=== PATIENT | female | born 1945 | race American Indian/Alaskan Native ===

== ENCOUNTER 2016-08-17 09:15 | Inpatient (IN) | payer MEDICARE, BC ==
--- NOTE | 2016-08-17 09:52 | ED PDOC ---
HPI: Chest Pain Time Seen by Provider: 08/17/16 09:31 Chief Complaint (Nursing): Dizziness/Lightheaded Chief Complaint (Provider): Dizziness/Lightheaded History Per: Patient History/Exam Limitations: no limitations Onset/Duration Of Symptoms: Hrs Current Symptoms Are (Timing): Still Present Associated Symptoms: denies: Nausea, Dyspnea Modifying Factors: None Exacerbating Factors: None Alleviating Factors: None Additional Complaint(s): 71 y/o female pt presents to the ER with dizziness and right-sided chest pain that started this morning. Patient states she has a past medical history of diabetes and CAD status post CABG. Patient denies palpations, syncope, nausea or vomiting. PT also reports left lower extremity pain with no swelling or calf tenderness. Past Medical History Reviewed: Historical Data, Nursing Documentation, Vital Signs Vital Signs: Last Vital Signs Temp 98.8 F 08/17/16 09:41 Pulse 76 08/17/16 09:41 Resp 18 08/17/16 09:41 BP 138/83 08/17/16 09:41 Pulse Ox 98 08/17/16 11:05 - Medical History PMH: Asthma (mild), CAD, COPD, Diabetes (type II), HTN, Hypercholesterolemia, Kidney Stones Denies: Chronic Kidney Disease - Surgical History Surgical History: CABG (quadruple), Coronary Stent Denies: Pacemaker - Family History Family History: States: Unknown Family Hx - Living Arrangements Living Arrangements: Alone - Home Medications Home Medications: Ambulatory Orders Medication Instructions Recorded Aspirin [Ecotrin] 81 mg PO DAILY 01/15/16 Clopidogrel [Plavix] 75 mg PO DAILY 01/15/16 Hydrochlorothiazide [Microzide] 12.5 mg PO DAILY 01/15/16 Insulin Glargine,Hum.rec.anlog 70 units SQ HS 01/15/16 [Toujeo Solostar] Insulin Lispro [humALOG] 14 units SQ BRK 01/15/16 Lisinopril [Zestril] 20 mg PO DAILY 01/15/16 Metoprolol Tartrate [Lopressor] 100 mg PO DAILY 01/15/16 SITagliptin [Januvia] 25 mg PO DAILY 01/15/16 amLODIPine [Norvasc] 5 mg PO DAILY 01/15/16 Cholecalciferol [Vitamin D 1000 IU] 1,000 unit PO DAILY 03/14/16 Insulin Lispro [humALOG] 18 unit SC ACL 03/14/16 Insulin Lispro [humALOG] 20 unit SC DIN 03/14/16 Nitroglycerin [Nitrostat] 0.4 mg SL Q5MIN PRN 03/14/16 - Allergies Allergies/Adverse Reactions: Allergies Allergy/AdvReac Type Severity Reaction Status Date / Time Penicillins Allergy RASH Verified 08/17/16 09:41 Wells Criteria for PE - Wells Criteria for Pulmonary Embolism Clinical Signs and Symptoms of DVT: No P.E is #1 Diagnosis, or Equally Likely: No Heart Rate >100: No Immobilization at least 3 days;Surgery previous 4 weeks: No Previous, objectively diagnosed PE or DVT: No Hemoptysis: No Malignancy w/treatment within 6 months, or palliative: No Total Score: 0 Review of Systems ROS Statement: Except As Marked, All Systems Reviewed And Found Negative Cardiovascular: Positive for: Chest Pain. Negative for: Palpitations Respiratory: Negative for: Shortness of Breath Gastrointestinal: Negative for: Nausea, Vomiting, Abdominal Pain Musculoskeletal: Positive for: Leg Pain Neurological: Positive for: Dizziness. Negative for: Weakness, Numbness, Headache Physical Exam - Reviewed Nursing Documentation Reviewed: Yes Vital Signs Reviewed: Yes - Physical Exam Appears: Positive for: Non-toxic, No Acute Distress Skin: Positive for: Normal Color, Warm Eye Exam: Positive for: Normal appearance, PERRL Neck: Positive for: Normal Cardiovascular/Chest: Positive for: Regular Rate, Rhythm. Negative for: Murmur Respiratory: Positive for: Normal Breath Sounds. Negative for: Respiratory Distress Gastrointestinal/Abdominal: Positive for: Normal Exam. Negative for: Tenderness Extremity: Positive for: Normal ROM. Negative for: Pedal Edema, Calf Tenderness Neurologic/Psych: Positive for: Alert, Oriented - Laboratory Results Result Diagrams: 08/17/16 09:55 08/17/16 09:55 - ECG O2 Sat by Pulse Oximetry: 98 (RA) Pulse Ox Interpretation: Normal Medical Decision Making Medical Decision Making: Time: 09:35 Initial impression: Dizziness and Chest Pain Initial plan: --CT-HEAD --EKG --CMP --TROPONIN --EKG-ED --CBC --CHEST X-RAY Time: 1045 Labs reviewed all WNL including negative Troponin Time:1100 CT-head results reviewed PROCEDURE: CT HEAD WITHOUT CONTRAST. HISTORY: r/o bleed COMPARISON: None available. TECHNIQUE: Axial computed tomography images were obtained through the head/brain without intravenous contrast. Radiation dose: Total exam DLP = 864.25 mGy-cm. This CT exam was performed using one or more of the following dose reduction techniques: Automated exposure control, adjustment of the mA and/or kV according to patient size, and/or use of iterative reconstruction technique. FINDINGS: HEMORRHAGE: No acute parenchymal, subarachnoid or extra-axial hemorrhage. BRAIN: Mild chronic periventricular white matter ischemic changes seen extending peripherally into the deep and subcortical white matter both cerebral hemispheres. None there may also be some extension of these changes into the white matter tracts of both basal nuclei. Mild vascular calcifications VENTRICLES: Mild age-appropriate volume loss CALVARIUM: There are no acute calvarial fracture seen. O. PARANASAL SINUSES: Unremarkable as visualized. No significant inflammatory changes. MASTOID AIR CELLS: Unremarkable as visualized. No inflammatory changes. OTHER FINDINGS: None. IMPRESSION: No acute intracranial hemorrhage. Mild chronic white matter ischemic changes. There appears to be some extension of these changes into white matter tracts of both basal nuclei. Mild generalized volume loss. Scribe Attestation: Documented by Petra Maza, Training Under Rhona Hatfield acting as a scribe for Santiago Clement MD MD Scribe Attestation: All medical record entries made by the Scribe were at my direction and personally dictated by me. I have reviewed the chart and agree that the record accurately reflects my personal performance of the history, physical exam, medical decision making, and the department course for this patient. I have also personally directed, reviewed, and agree with the discharge instructions and disposition. Disposition - Clinical Impression Clinical Impression: Dizziness, Chest pain - Patient ED Disposition Is Patient to be Admitted: Yes - Disposition Disposition Time: 11:39 Condition: FAIR - Pt Status Changed To: Hospital Disposition Of: Observation - POA Present On Arrival: None
[2016-08-17 10:12] LABS: ALB/GLOB RATIO 1.1 (1.0-2.1); BILIRUBIN,TOTAL 0.3 mg/dl (0.2-1.3); CALCIUM 9.4 mg/dL (8.4-10.2); POTASSIUM 3.9 MMOL/L (3.6-5.0); TOTAL PROTEIN 7.5 G/DL (6.3-8.2)
[2016-08-17 10:23] LABS: TROPONIN I 0.023 ng/mL (0.00-0.120)
--- NOTE | 2016-08-17 10:31 | RAD ---
HISTORY: dizziness COMPARISON: Comparison chest 03/14/2016 TECHNIQUE: Chest PA and lateral FINDINGS: LUNGS: Mild bibasilar atelectasis PLEURA: No significant pleural effusion identified. No pneumothorax apparent. CARDIOVASCULAR: Sternotomy wires and CABG clips. Heart size is upper limits of normal/borderline enlarged. Aorta is slightly ectatic and uncoiled. OSSEOUS STRUCTURES: No significant abnormalities. VISUALIZED UPPER ABDOMEN: Normal. OTHER FINDINGS: None. IMPRESSION: Mild bibasilar atelectasis
[2016-08-17 10:33] LABS: BASO # 0.1 K/uL (0.0-0.2); BASO % 0.6 % (0.0-2.0); EOS # 0.3 K/uL (0.0-0.7); EOS % 3.6 % (0.0-4.0); HEMATOCRIT 31.4 % (34.0-47.0); LYMPH # 1.8 K/uL (1.0-4.3); LYMPH % 21.1 % (20.0-40.0); MEAN CELL VOLUME 82.3 fl (81.0-99.0); MEAN CORPUSCULAR HEMOGLOBIN 26.6 pg (27.0-31.0); MEAN CORPUSCULAR HGB CONC 32.3 g/dL (33.0-37.0); MEAN PLATELET VOLUME 9.8 fl (7.2-11.7); MONO # 0.6 K/uL (0.0-0.8); MONO % 7.2 % (0.0-10.0); NEUT # 5.8 K/uL (1.8-7.0); NEUT % 67.5 % (50.0-75.0); WHITE BLOOD COUNT 8.6 K/uL (4.8-10.8)
--- NOTE | 2016-08-17 10:58 | CT ---
PROCEDURE: CT HEAD WITHOUT CONTRAST. HISTORY: r/o bleed COMPARISON: None available. TECHNIQUE: Axial computed tomography images were obtained through the head/brain without intravenous contrast. Radiation dose: Total exam DLP = 864.25 mGy-cm. This CT exam was performed using one or more of the following dose reduction techniques: Automated exposure control, adjustment of the mA and/or kV according to patient size, and/or use of iterative reconstruction technique. FINDINGS: HEMORRHAGE: No acute parenchymal, subarachnoid or extra-axial hemorrhage. BRAIN: Mild chronic periventricular white matter ischemic changes seen extending peripherally into the deep and subcortical white matter both cerebral hemispheres. None there may also be some extension of these changes into the white matter tracts of both basal nuclei. Mild vascular calcifications VENTRICLES: Mild age-appropriate volume loss CALVARIUM: There are no acute calvarial fracture seen. O. PARANASAL SINUSES: Unremarkable as visualized. No significant inflammatory changes. MASTOID AIR CELLS: Unremarkable as visualized. No inflammatory changes. OTHER FINDINGS: None. IMPRESSION: No acute intracranial hemorrhage. Mild chronic white matter ischemic changes. There appears to be some extension of these changes into white matter tracts of both basal nuclei. Mild generalized volume loss.
[2016-08-17] MEDS: Insulin Lispro (humaLOG) 100 Units/ml Inj SC SCH ×2 (17:50→22:42)
--- NOTE | 2016-08-17 18:24 | US ---
PROCEDURE: Right lower extremity venous Doppler dated 08/17/2016 HISTORY: left leg pain, r/o DVT COMPARISON: Comparison made with prior bilateral lower extremity venous Doppler study dated 05/03/2013. TECHNIQUE: Sonographic evaluation of the deep veins right lower extremity performed in standard fashion. FINDINGS: Visualized deep veins of the right lower extremity exhibit normal flow, compressibility augmentation without evidence of DVT IMPRESSION: No evidence of DVT seen within the visualized deep veins right lower extremity.
[2016-08-17 18:52] VITALS: BMI 30.1
--- NOTE | 2016-08-17 21:46 | CP.PCM.HP ---
History of Present Illness - History of Present Illness History of Present Illness: 71 y/o female pt with past medical history of diabetes CKD and CAD status post CABG presents to the ER with dizziness and right-sided chest pain that started this morning. Patient states she had similar sx yesterday associated with exertion. Pt recently seen in office for uncontrolled HTN and Diabetes Present on Admission - Present on Admission Any Indicators Present on Admission: No Past Patient History - Infectious Disease Hx of Infectious Diseases: None - Tetanus Immunizations Tetanus Immunization: Unknown - Past Medical History & Family History Past Medical History?: Yes - Past Social History Smoking Status: Former Smoker - CARDIAC Hx Cardiac Disorders: Yes Hx Hypercholesterolemia: Yes Hx Hypertension: Yes - PULMONARY Hx Respiratory Disorders: Yes Hx Asthma: Yes Hx Chronic Obstructive Pulmonary Disease (COPD): Yes - NEUROLOGICAL Hx Neurological Disorder: No - HEENT Hx HEENT Problems: No - RENAL Hx Chronic Kidney Disease: Yes Hx Kidney Stones: Yes - ENDOCRINE/METABOLIC Hx Endocrine Disorders: Yes Hx Diabetes Mellitus Type 2: Yes - HEMATOLOGICAL/ONCOLOGICAL Hx Blood Disorders: No Hx Blood Transfusions: No Hx Blood Transfusion Reaction: No Other/Comment: DVT at the age of 28yrs old. - INTEGUMENTARY Hx Dermatological Problems: No - MUSCULOSKELETAL/RHEUMATOLOGICAL Hx Falls: No - GASTROINTESTINAL Hx Gastrointestinal Disorders: No - GENITOURINARY/GYNECOLOGICAL Hx Genitourinary Disorders: No - PSYCHIATRIC Hx Substance Use: No - SURGICAL HISTORY Hx Coronary Artery Bypass Graft: Yes (quadruple) Hx Coronary Stent: Yes Hx Hysterectomy: Yes Hx Tonsillectomy: Yes - ANESTHESIA Hx Anesthesia: Yes Hx Anesthesia Reactions: No Hx Malignant Hyperthermia: No Has any member of the family had a problem w/ anesthesia?: No Meds Allergies/Adverse Reactions: Allergies Allergy/AdvReac Type Severity Reaction Status Date / Time Penicillins Allergy RASH Verified 08/17/16 09:41 Physical Exam - Respiratory Exam Respiratory Exam: NORMAL BREATHING PATTERN - Cardiovascular Exam Cardiovascular Exam: REGULAR RHYTHM - GI/Abdominal Exam GI & Abdominal Exam: Normal Bowel Sounds Results - Vital Signs Recent Vital Signs: Last Vital Signs Temp 98.4 F 08/17/16 19:20 Pulse 69 08/17/16 20:37 Resp 20 08/17/16 19:20 BP 164/79 H 08/17/16 19:20 Pulse Ox 97 08/17/16 19:20 - Labs Result Diagrams: 08/17/16 09:55 08/17/16 09:55 Labs: Laboratory Results - last 24 hr 08/17/16 08/17/16 16:19 17:12 POC Glucose (mg/dL) 142 H Troponin I 0.0260 Assessment & Plan - Assessment and Plan (Free Text) Assessment: Dizziness and right-sided chest pain CAD status post CABG EKG [facility]iology DM CKD uncontrolled Endo HTN uncontrolled Monitor closely - Date & Time Date: 08/17/16 Time: 22:22
[2016-08-17] MEDS: Insulin Detemir 100 Units/ml Inj SC SCH (22:42)
--- NOTE | 2016-08-17 23:16 | CON ---
DATE: 08/17/2016 ROOM: 410 HISTORY OF PRESENT ILLNESS: This is a 71-year-old female with known history of type 2 insulin-requir ing diabetes, presenting here with sudden onset of precordial chest pain and supervening dizziness an d lightheadedness and has now been admitted for workup of acute coronary syndrome, especially in the light of significant cardiac vasculopathy. PAST MEDICAL HISTORY: As mentioned above, history of uncontrolled type 2 requiring diabetes, current ly on the basal and bolus insulin drug combination as given. Her last A1c done almost a year ago was 9.1%. She is currently on a combination of Toujeo given as basal insulin at 70 units at bedtime wit h Humalog given at a dose of 14 units a.c. breakfast, 18 units a.c. lunch and 20 units a.c. dinner. She is also on Januvia at 25 mg once daily. History of coronary artery disease with a previous quadr uple coronary artery bypass graft surgery with subsequent stent placement, history of diabetic retino rojelio, polyneuropathy and nephropathy with progressive renal insufficiency and underlying chronic kid ramón disease, history of peripheral arterial disease and vasculopathy, history of primary hyperparathy roidism with prior history of nephrolithiasis. History of chronic obstructive lung disease and also chronic asthma. FAMILY HISTORY: Positive for hypertension and diabetes. SOCIAL HISTORY: The patient has supportive family. No known substance use. REVIEW OF SYSTEMS: Admits to generalized body weakness with easy fatigability and tiredness and subo ptimal energy level. Also admits to sudden onset of dizziness and lightheadedness, worse on the day of admission. Moreover, admits to sudden onset of precordial chest pain with supervening shortness o f breath, especially on exertion. Her oral intake is variable and admits to nausea and dyspepsia and vague upper abdominal pain with habitual constipation. PHYSICAL EXAMINATION: GENERAL: This is an average built female in no apparent distress. VITAL SIGNS: Blood pressure of 140/80, pulse of 70 beats per minute and regular, temperature 98, res pirations 20. Height is 5 feet 3, weight is 170 pounds. HEENT: Head normocephalic. Eyes anicteric with pink conjunctivae. Fundoscopy not possible at this time. Ears, nose and throat otherwise normal. NECK: Supple. Thyroid gland is normal size. No carotid bruits. No cervical adenopathy. CARDIOPULMONARY: Some adynamic precordium. S1, S2 is rapid and regular. LUNGS: Clear to auscultation. ABDOMEN: Flat, soft with positive bowel sounds. EXTREMITIES: No peripheral edema. Pulses are +2 bilaterally. LABORATORY DATA: Chemistry showed a BUN of 29, sodium 139, potassium 3.9, chloride 105, CO2 of 25, g lucose 187 and creatinine 2.1. Her subsequent glucose level is 142. Troponin of 0.23 and 0.26. ASSESSMENT: This is a 71-year-old female with uncontrolled type 2 insulin-requiring diabetes, efren whittaker here with sudden onset of dizziness and lightheadedness with associated precordial chest pain an d now undergoing evaluation for acute coronary syndrome. She has a significant history of cardiac va sculopathy with coronary artery disease and a previous quadruple coronary artery bypass graft surgery and subsequent stent placement. She also has diabetic microvascular complications of retinopathy, p olyneuropathy, and nephropathy with underlying chronic kidney disease. PLAN OF MANAGEMENT: As discussed with the patient and the staff, we will continue the current basal and bolus insulin drug combination as given. We will titrate incrementally as indicated to optimize metabolic control. We will give her a very minimal coverage scale with Humalog coverage as ordered a nd detailed orders have been given to obviate hypoglycemia. We will obtain a parathyroid hormone int act level to screen for underlying secondary primary hyperparathyroidism, especially in the light of a prior parathyroid related hypercalcemia. We will also obtain a hemoglobin A1c to confirm her prior glycemic control and baseline thyroid function studies and lipid panel will be ordered. We will obt ain a serum phosphorus and magnesium level and also advised 25-hydroxy vitamin D level. We will foll ow and advise accordingly. Vika Villanueva MD cc: [id number] TT: 08/17/2016 23:15:33 Confirmation # [id number] Dictation # [id number] mn
[2016-08-18 06:09] LABS: BILIRUBIN,TOTAL 0.3 mg/dl (0.2-1.3); CALCIUM 9.5 mg/dL (8.4-10.2); MAGNESIUM 2.3 MG/DL (1.6-2.3); PHOSPHOROUS 3.9 mg/dl (2.5-4.5); POTASSIUM 3.7 MMOL/L (3.6-5.0); TOTAL PROTEIN 7.3 G/DL (6.3-8.2)
[2016-08-18 06:42] LABS: THYROID STIMULATING HORMONE 1.88 mIU/ML (0.46-4.68)
[2016-08-18] MEDS: Insulin Lispro (humaLOG) 100 Units/ml Inj SC SCH ×7 (06:53→21:43)
[2016-08-18] MEDS: Enoxaparin 30 mg Syringe SC SCH (08:43)
--- NOTE | 2016-08-18 10:32 | CP.PCM.CON ---
History of Present Illness - History of Present Illness History of Present Illness: Full Note Dictated. Atypical chest pain S/P CABG and cor Stenting (in 09/2015) DM(II)/HTN/Dyslipidemia CKD exsmoker ACS ruled out, may go home and be managed as out pt. Past Patient History - Infectious Disease Hx of Infectious Diseases: None - Tetanus Immunizations Tetanus Immunization: Unknown - Past Medical History & Family History Past Medical History?: Yes - Past Social History Smoking Status: Former Smoker - CARDIAC Hx Cardiac Disorders: Yes Hx Hypercholesterolemia: Yes Hx Hypertension: Yes - PULMONARY Hx Respiratory Disorders: Yes Hx Asthma: Yes Hx Chronic Obstructive Pulmonary Disease (COPD): Yes - NEUROLOGICAL Hx Neurological Disorder: No - HEENT Hx HEENT Problems: No - RENAL Hx Chronic Kidney Disease: Yes Hx Kidney Stones: Yes - ENDOCRINE/METABOLIC Hx Endocrine Disorders: Yes Hx Diabetes Mellitus Type 2: Yes - HEMATOLOGICAL/ONCOLOGICAL Hx Blood Disorders: No Hx Blood Transfusions: No Hx Blood Transfusion Reaction: No Other/Comment: DVT at the age of 28yrs old. - INTEGUMENTARY Hx Dermatological Problems: No - MUSCULOSKELETAL/RHEUMATOLOGICAL Hx Falls: No - GASTROINTESTINAL Hx Gastrointestinal Disorders: No - GENITOURINARY/GYNECOLOGICAL Hx Genitourinary Disorders: No - PSYCHIATRIC Hx Substance Use: No - SURGICAL HISTORY Hx Coronary Artery Bypass Graft: Yes (quadruple) Hx Coronary Stent: Yes Hx Hysterectomy: Yes Hx Tonsillectomy: Yes - ANESTHESIA Hx Anesthesia: Yes Hx Anesthesia Reactions: No Hx Malignant Hyperthermia: No Has any member of the family had a problem w/ anesthesia?: No Meds Allergies/Adverse Reactions: Allergies Allergy/AdvReac Type Severity Reaction Status Date / Time Penicillins Allergy RASH Verified 08/17/16 09:41 - Medications Medications: Current Medications Amlodipine Besylate (Norvasc) 5 mg PO DAILY [facility] Last Admin: 08/18/16 08:44 Dose: 5 mg Aspirin (Ecotrin) 81 mg PO DAILY [facility] Last Admin: 08/18/16 08:43 Dose: 81 mg Cholecalciferol (Vitamin D) 1,000 iu PO DAILY [facility] Last Admin: 08/18/16 08:43 Dose: 1,000 iu Clopidogrel Bisulfate (Plavix) 75 mg PO DAILY [facility] Last Admin: 08/18/16 08:43 Dose: 75 mg Enoxaparin Sodium (Lovenox) 30 mg SC DAILY [facility] PRN Reason: Protocol Last Admin: 08/18/16 08:43 Dose: 30 mg Hydrochlorothiazide (Microzide) 12.5 mg PO DAILY [facility] Last Admin: 08/18/16 08:45 Dose: 12.5 mg Insulin Detemir (Levemir) 70 units SC HS [facility] Last Admin: 08/17/16 22:42 Dose: Not Given Insulin Human Lispro (Humalog) 14 units SC BRK [facility] Last Admin: 08/18/16 08:44 Dose: 14 units Insulin Human Lispro (Humalog) 18 units SC ACL SHIRA Insulin Human Lispro (Humalog) 20 units SC DIN [facility] Last Admin: 08/17/16 17:50 Dose: Not Given Insulin Human Lispro (Humalog) 0 units SC ACHS [facility] PRN Reason: Protocol Last Admin: 08/18/16 06:53 Dose: Not Given Lisinopril (Zestril) 20 mg PO DAILY [facility] Last Admin: 08/18/16 08:44 Dose: 20 mg Metoprolol Tartrate (Lopressor) 100 mg PO DAILY [facility] Last Admin: 08/18/16 08:45 Dose: 100 mg Nitroglycerin (Nitrostat Sl Tab) 0.4 mg SL Q5MIN PRN PRN Reason: chest pain Sitagliptin Phosphate (Januvia) 25 mg PO DAILY [facility] Last Admin: 08/18/16 08:44 Dose: 25 mg Results - Vital Signs Recent Vital Signs: Last Vital Signs Temp 98.5 F 08/18/16 08:09 Pulse 70 08/18/16 08:45 Resp 18 08/18/16 08:09 BP 149/80 08/18/16 08:45 Pulse Ox 98 08/18/16 08:09 - Labs Result Diagrams: 08/17/16 09:55 08/18/16 05:41 Labs: Laboratory Results - last 24 hr 08/17/16 08/17/16 08/17/16 16:19 17:12 22:35 Sodium Potassium Chloride Carbon Dioxide Anion Gap BUN Creatinine Est GFR ( Amer) Est GFR (Non-Af Amer) POC Glucose (mg/dL) 142 H 124 H Random Glucose Calcium Phosphorus Magnesium Total Bilirubin AST ALT Alkaline Phosphatase Troponin I 0.0260 Total Protein Albumin Globulin Albumin/Globulin Ratio Triglycerides Cholesterol LDL Cholesterol Direct HDL Cholesterol TSH 3rd Generation 08/18/16 08/18/16 05:02 05:41 Sodium 140 Potassium 3.7 Chloride 105 Carbon Dioxide 25 Anion Gap 13 BUN 30 H Creatinine 2.1 H Est GFR ( Amer) 28 Est GFR (Non-Af Amer) 23 POC Glucose (mg/dL) 118 H Random Glucose 123 H Calcium 9.5 Phosphorus 3.9 Magnesium 2.3 Total Bilirubin 0.3 AST 26 ALT 24 Alkaline Phosphatase 69 Troponin I Total Protein 7.3 Albumin 3.7 Globulin 3.6 Albumin/Globulin Ratio 1.0 Triglycerides 383 H Cholesterol 206 H LDL Cholesterol Direct 75 HDL Cholesterol 31 TSH 3rd Generation 1.88
--- NOTE | 2016-08-18 11:47 | PN ---
DATE: 08/18/2016 ENDO FOLLOWUP NOTE ROOM: 410. SUBJECTIVE: This is a 71-year-old female with recent uncontrolled type 2 insulin-requiring diabetes, presenting here with precordial chest pain and severe bouts of dizziness and lightheadedness, johnny tlamanda undergoing a cardiac workup for acute coronary syndrome and is also being followed closely for me tabolic management. Her glycemic levels have surprisingly remained near optimal at this time and have ranged from 118-124 and 142 mg/dL. LABORATORY DATA: Her latest chemistry showed a BUN of 30, sodium 140, potassium 3.7, chloride 105, C O2 of 25, glucose 123, and creatinine 2.1. Her triglyceride levels are 383 with a cholesterol of 206 , and LDL of 75 and HDL of 31. The TSH is 1.88. ASSESSMENT: This is a 71-year-old female with uncontrolled and decompensated type 2 insulin-requirin g diabetes with prior history of suboptimal metabolic control and A1c levels ranging from 9-10%, curr ently admitted now for acute coronary syndrome and undergoing cardiac workup as noted. She also has significant diabetic microvascular complications of retinopathy, polyneuropathy, and nephropathy with underlying chronic kidney disease and progressive renal insufficiency. There is also significant hi story of diabetic macrovascular complications of coronary artery disease with a previous coronary art monica bypass graft surgery and stent placement with underlying peripheral arterial disease and vasculop athy. PLAN OF MANAGEMENT: As discussed with the patient and staff, we will continue the same basal and vandana us insulin regimen as given with Levemir given as 70 units subQ at bedtime daily as ordered. We will continue the prandial Humalog given as 14 units at breakfast time, 18 at lunchtime, and 20 at dinner time. We will continue the low-dose correction scale using Humalog insulin as ordered. We will titr ate incrementally as indicated to optimize metabolic control. We will follow and advise accordingly. Vika Villanueva MD cc: [id number] TT: 08/18/2016 11:46:23 Confirmation # [id number] Dictation # [id number]
--- NOTE | 2016-08-18 15:58 | CON ---
DATE: 08/18/2016 She is hospitalized under Dr. West's care in room 410, bed 1. HISTORY OF PRESENT ILLNESS: This 71-year-old female, hypertensive and diabetic, and ex-smoker, who required coronary bypass graft surgery more than 40 years back, and required coronary stenting in September of last year, came into the hospital complaining of a vague sense of discomfort sta rting in the right side of the neck and radiating down to the right side of her chest, unconnected to physical activities. She also complained of a sense of lightheadedness without any palpitations. T hese had occurred not during exertion. The patient has been able to walk approximately 8 blocks or s o to her physician's office without having to stop. She has never manifested overt congestive cardia c failure. She has quit smoking for more than 4-5 years now. She was recently seen by a nephrologis t because of worsening kidney status. PHYSICAL EXAMINATION: GENERAL: Shows a middle-aged female, alert, awake, coherent. VITAL SIGNS: Afebrile, comfortable at bed rest, with a respiratory rate of 16 breaths per minute and a heart rate of 70 beats per minute, regular. Her blood pressure was 134/84 mmHg. NECK: Her jugular venous pressure was not elevated. EXTREMITIES: There was no edema of lower extremity. The pedal pulses were extremely feeble. NECK: There were no carotid bruits. ABDOMEN: There were no abdominal bruits. Abdomen was soft. Liver and spleen were not palpable. CHEST: A scar of sternotomy was evident. HEART: The first and second heart sounds were normal. There was no murmur or gallop. LUNGS: There were no rales. There were scattered rhonchi and no crepitations. DIAGNOSTIC DATA: Her electrocardiogram showed sinus rhythm with a pattern of borderline left ventric ular hypertrophy with attendant ST and T changes, T inversion in lead I, aVL, lead II, and V3-V6, a p attern seen on earlier electrocardiogram of 02/2016, as well. LABORATORY DATA: Was noted. The troponin was negative on 2 consecutive samples 8 hours apart, so th ere was no evidence of myocyte injury. Her BUN and creatinine were 30 and 2.1 mg %. Her GFR was 28. Electrolytes were normal. Her triglycerides were elevated due to her diabetic status. TSH was nor mal. Her hemoglobin and hematocrit were 10.2 g and 31.4%. This was a normocytic normochromic pictur e. IMPRESSION: At this time is atypical chest pain in a patient with known coronary artery disease with status post coronary bypass graft surgeries, status post coronary stenting in 09/2015, diabetes melli tus, hypertension, dyslipidemia, with chronic kidney disease. The patient is an ex-smoker. She is s table from cardiovascular point of view. Acute coronary syndrome has been ruled out. The patient ma y be allowed to return home and continue treatment as an outpatient. Christopher López MD cc: [id number] TT: 08/18/2016 15:57:30 Confirmation # [id number] Dictation # [id number]
--- NOTE | 2016-08-18 16:46 | CP.PCM.CON ---
History of Present Illness - History of Present Illness History of Present Illness: pt seen and examined, full consult is dictated #[id number] 1.CKD-3 2.Proteinuria 3.CAD 4.HTN 5.DM r/o DM nephropathy vs htn nephrosclerosis or both r/o ch gn check 24 hr up,cr,cr cl, pth intact, hept.bsg,sb, PAPO, c3, c4 Past Patient History - Infectious Disease Hx of Infectious Diseases: None - Tetanus Immunizations Tetanus Immunization: Unknown - Past Medical History & Family History Past Medical History?: Yes - Past Social History Smoking Status: Former Smoker - CARDIAC Hx Cardiac Disorders: Yes Hx Hypercholesterolemia: Yes Hx Hypertension: Yes - PULMONARY Hx Respiratory Disorders: Yes Hx Asthma: Yes Hx Chronic Obstructive Pulmonary Disease (COPD): Yes - NEUROLOGICAL Hx Neurological Disorder: No - HEENT Hx HEENT Problems: No - RENAL Hx Chronic Kidney Disease: Yes Hx Kidney Stones: Yes - ENDOCRINE/METABOLIC Hx Endocrine Disorders: Yes Hx Diabetes Mellitus Type 2: Yes - HEMATOLOGICAL/ONCOLOGICAL Hx Blood Disorders: No Hx Blood Transfusions: No Hx Blood Transfusion Reaction: No Other/Comment: DVT at the age of 28yrs old. - INTEGUMENTARY Hx Dermatological Problems: No - MUSCULOSKELETAL/RHEUMATOLOGICAL Hx Falls: No - GASTROINTESTINAL Hx Gastrointestinal Disorders: No - GENITOURINARY/GYNECOLOGICAL Hx Genitourinary Disorders: No - PSYCHIATRIC Hx Substance Use: No - SURGICAL HISTORY Hx Coronary Artery Bypass Graft: Yes (quadruple) Hx Coronary Stent: Yes Hx Hysterectomy: Yes Hx Tonsillectomy: Yes - ANESTHESIA Hx Anesthesia: Yes Hx Anesthesia Reactions: No Hx Malignant Hyperthermia: No Has any member of the family had a problem w/ anesthesia?: No Meds Allergies/Adverse Reactions: Allergies Allergy/AdvReac Type Severity Reaction Status Date / Time Penicillins Allergy RASH Verified 08/17/16 09:41 - Medications Medications: Current Medications Amlodipine Besylate (Norvasc) 5 mg PO DAILY [facility] Last Admin: 08/18/16 08:44 Dose: 5 mg Aspirin (Ecotrin) 81 mg PO DAILY [facility] Last Admin: 08/18/16 08:43 Dose: 81 mg Cholecalciferol (Vitamin D) 1,000 iu PO DAILY [facility] Last Admin: 08/18/16 08:43 Dose: 1,000 iu Clopidogrel Bisulfate (Plavix) 75 mg PO DAILY [facility] Last Admin: 08/18/16 08:43 Dose: 75 mg Enoxaparin Sodium (Lovenox) 30 mg SC DAILY [facility] PRN Reason: Protocol Last Admin: 08/18/16 08:43 Dose: 30 mg Hydrochlorothiazide (Microzide) 12.5 mg PO DAILY [facility] Last Admin: 08/18/16 08:45 Dose: 12.5 mg Insulin Detemir (Levemir) 70 units SC HS [facility] Last Admin: 08/17/16 22:42 Dose: Not Given Insulin Human Lispro (Humalog) 14 units SC BRK [facility] Last Admin: 08/18/16 08:44 Dose: 14 units Insulin Human Lispro (Humalog) 18 units SC ACL [facility] Last Admin: 08/18/16 12:30 Dose: 18 units Insulin Human Lispro (Humalog) 20 units SC DIN [facility] Last Admin: 08/17/16 17:50 Dose: Not Given Insulin Human Lispro (Humalog) 0 units SC ACHS [facility] PRN Reason: Protocol Last Admin: 08/18/16 12:30 Dose: Not Given Lisinopril (Zestril) 20 mg PO DAILY [facility] Last Admin: 08/18/16 08:44 Dose: 20 mg Metoprolol Tartrate (Lopressor) 100 mg PO DAILY [facility] Last Admin: 08/18/16 08:45 Dose: 100 mg Nitroglycerin (Nitrostat Sl Tab) 0.4 mg SL Q5MIN PRN PRN Reason: chest pain Sitagliptin Phosphate (Januvia) 25 mg PO DAILY [facility] Last Admin: 08/18/16 08:44 Dose: 25 mg Results - Vital Signs Recent Vital Signs: Last Vital Signs Temp 98.2 F 08/18/16 16:31 Pulse 71 08/18/16 16:31 Resp 18 08/18/16 16:31 BP 148/84 08/18/16 16:31 Pulse Ox 99 08/18/16 16:31 - Labs Result Diagrams: 08/17/16 09:55 08/18/16 05:41 Labs: Laboratory Results - last 24 hr 08/17/16 08/17/16 08/17/16 16:19 17:12 22:35 Sodium Potassium Chloride Carbon Dioxide Anion Gap BUN Creatinine Est GFR ( Amer) Est GFR (Non-Af Amer) POC Glucose (mg/dL) 142 H 124 H Random Glucose Hemoglobin A1c Calcium Phosphorus Magnesium Total Bilirubin AST ALT Alkaline Phosphatase Troponin I 0.0260 Total Protein Albumin Globulin Albumin/Globulin Ratio Triglycerides Cholesterol LDL Cholesterol Direct HDL Cholesterol 25-OH Vitamin D Total TSH 3rd Generation 08/18/16 08/18/16 08/18/16 05:02 05:41 05:41 Sodium 140 Potassium 3.7 Chloride 105 Carbon Dioxide 25 Anion Gap 13 BUN 30 H Creatinine 2.1 H Est GFR ( Amer) 28 Est GFR (Non-Af Amer) 23 POC Glucose (mg/dL) 118 H Random Glucose 123 H Hemoglobin A1c 9.4 H Calcium 9.5 Phosphorus 3.9 Magnesium 2.3 Total Bilirubin 0.3 AST 26 ALT 24 Alkaline Phosphatase 69 Troponin I Total Protein 7.3 Albumin 3.7 Globulin 3.6 Albumin/Globulin Ratio 1.0 Triglycerides 383 H Cholesterol 206 H LDL Cholesterol Direct 75 HDL Cholesterol 31 25-OH Vitamin D Total TSH 3rd Generation 1.88 08/18/16 08/18/16 08/18/16 05:41 11:30 15:43 Sodium Potassium Chloride Carbon Dioxide Anion Gap BUN Creatinine Est GFR ( Amer) Est GFR (Non-Af Amer) POC Glucose (mg/dL) 243 H 123 H Random Glucose Hemoglobin A1c Calcium Phosphorus Magnesium Total Bilirubin AST ALT Alkaline Phosphatase Troponin I Total Protein Albumin Globulin Albumin/Globulin Ratio Triglycerides Cholesterol LDL Cholesterol Direct HDL Cholesterol 25-OH Vitamin D Total < 12.8 L TSH 3rd Generation
--- NOTE | 2016-08-18 19:50 | CP.PCM.PN ---
Subjective - Date & Time of Evaluation Date of Evaluation: 08/11/16 Time of Evaluation: 22:22 - Subjective Subjective: Above noted Objective - Vital Signs/Intake and Output Vital Signs (last 24 hours): Temp Pulse Resp BP Pulse Ox 98.2 F 71 18 148/84 99 08/18/16 16:31 08/18/16 16:31 08/18/16 16:31 08/18/16 16:31 08/18/16 16:31 Intake and Output: 08/18/16 08/19/16 18:59 06:59 Intake Total 700 Balance 700 - Medications Medications: Current Medications Amlodipine Besylate (Norvasc) 5 mg PO DAILY [facility] Last Admin: 08/18/16 08:44 Dose: 5 mg Aspirin (Ecotrin) 81 mg PO DAILY [facility] Last Admin: 08/18/16 08:43 Dose: 81 mg Cholecalciferol (Vitamin D) 1,000 iu PO DAILY [facility] Last Admin: 08/18/16 08:43 Dose: 1,000 iu Clopidogrel Bisulfate (Plavix) 75 mg PO DAILY [facility] Last Admin: 08/18/16 08:43 Dose: 75 mg Enoxaparin Sodium (Lovenox) 30 mg SC DAILY [facility] PRN Reason: Protocol Last Admin: 08/18/16 08:43 Dose: 30 mg Hydrochlorothiazide (Microzide) 12.5 mg PO DAILY [facility] Last Admin: 08/18/16 08:45 Dose: 12.5 mg Insulin Detemir (Levemir) 70 units SC HS [facility] Last Admin: 08/17/16 22:42 Dose: Not Given Insulin Human Lispro (Humalog) 14 units SC BRK [facility] Last Admin: 08/18/16 08:44 Dose: 14 units Insulin Human Lispro (Humalog) 18 units SC ACL [facility] Last Admin: 08/18/16 12:30 Dose: 18 units Insulin Human Lispro (Humalog) 20 units SC DIN [facility] Last Admin: 08/18/16 17:08 Dose: 20 units Insulin Human Lispro (Humalog) 0 units SC ACHS [facility] PRN Reason: Protocol Last Admin: 08/18/16 17:06 Dose: Not Given Lisinopril (Zestril) 20 mg PO DAILY [facility] Last Admin: 08/18/16 08:44 Dose: 20 mg Metoprolol Tartrate (Lopressor) 100 mg PO DAILY [facility] Last Admin: 08/18/16 08:45 Dose: 100 mg Nitroglycerin (Nitrostat Sl Tab) 0.4 mg SL Q5MIN PRN PRN Reason: chest pain Sitagliptin Phosphate (Januvia) 25 mg PO DAILY [facility] Last Admin: 08/18/16 08:44 Dose: 25 mg - Labs Labs: 08/18/16 05:41 - Respiratory Exam Respiratory Exam: NORMAL BREATHING PATTERN - Cardiovascular Exam Cardiovascular Exam: REGULAR RHYTHM - GI/Abdominal Exam GI & Abdominal Exam: Normal Bowel Sounds Assessment and Plan - Assessment and Plan (Free Text) Assessment: Dizziness and right-sided chest pain CAD status post CABG EKG CE wnl Cardiology note appreciated DM CKD uncontrolled Endo Nephrology HTN uncontrolled Monitor closely
[2016-08-18] MEDS: Insulin Detemir 100 Units/ml Inj SC SCH (21:44)
[2016-08-19] MEDS: Insulin Lispro (humaLOG) 100 Units/ml Inj SC SCH ×4 (06:35→13:13)
[2016-08-19 08:18] VITALS: RESP 18
--- NOTE | 2016-08-19 08:24 | CON ---
DATE: 08/18/2016 REQUESTING PHYSICIAN: Dr. Jesús Ellis. REASON FOR RENAL CONSULTATION: Chronic kidney disease, proteinuria for further evaluation. HISTORY OF PRESENT ILLNESS: The patient is a 71-year-old elderly obese female with a past medical history significant for diabetes since age 58, hypertension since age 58, hyperlipidemia, coronary artery disease, status post CABG, quadruple in 2012 and status post stent in 2016 and chronic kidney disease, who was admitted with a chief complaint of feeling dizzy, lightheaded and near syncope, but patient claims she did not lose any consciousness. Denies any nausea, vomiting. Denies any fever, cough. Denies any abdominal pain. Denies any dysuria or frequency. The patient claims she had chest discomfort the day before yesterday but denies any chest pain today. As per the patient, she went to the grocery store yesterday and she felt dizzy and then she came out and she tried to walk. Again, she felt dizzy and then she called her daughter, who brought her to the hospital for further evaluation. The patient also claims her pressure was high yesterday. The patient is not in acute distress at this time. PAST MEDICAL HISTORY: Hypertension since age 58, diabetes since age 58, hyperlipidemia, coronary artery disease, chronic kidney disease. PAST SURGICAL HISTORY: CABG in 2012 and coronary stents, stents, in 2016. ALLERGIES: ALLERGIC TO PENICILLIN. SOCIAL HISTORY: The patient was an ex-smoker, used to smoke 1 pack per week from the age of 18 to 58, about 40 years and ex-alcohol use, used to drink on the weekends. No drug abuse. PERSONAL HISTORY: She is a , her is . FAMILY HISTORY: Not significant. She has 5 children. CURRENT MEDICATIONS: Include aspirin 81 mg daily, insulin Lispro 14 units subQ with breakfast and 18 units subQ ACL, Januvia 25 mg p.o. daily, Levemir 70 units subQ at bedtime, metoprolol 100 mg p.o. daily, Lovenox 30 mg subQ daily, hydrochlorothiazide 12.5 mg daily, nitroglycerin 0.4 mg subQ q. 5 minutes p.r.n. for chest pain, amlodipine 5 mg daily, Plavix 75 mg daily, cholecalciferol 1000 units p.o. daily and lisinopril 20 mg p.o. daily. REVIEW OF SYSTEMS: Significant for dizziness and also got loose bowel movement today. Chest pain 1 day prior to the admission. All other review of systems are reviewed and are negative. PHYSICAL EXAMINATION: VITAL SIGNS: Blood pressure this afternoon 122/74 and current blood pressure 148/84, pulse 71, respirations 18, temperature 98.2, saturation 99%. Height 5 feet 3 inches and weight is 170 pounds. GENERAL: The patient is a 71-year-old elderly obese female with height 5 feet and weight is 170 pounds. BMI 30.1. HEENT: Pupils normal, reactive to light and accommodation. Conjunctivae pink. Sclerae anicteric. Tongue is moist. NECK: Trachea is midline. LUNGS: Symmetric on both sides. Bilateral breath sounds present. Clear on auscultation. CARDIOVASCULAR: [place] in the fifth intercostal space midclavicular line. S1 and S2 audible. No murmur, no gallop. The patient has a midsternal scar present from the previous CABG. ABDOMEN: Normal in appearance, soft, tympanic. No guarding, no rigidity. No hepatosplenomegaly. The patient has a midline subumbilical scar present from the previous hysterectomy and partial ovarian surgery. PAST SURGICAL HISTORY: CABG, coronary stents x 2 in 2016 and partial hysterectomy and also bilateral big toe surgeries and also tonsillectomy and parathyroid surgery and tumor removal a long time ago. LABORATORY DATA: As of 08/17/2016, sodium 140, potassium 3.7, chloride 105, CO2 25, BUN 30, creatinine 2.1, glucose 123, calcium 9.5, hemoglobin A1c 9.4, calcium 9.5, phosphorus 3.9, magnesium 2.3, total bilirubin 0.3, AST 26, ALT 24 , alkaline phosphatase is 69, and troponin 0.026, total protein 7.3, albumin is 3.7, triglycerides 383. Cholesterol is 206, LDL 75, HDL is 31. Vitamin D level 12.8. TSH is 1.88. Urinalysis as of 05/21/2015: Yellow, clear, protein more than 300 and Ketones negative and blood is trace, nitrites negative, bilirubin is negative and urobilinogen 0.2, and leukocyte esterase negative, RBC 0-2, WBC 1-3, bacteria few. Urine microalbumin is more than 950 mg/L as of 05/02/2015. Ultrasound of the kidneys as of 02/23/2016: Right kidney 9.0x 4.5 x 4.4 cm, left kidney is 9.3 x 4.4 cm x 4.5 cm. Nonobstructing calculus, hydronephrosis identified, a 1 x 1.2 x 1.2 cm cyst along the lateral aspect of the left mid pole. No obstructing calculus or hydronephrosis identified. SUMMARY: The patient is a 71-year-old elderly female, obese, with a history of hypertension, diabetes, hyperlipidemia, coronary artery disease, status post CABG, status post 2 stents in 2016. History of partial hysterectomy and also gallstones and parathyroid tumor and bilateral big toe surgeries, proteinuria and chronic kidney disease, baseline creatinine around 1.6 on 02/18/2012 and creatinine on 01/17/2014 of 1.9, and as of 10/01/2015, serum creatinine 2.0 with a GFR of about 28 mL. In summary, the patient with hypertension, diabetes, CKD and proteinuria. 1. Chronic kidney disease stage III to IV, most likely secondary to diabetic nephropathy and cannot rule out underlying hypertensive nephrosclerosis, cannot rule out chronic glomerulonephritis. 2. Proteinuria, most likely secondary to diabetes mellitus nephropathy. 3. Hypertension. Blood pressure is stable. Continue her current medication, amlodipine and lisinopril, and try to keep her blood pressure below 130/80. 4. Diabetes. Sugars are still uncontrolled. Try to keep the hemoglobin A1c below 7. Check 24-hour urine protein, creatinine clearance, hepatitis B surface antigen, surface antibody and hep C antibody was negative in the past, and we will also check complement levels C3 and C4 and PTH intact level. We will follow with you. Thank you for allowing me to participate in your patient's care. Saida Reid MD cc: [id number] TT: 08/18/2016 18:53:11 Confirmation # [id number] Dictation # [id number] ln MTDD
[2016-08-19] MEDS: Enoxaparin 30 mg Syringe SC SCH (08:41)
[2016-08-19 12:20] VITALS: BP 143/74; PULSE 69; TEMP 98.4; O2SAT 98
--- NOTE | 2016-08-19 15:01 | PN ---
DATE: 08/19/2016 ROOM: 413. SUBJECTIVE: This is a 71-year-old female with recent uncontrolled type 2 insulin-requiring diabetes, now being followed closely for metabolic management. She presented here with acute coronary syndrom e and sudden onset of precordial chest pain and severe bouts of dizziness and lightheadedness and is currently undergoing cardiac workup as noted thereof. Her latest chemistry showed a BUN of 30, sodiu m 140, potassium 3.7, chloride 105, CO2 25, glucose 123 and creatinine 2.1. Her hemoglobin A1c is ac tually 9.4%, which is still elevated despite the aforementioned insulin drug combination therapy as n oted and given. So at this time, we will continue the same basal and bolus insulin regimen as ordered with Levemir gi gerard as 70 units subQ at bedtime daily as ordered. She actually [facility] [place] [facility] We will also continue her Humalog given as 14 units a.c. breakfast, 18 units a.c. lunch and 20 un its a.c. dinner as ordered. She also has a low-dose correction scale using Humalog insulin as given. She is scheduled for possible discharge today as noted. She will follow in my office for outpatien t diabetic management and followup. Vika iVllanueva MD cc: [id number] TT: 08/19/2016 15:01:44 Confirmation # [id number] Dictation # [id number] ria
[2016-08-19 15:40] LABS: TOTAL PROTEIN, SERUM 6.8 g/dL (6.1-8.1)
--- NOTE | 2016-08-19 16:32 | CP.PCM.PN ---
Subjective - Date & Time of Evaluation Date of Evaluation: 08/19/16 Time of Evaluation: 22:22 - Subjective Subjective: Above noted Objective - Vital Signs/Intake and Output Vital Signs (last 24 hours): Temp Pulse Resp BP Pulse Ox 98.4 F 69 18 143/74 98 08/19/16 12:20 08/19/16 12:20 08/19/16 12:20 08/19/16 12:20 08/19/16 12:20 - Medications Medications: Current Medications Amlodipine Besylate (Norvasc) 5 mg PO DAILY [facility] Last Admin: 08/19/16 08:41 Dose: 5 mg Aspirin (Ecotrin) 81 mg PO DAILY [facility] Last Admin: 08/19/16 08:38 Dose: 81 mg Cholecalciferol (Vitamin D) 1,000 iu PO DAILY [facility] Last Admin: 08/19/16 08:42 Dose: 1,000 iu Clopidogrel Bisulfate (Plavix) 75 mg PO DAILY [facility] Last Admin: 08/19/16 08:42 Dose: 75 mg Enoxaparin Sodium (Lovenox) 30 mg SC DAILY [facility] PRN Reason: Protocol Last Admin: 08/19/16 08:41 Dose: 30 mg Hydrochlorothiazide (Microzide) 12.5 mg PO DAILY [facility] Last Admin: 08/19/16 08:41 Dose: 12.5 mg Insulin Detemir (Levemir) 70 units SC HS [facility] Last Admin: 08/18/16 21:44 Dose: Not Given Insulin Human Lispro (Humalog) 14 units SC BRK [facility] Last Admin: 08/19/16 08:38 Dose: 14 units Insulin Human Lispro (Humalog) 18 units SC ACL [facility] Last Admin: 08/19/16 13:11 Dose: 18 units Insulin Human Lispro (Humalog) 20 units SC DIN [facility] Last Admin: 08/18/16 17:08 Dose: 20 units Insulin Human Lispro (Humalog) 0 units SC ACHS [facility] PRN Reason: Protocol Last Admin: 08/19/16 13:13 Dose: Not Given Lisinopril (Zestril) 20 mg PO DAILY [facility] Last Admin: 08/19/16 08:42 Dose: 20 mg Metoprolol Tartrate (Lopressor) 100 mg PO DAILY [facility] Last Admin: 08/19/16 08:40 Dose: 100 mg Nitroglycerin (Nitrostat Sl Tab) 0.4 mg SL Q5MIN PRN PRN Reason: chest pain Sitagliptin Phosphate (Januvia) 25 mg PO DAILY [facility] Last Admin: 08/19/16 08:40 Dose: 25 mg - Respiratory Exam Respiratory Exam: NORMAL BREATHING PATTERN - Cardiovascular Exam Cardiovascular Exam: REGULAR RHYTHM - GI/Abdominal Exam GI & Abdominal Exam: Normal Bowel Sounds Assessment and Plan - Assessment and Plan (Free Text) Assessment: Dizziness and right-sided chest pain CAD status post CABG EKG CE wnl Cardiology note appreciated DM CKD uncontrolled Endo Nephrology HTN uncontrolled Monitor closely
--- NOTE | 2016-08-20 10:12 | CARD ---
APPROVED REPORT EKG Measurement Heart [id number] <Conclusion> Normal sinus rhythm Minimal voltage criteria for LVH, may be normal variant T wave abnormality, consider anterolateral ischemia Abnormal ECG
[2016-08-20 10:36] LABS: CREATININE, RANDOM URINE 90 mg/dL (20-320)
[2016-08-21 07:44] LABS: BETA 1 GLOBULIN 0.4 g/dL (0.4-0.6); BETA 2 GLOBULIN 0.5 g/dL (0.2-0.5); GAMMA GLOBULIN 1.2 g/dL (0.8-1.7)
[2016-08-21 14:57] LABS: GAMMA GLOBULIN 14.9 Relative %
== END 2016-08-19 17:00 | disposition home or self-care (01) | DRG 313 ==
LOC: H.ER 09:15 → H.ERHOLD 11:36 → H.TEL 15:54 → OBSVTOIN 08-18 11:56 → H.TEL 08-18 18:09
PROVIDERS: ADMIT Family Medicine Geriatric Medicine; ATTEND Family Medicine Geriatric Medicine
DX: R07.89 Other chest pain (principal); I25.10 Atherosclerotic heart disease of native coronary artery without angina pectoris; N18.4 Chronic kidney disease, stage 4 (severe); E11.21 Type 2 diabetes mellitus with diabetic nephropathy; E11.42 Type 2 diabetes mellitus with diabetic polyneuropathy; J44.9 Chronic obstructive pulmonary disease, unspecified; E11.22 Type 2 diabetes mellitus with diabetic chronic kidney disease; E11.319 Type 2 diabetes mellitus with unspecified diabetic retinopathy without macular edema; E78.00 Pure hypercholesterolemia, unspecified; I12.9 Hypertensive chronic kidney disease with stage 1 through stage 4 chronic kidney disease, or unspecified chronic kidney disease; Z95.1 Presence of aortocoronary bypass graft; Z87.891 Personal history of nicotine dependence; J45.909 Unspecified asthma, uncomplicated; I73.9 Peripheral vascular disease, unspecified; Z95.5 Presence of coronary angioplasty implant and graft; E78.5 Hyperlipidemia, unspecified; Z90.710 Acquired absence of both cervix and uterus; E21.0 Primary hyperparathyroidism; E11.65 Type 2 diabetes mellitus with hyperglycemia; E66.9 Obesity, unspecified; Z79.4 Long term (current) use of insulin

== ENCOUNTER 2016-11-18 13:07 | Inpatient (IN) | payer MEDICARE, BC ==
[2016-11-18 13:07] VITALS: BMI 30.1
[2016-11-18 14:41] LABS: BASO # 0.1 K/uL (0.0-0.2); BASO % 0.6 % (0.0-2.0); EOS # 0.3 K/uL (0.0-0.7); EOS % 3.1 % (0.0-4.0); HEMATOCRIT 33.5 % (34.0-47.0); LYMPH # 2.5 K/uL (1.0-4.3); LYMPH % 23.1 % (20.0-40.0); MEAN CELL VOLUME 81.6 fl (81.0-99.0); MEAN CORPUSCULAR HEMOGLOBIN 27.2 pg (27.0-31.0); MEAN CORPUSCULAR HGB CONC 33.4 g/dL (33.0-37.0); MEAN PLATELET VOLUME 9.2 fl (7.2-11.7); MONO % 9.7 % (0.0-10.0); NEUT # 6.8 K/uL (1.8-7.0); NEUT % 63.5 % (50.0-75.0); NRBC % 0.1 % (0.0-0.0); RED CELL DISTRIBUTION WIDTH 13.8 % (11.5-14.5); WHITE BLOOD COUNT 10.8 K/uL (4.8-10.8)
[2016-11-18 14:58] LABS: BILIRUBIN,TOTAL 0.4 mg/dl (0.2-1.3); CALCIUM 10.7 mg/dL (8.4-10.2); POTASSIUM 3.9 MMOL/L (3.6-5.0); TOTAL PROTEIN 8.3 G/DL (6.3-8.2)
--- NOTE | 2016-11-18 15:10 | ED PDOC ---
HPI: General Adult Time Seen by Provider: 11/18/16 13:40 Chief Complaint (Nursing): Weakness/Neurological Deficit Chief Complaint (Provider): weakness History Per: Patient History/Exam Limitations: no limitations Additional Complaint(s): 71yo F in ED sent by Caleb FARLEY for eval of worsening HgAC-1, creatine unstable gait worsening SOB with recent hx of bypass surgery(2stent placement) and generalized weakness ongoing for 4 months. admits to cramping to LE b/l with occasional sharp shooting pain. denies CP, MENDOZA, dizziness Past Medical History Reviewed: Historical Data, Nursing Documentation, Vital Signs Vital Signs: Last Vital Signs Temp 98.0 F 11/18/16 13:15 Pulse 75 11/18/16 13:15 Resp 16 11/18/16 13:15 BP 152/87 H 11/18/16 13:15 Pulse Ox 100 11/18/16 15:29 - Medical History PMH: Asthma, CAD, COPD, Diabetes (type II), HTN, Hypercholesterolemia, Kidney Stones, Chronic Kidney Disease - Surgical History Surgical History: CABG (quadruple), Coronary Stent, Tonsillectomy Denies: Pacemaker - Family History Family History: States: Unknown Family Hx - Home Medications Home Medications: Ambulatory Orders Medication Instructions Recorded Clopidogrel [Plavix] 75 mg PO DAILY 01/15/16 Hydrochlorothiazide [Microzide] 12.5 mg PO DAILY 01/15/16 Insulin Glargine,Hum.rec.anlog 70 units SQ HS 01/15/16 [Toujeo Solostar] Metoprolol Tartrate [Lopressor] 100 mg PO DAILY 01/15/16 SITagliptin [Januvia] 25 mg PO DAILY 01/15/16 amLODIPine [Norvasc] 5 mg PO DAILY 01/15/16 Nitroglycerin [Nitrostat] 0.4 mg SL Q5MIN PRN 03/14/16 Albuterol Sulfate [Proair Hfa] 2 puff IH Q4H PRN 11/18/16 Aspirin [Ecotrin] 81 mg PO DAILY 11/18/16 Insulin Lispro [Humalog Kwikpen 14 unit SC BRK 11/18/16 U-200] Insulin Lispro [Humalog Kwikpen 18 unit SC ACL 11/18/16 U-200] Insulin Lispro [Humalog Kwikpen 24 unit SC DIN 11/18/16 U-200] LORazepam [Ativan] 0.5 mg PO BID PRN 11/18/16 Losartan [Cozaar] 50 mg PO DAILY 11/18/16 Travoprost [Travatan Z] 1 drop EACHEYE HS 11/18/16 - Allergies Allergies/Adverse Reactions: Allergies Allergy/AdvReac Type Severity Reaction Status Date / Time Penicillins Allergy RASH Verified 11/18/16 13:14 Review of Systems ROS Statement: Except As Marked, All Systems Reviewed And Found Negative Constitutional: Positive for: Weakness, Malaise Respiratory: Positive for: Shortness of Breath Musculoskeletal: Positive for: Leg Pain Neurological: Positive for: Weakness Physical Exam - Reviewed Nursing Documentation Reviewed: Yes Vital Signs Reviewed: Yes - Physical Exam Appears: Positive for: Well, Non-toxic, No Acute Distress Skin: Positive for: Normal Color, Warm, DRY Eye Exam: Positive for: EOMI, Normal appearance, PERRL ENT: Positive for: Normal ENT Inspection Cardiovascular/Chest: Positive for: Regular Rate, Rhythm Respiratory: Positive for: CNT, Normal Breath Sounds Gastrointestinal/Abdominal: Positive for: Normal Exam, Bowel Sounds, Soft. Negative for: Tenderness Back: Positive for: Normal Inspection Extremity: Negative for: Tenderness, Pedal Edema, Calf Tenderness, Swelling Neurologic/Psych: Positive for: Alert, Oriented - Laboratory Results Result Diagrams: 11/18/16 14:38 11/18/16 14:38 - ECG ECG Rhythm: Positive for: Normal QRS, Sinus Rhythm, ST/T Changes Interpretation Of Abn EKG: ST and T wave abd-inferiror and anterolateral ischemia-changes noted from most previous EKG. anibal FARLEY mad aware O2 Sat by Pulse Oximetry: 100 Medical Decision Making Medical Decision Making: Pt with known CKD hence elevated Hgba-1cCreatine and BUN-will consult Endocrinology and nephrology pt will be admitted to [facility] and received consult for EKG changes by Conor Mckeon MD Disposition - Clinical Impression Clinical Impression: Acute weakness, Elevated creatine kinase level - Patient ED Disposition Is Patient to be Admitted: Yes - Disposition Disposition Time: 16:09 Condition: STABLE Instructions: Weakness (ED) Forms: [facility] (Belarusian) - Pt Status Changed To: Hospital Disposition Of: Inpatient - Admit Certification Admit to Inpatient:: After my assessment, the patient will require hospitalization for at least two midnights. This is because of the severity of symptoms shown, intensity of services needed, and/or the medical risk in this patient being treated as an outpatient.
[2016-11-18 15:16] LABS: TROPONIN I 0.017 ng/mL (0.00-0.120)
--- NOTE | 2016-11-18 15:23 | RAD ---
HISTORY: cough COMPARISON: 08/17/2016 TECHNIQUE: Chest PA and lateral FINDINGS: LUNGS: No active pulmonary disease. PLEURA: No significant pleural effusion identified. No pneumothorax apparent. CARDIOVASCULAR: Normal heart size. Sternotomy wires. Tortuous descending thoracic aorta. OSSEOUS STRUCTURES: No significant abnormalities. VISUALIZED UPPER ABDOMEN: Normal. OTHER FINDINGS: None. IMPRESSION: No active disease.
[2016-11-18] MEDS ORDERED: Sodium Chloride 0.9% 1,000 ML IV STA (18:42)
[2016-11-18] MEDS ORDERED: Patient's Own Med (Albuterol Sulfate 2 PUFF) IH PRN (23:14)
[2016-11-18] MEDS ORDERED: Albuterol HFA 90 mcg/actuation (8 g) INH PRN (23:28)
[2016-11-18] MEDS ORDERED: Sodium Chloride 0.45% 1,000 ML IV SCH (23:30)
--- NOTE | 2016-11-19 01:39 | CON ---
ENDOCRINOLOGY CONSULT DATE: LOCATION: Room #417. HISTORY OF PRESENT ILLNESS: This is a 71-year-old female with known history of type 2 insulin-requiring diabetes, presenting here with precordial chest pain and associated generalized body weakness and is now being referred for diabetic evaluation and management. PAST MEDICAL HISTORY: As mentioned above, history of type 2 insulin-requiring diabetes, currently on a combination of Humalog given as 14 units a.c. breakfast, 18 units a.c. lunch and 24 units a.c. dinner as given with Toujeo given as 70 units subcu at bedtime daily. She is also taking Januvia 25 mg once daily as given. History of diabetic retinopathy, polyneuropathy and nephropathy with underlying chronic kidney disease. Also, history of coronary artery disease with significant vasculopathy and underlying coronary artery bypass graft surgery with subsequent stent placement as noted. History of peripheral arterial disease and vasculopathy. History of chronic obstructive lung disease and chronic asthma as noted. History of diffuse osteoarthritis with osteoporosis, history of nephrolithiasis with underlying primary hyperparathyroidism and hypercalcemia. FAMILY HISTORY: Positive for diabetes, hypertension. SOCIAL HISTORY: The patient has supportive family. No known substance use. REVIEW OF SYSTEMS: As mentioned above. Admits to generalized body weakness with easy fatigability and tiredness and suboptimal energy level. Also, admits to dizziness and lightheadedness, worse on the day of admission. No substernal chest pain. Also, admits to occasional bouts of precordial chest pain with no paroxysmal nocturnal dyspnea. Admits to occasional shortness of breath only on exertion. Her oral intake is variable with nausea, dyspepsia and vague upper abdominal pains. No recent alterations of bowel or urinary patterns. PHYSICAL EXAMINATION: GENERAL: Average-built female in no apparent distress with a blood pressure of 150/90, pulse of 100 beats per minute and regular, temperature 99, respirations 20, height is 5 feet 3 inches, weight is 170 pounds. HEENT: Head normocephalic. Eyes anicteric with pink conjunctivae. Funduscopy not possible at this time. Ears, nose and throat are otherwise normal. NECK: Supple. Thyroid gland is normal in size. No carotid bruits or cervical adenopathy. CARDIOPULMONARY: Some adynamic precordium. S1, S2 is rapid and regular. Lungs are clear to auscultation. ABDOMEN: Flat, soft with positive bowel sounds. EXTREMITIES: No peripheral edema. Pulses are +2 bilaterally. LABORATORY: Chemistry showed a BUN of 39, sodium 139, potassium 3.9, chloride 103, CO2 of 24, glucose 210, creatinine 2.5, calcium is 10.7, albumin is 4.2. The glucose levels have ranged from 251-256 mg/dl. ASSESSMENT: This is a 71-year-old female with uncontrolled and decompensated type 2 insulin-requiring diabetes with suboptimal metabolic control despite a basal and bolus insulin drug combination as noted and given. She also has diabetic microvascular complications of retinopathy, polyneuropathy and nephropathy with underlying chronic kidney disease. She also has diabetic macrovascular complications of coronary artery disease with a previous coronary bypass graft surgery and subsequent coronary stent placements. Moreover, she also has peripheral arterial disease and vasculopathy as noted. Plan of management as discussed with the patient and the staff. We will continue the current basal and bolus insulin regimen as ordered and we will titrate incrementally as indicated to optimize metabolic control. We will obtain serial chemistry and supplement accordingly as needed. We will also modify the coverage scale to obviate hypoglycemia and detailed orders have been given. We will obtain a parathyroid hormone intact level and also serum phosphorus and magnesium levels and also 25-hydroxy vitamin D that this time. We will obtain serial chemistries and supplement accordingly as stated. We will follow the patient. Vika Villanueva MD
[2016-11-19 06:34] LABS: BILIRUBIN,TOTAL 0.4 mg/dl (0.2-1.3); CALCIUM 9.9 mg/dL (8.4-10.2); POTASSIUM 3.9 MMOL/L (3.6-5.0); TOTAL PROTEIN 7.3 G/DL (6.3-8.2)
[2016-11-19 06:50] LABS: T4 7.31 ug/dl (5.5-11.0)
[2016-11-19 07:04] LABS: THYROID STIMULATING HORMONE 2.82 mIU/ML (0.46-4.68)
[2016-11-19 12:15] LABS: RBC URINE 2 /hpf (0-3); URINE BILIRUBIN NEGATIVE (NEGATIVE); URINE BLOOD NEGATIVE (NEGATIVE); URINE COLOR STRAW (YELLOW); URINE GLUCOSE (UA) >=500 mg/dL (Normal); URINE KETONE NEGATIVE (NEGATIVE); URINE LEUKOCYTE ESTERASE MOD Leu/uL (Negative); URINE PROTEIN 100 mg/dL (NEGATIVE); URINE UROBILINOGEN 0.2-1.0 mg/dL (0.2-1.0); WBC URINE 42 /hpf (0-5)
[2016-11-19 12:35] LABS: URINE BACTERIA OCC (<OCC)
[2016-11-19] MEDS: Insulin Lispro (humaLOG) 100 Units/ml Inj SC SCH ×2 (12:37→13:31)
--- NOTE | 2016-11-19 16:59 | PN ---
LOCATION: In [facility], bed 2. SUBJECTIVE: This is a 71-year-old female with recent uncontrolled type 2 insulin requiring diabetes now being followed closely for metabolic management. Her glycemic levels are fluctuating but improved, and the latest glucose levels have ranged from 170 to 184 today as noted. It was 256 to 318 last night as noted. LABORATORY DATA: The latest chemistry showed a BUN of 36, sodium 140, potassium 3.9, chloride 105, CO2 of 27, glucose 184 and creatinine 2.4. So, at this time, we will continue the same basal and bolus insulin regimen to allow for dose equilibration and keep her on the Humalog given at 14 units a.c. breakfast, 18 units a.c. lunch, and 24 units a.c. dinner. We will actually increase and modify the Levemir from 56 units to 60 units subcu at bedtime daily as given. We will continue the serial chemistries and supplement accordingly as needed. We will titrate incremental as indicated to optimize metabolic control. We will follow. Vika Villanueva MD
[2016-11-19] MEDS ORDERED: Insulin Lispro (humaLOG) 100 Units/ml Inj SC SCH (17:00)
--- NOTE | 2016-11-19 17:11 | CP.PCM.HP ---
History of Present Illness - History of Present Illness History of Present Illness: 71 yo with hx of CAD s/p CABG COPD admitted for fatigue SOB unsteady gait and uncontrolled DM with worsening creatinine Present on Admission - Present on Admission Any Indicators Present on Admission: No Past Patient History - Infectious Disease Hx of Infectious Diseases: None - Tetanus Immunizations Tetanus Immunization: Unknown - Past Medical History & Family History Past Medical History?: Yes - Past Social History Smoking Status: Former Smoker - CARDIAC Hx Cardiac Disorders: Yes - PULMONARY Hx Respiratory Disorders: Yes - NEUROLOGICAL Hx Neurological Disorder: No - HEENT Hx HEENT Problems: No - RENAL Hx Chronic Kidney Disease: Yes - ENDOCRINE/METABOLIC Hx Endocrine Disorders: Yes - HEMATOLOGICAL/ONCOLOGICAL Hx Blood Disorders: Yes Hx Blood Transfusions: No Hx Blood Transfusion Reaction: No Other/Comment: DVT at the age of 28yrs old. - INTEGUMENTARY Hx Dermatological Problems: No - MUSCULOSKELETAL/RHEUMATOLOGICAL Hx Musculoskeletal Disorders: Yes Hx Falls: Yes - GASTROINTESTINAL Hx Gastrointestinal Disorders: No - GENITOURINARY/GYNECOLOGICAL Hx Genitourinary Disorders: No - PSYCHIATRIC Hx Psychophysiologic Disorder: Yes Hx Substance Use: No - SURGICAL HISTORY Hx Coronary Artery Bypass Graft: Yes (quadruple) Hx Coronary Stent: Yes Hx Tonsillectomy: Yes - ANESTHESIA Hx Anesthesia: Yes Hx Anesthesia Reactions: No Hx Malignant Hyperthermia: No Meds Allergies/Adverse Reactions: Allergies Allergy/AdvReac Type Severity Reaction Status Date / Time Penicillins Allergy RASH Verified 11/18/16 13:14 Physical Exam - Respiratory Exam Respiratory Exam: NORMAL BREATHING PATTERN - Cardiovascular Exam Cardiovascular Exam: REGULAR RHYTHM - GI/Abdominal Exam GI & Abdominal Exam: Normal Bowel Sounds Results - Vital Signs Recent Vital Signs: Last Vital Signs Temp 98.6 F 11/19/16 16:41 Pulse 81 11/19/16 16:41 Resp 20 11/19/16 16:41 BP 147/81 11/19/16 16:41 Pulse Ox 96 11/19/16 16:41 - Labs Result Diagrams: 11/18/16 14:38 11/19/16 05:15 Labs: Laboratory Results - last 24 hr 11/18/16 11/18/16 11/19/16 18:34 21:10 05:15 Sodium 140 Potassium 3.9 Chloride 105 Carbon Dioxide 27 Anion Gap 12 BUN 36 H Creatinine 2.4 H Est GFR ( Amer) 24 Est GFR (Non-Af Amer) 20 POC Glucose (mg/dL) 256 H 318 H Random Glucose 184 H Hemoglobin A1c Calcium 9.9 Magnesium 2.0 Total Bilirubin 0.4 AST 33 ALT 25 Alkaline Phosphatase 81 Troponin I Total Protein 7.3 Albumin 3.7 Globulin 3.6 Albumin/Globulin Ratio 1.0 Triglycerides 547 H D Cholesterol 223 H LDL Cholesterol Direct 64 HDL Cholesterol 31 Thyroxine (T4) 7.31 TSH 3rd Generation 2.82 Urine Color Urine Clarity Urine pH Ur Specific [place] Urine Protein Urine Glucose (UA) Urine Ketones Urine Blood Urine Nitrate Urine Bilirubin Urine Urobilinogen Ur Leukocyte Esterase Urine RBC (Auto) Urine Microscopic WBC Ur Squamous Epith Cells Urine Bacteria Ur Random Creatinine Ur Random Sodium Ur Random Potassium 11/19/16 11/19/16 11/19/16 05:15 05:29 08:50 Sodium Potassium Chloride Carbon Dioxide Anion Gap BUN Creatinine Est GFR ( Amer) Est GFR (Non-Af Amer) POC Glucose (mg/dL) 170 H Random Glucose Hemoglobin A1c 9.6 H Calcium Magnesium Total Bilirubin AST ALT Alkaline Phosphatase Troponin I 0.0180 Total Protein Albumin Globulin Albumin/Globulin Ratio Triglycerides Cholesterol LDL Cholesterol Direct HDL Cholesterol Thyroxine (T4) TSH 3rd Generation Urine Color Urine Clarity Urine pH Ur Specific [place] Urine Protein Urine Glucose (UA) Urine Ketones Urine Blood Urine Nitrate Urine Bilirubin Urine Urobilinogen Ur Leukocyte Esterase Urine RBC (Auto) Urine Microscopic WBC Ur Squamous Epith Cells Urine Bacteria Ur Random Creatinine Ur Random Sodium Ur Random Potassium 11/19/16 11/19/16 11/19/16 12:06 12:06 12:06 Sodium Potassium Chloride Carbon Dioxide Anion Gap BUN Creatinine Est GFR ( Amer) Est GFR (Non-Af Amer) POC Glucose (mg/dL) Random Glucose Hemoglobin A1c Calcium Magnesium Total Bilirubin AST ALT Alkaline Phosphatase Troponin I Total Protein Albumin Globulin Albumin/Globulin Ratio Triglycerides Cholesterol LDL Cholesterol Direct HDL Cholesterol Thyroxine (T4) TSH 3rd Generation Urine Color Straw Urine Clarity Slighty-cloudy Urine pH 6.0 Ur Specific [place] 1.008 Urine Protein 100 Urine Glucose (UA) >=500 Urine Ketones Negative Urine Blood Negative Urine Nitrate Negative Urine Bilirubin Negative Urine Urobilinogen 0.2-1.0 Ur Leukocyte Esterase Mod Urine RBC (Auto) 2 Urine Microscopic WBC 42 H Ur Squamous Epith Cells 3 Urine Bacteria Occ H Ur Random Creatinine 59.3 Ur Random Sodium 93 Ur Random Potassium 24.1 Assessment & Plan - Assessment and Plan (Free Text) Assessment: SOB Fatigue hx of CAD s/p CABG COPD Cardiology Pulmonary Uncontrolled DM Endo CKD creat 2.5 Nephrology Triglyceride 567
--- NOTE | 2016-11-19 17:27 | US ---
PROCEDURE: Ultrasound of the Kidneys HISTORY: Elevated vated BUN/Creatinine COMPARISON: Comparison made with prior renal ultrasound 02/23/2016 TECHNIQUE: Sonogram of the kidneys. FINDINGS: RIGHT KIDNEY: Measures: Approximately 9.7 x 5.8 x 4.3 cm. Normal in size and contour. Increased echogenicity suggesting underlying medical renal disease. Clinical correlation recommended. No shadowing calculi, solid mass lesion or hydronephrosis visualized. LEFT KIDNEY: Measures: Approximately 10.0 x 5.7 x 5.7 cm. Normal in size, contour and echogenicity. No shadowing calculi or solid masses. No evidence of hydronephrosis. Small cyst lower pole left kidney measuring 1.4 x 1.2 x 1.5 cm. No solid mass lesion or hydronephrosis visualized. OTHER FINDINGS: None. IMPRESSION: Findings suggest underlying mild medical renal disease. No evidence of obstructive hydrocephalus. Small cyst lower pole left kidney.
--- NOTE | 2016-11-19 17:40 | CARD ---
APPROVED REPORT EXAM: Two-dimensional and M-mode echocardiogram with Doppler and color Doppler. Other Information Quality : GoodRhythm : NSR INDICATION Congestive Heart Failure Surgery/Intervention CABD DIMENSIONS IVSd1.70 (0.7-1.1cm)LVDd3.26 (3.9-5.9cm) LVOT Diameter1.82 (1.8-2.4cm)PWd1.39 (0.7-1.1cm) IVSs1.87 (0.8-1.2cm)LVDs1.65 (2.5-4.0cm) FS (%) 49.3 %PWs1.89 (0.8-1.2cm) LVEF (%)55.0 (>50%) M-Mode DIMENSIONS Left Atrium (MM)4.68 (2.5-4.0cm)IVSd1.06 (0.7-1.1cm) Aortic Root2.47 (2.2-3.7cm)LVDd5.06 (4.0-5.6cm) Aortic Cusp Exc.1.59 (1.5-2.0cm)PWd1.38 (0.7-1.1cm) IVSs2.18 cmFS (%) 54 % LVDs2.32 (2.0-3.8cm)PWs1.65 cm Mitral Valve MV E Pkpdbqab48.0cm/sMV DECEL [id number] A Cversbqv438.7cm/s MV [id number]/A ratio0.6MVA (PHT)2.26cm2 TDI Lateral E' Peak V7.50cm/sMedial E' Peak V4.40cm/sE/Lateral E'9.1 E/Medial E'15.5 Pulmonary Valve PV Peak Ngcrgbcb553.4cm/s Tricuspid Valve TR Peak Etnvhath885ch/sRAP [id number] Peak Gr.20mmHg [id number] LEFT VENTRICLE The left ventricle is normal size. There is moderate concentric left ventricular hypertrophy. The left ventricular ejection fraction is within the normal range. There is a flattened septum in some views Transmitral Doppler flow pattern is Grade I-abnormal relaxation pattern. RIGHT VENTRICLE The right ventricle is normal size. There is normal right ventricular wall thickness. The right ventricular systolic function is normal. ATRIA The left atrium is moderately dilated. The right atrium is borderline dilated. AORTIC VALVE The aortic valve is not well visualized. No aortic regurgitation is present. There is no aortic valvular stenosis. MITRAL VALVE The mitral valve is moderately thickened. There is no mitral valve stenosis. Mitral regurgitation is mild. TRICUSPID VALVE The tricuspid valve is normal in structure There is mild tricuspid regurgitation. PULMONIC VALVE The pulmonary valve is normal in structure and function. There is no pulmonic valvular regurgitation. GREAT VESSELS The aortic root is normal in size. The IVC was not visualized. PERICARDIAL EFFUSION There is a small loculated anterior pericardial effusion. <Conclusion> The left ventricle is normal size. There is moderate concentric left ventricular hypertrophy. The left ventricular ejection fraction is within the normal range. There is a flattened septum in some views Transmitral Doppler flow pattern is Grade I-abnormal relaxation pattern. Mitral regurgitation is mild. There is mild tricuspid regurgitation. There is a small loculated anterior pericardial effusion.
--- NOTE | 2016-11-19 19:41 | CP.PCM.CON ---
History of Present Illness - History of Present Illness History of Present Illness: pt is seen and examined, full consult is dictated #[id number] Past Patient History - Infectious Disease Hx of Infectious Diseases: None - Tetanus Immunizations Tetanus Immunization: Unknown - Past Medical History & Family History Past Medical History?: Yes - Past Social History Smoking Status: Former Smoker - CARDIAC Hx Cardiac Disorders: Yes - PULMONARY Hx Respiratory Disorders: Yes - NEUROLOGICAL Hx Neurological Disorder: No - HEENT Hx HEENT Problems: No - RENAL Hx Chronic Kidney Disease: Yes - ENDOCRINE/METABOLIC Hx Endocrine Disorders: Yes - HEMATOLOGICAL/ONCOLOGICAL Hx Blood Disorders: Yes Hx Blood Transfusions: No Hx Blood Transfusion Reaction: No Other/Comment: DVT at the age of 28yrs old. - INTEGUMENTARY Hx Dermatological Problems: No - MUSCULOSKELETAL/RHEUMATOLOGICAL Hx Musculoskeletal Disorders: Yes Hx Falls: Yes - GASTROINTESTINAL Hx Gastrointestinal Disorders: No - GENITOURINARY/GYNECOLOGICAL Hx Genitourinary Disorders: No - PSYCHIATRIC Hx Psychophysiologic Disorder: Yes Hx Substance Use: No - SURGICAL HISTORY Hx Coronary Artery Bypass Graft: Yes (quadruple) Hx Coronary Stent: Yes Hx Tonsillectomy: Yes - ANESTHESIA Hx Anesthesia: Yes Hx Anesthesia Reactions: No Hx Malignant Hyperthermia: No Meds Allergies/Adverse Reactions: Allergies Allergy/AdvReac Type Severity Reaction Status Date / Time Penicillins Allergy RASH Verified 11/18/16 13:14 - Medications Medications: Current Medications Albuterol (Ventolin Hfa 90 Mcg/Actuation (8 G)) 2 puff INH Q4H PRN PRN Reason: Shortness of Breath Amlodipine Besylate (Norvasc) 5 mg PO DAILY [facility] Last Admin: 11/19/16 09:28 Dose: 5 mg Aspirin (Ecotrin) 81 mg PO DAILY [facility] Last Admin: 11/19/16 09:28 Dose: 81 mg Clopidogrel Bisulfate (Plavix) 75 mg PO DAILY [facility] Last Admin: 11/19/16 09:29 Dose: 75 mg Gabapentin (Neurontin) 100 mg PO [facility] Heparin Sodium (Porcine) (Heparin) 5,000 units SC Q12 SHIRA PRN Reason: Protocol Hydrochlorothiazide (Microzide) 12.5 mg PO DAILY [facility] Last Admin: 11/19/16 09:28 Dose: 12.5 mg Sodium Chloride (Sodium Chloride 0.45%) 1,000 mls @ 40 mls/hr IV .Q24H [facility] Stop: 11/19/16 23:24 Last Admin: 11/18/16 23:30 Dose: 40 mls/hr Insulin Detemir (Levemir) 60 units SC HS SHIRA Insulin Human Lispro (Humalog) 14 units SC BRK [facility] Last Admin: 11/19/16 12:37 Dose: Not Given Insulin Human Lispro (Humalog) 18 units SC ACL [facility] Last Admin: 11/19/16 13:31 Dose: 18 units Insulin Human Lispro (Humalog) 24 units SC DIN [facility] Last Admin: 11/19/16 18:17 Dose: 24 units Latanoprost (Xalatan Opht) 1 drop OU HS [facility] Metoprolol Tartrate (Lopressor) 100 mg PO DAILY [facility] Last Admin: 11/19/16 13:31 Dose: 100 mg Sitagliptin Phosphate (Januvia) 25 mg PO DAILY [facility] Last Admin: 11/19/16 09:28 Dose: 25 mg Zolpidem Tartrate (Ambien) 5 mg PO HS [facility] Results - Vital Signs Recent Vital Signs: Last Vital Signs Temp 98.6 F 11/19/16 16:41 Pulse 81 11/19/16 16:41 Resp 20 11/19/16 16:41 BP 147/81 11/19/16 16:41 Pulse Ox 96 11/19/16 16:41 - Labs Result Diagrams: 11/18/16 14:38 11/19/16 05:15 Labs: Laboratory Results - last 24 hr 11/18/16 11/18/16 11/19/16 18:34 21:10 05:15 Sodium 140 Potassium 3.9 Chloride 105 Carbon Dioxide 27 Anion Gap 12 BUN 36 H Creatinine 2.4 H Est GFR ( Amer) 24 Est GFR (Non-Af Amer) 20 POC Glucose (mg/dL) 256 H 318 H Random Glucose 184 H Hemoglobin A1c Calcium 9.9 Magnesium 2.0 Total Bilirubin 0.4 AST 33 ALT 25 Alkaline Phosphatase 81 Troponin I Total Protein 7.3 Albumin 3.7 Globulin 3.6 Albumin/Globulin Ratio 1.0 Triglycerides 547 H D Cholesterol 223 H LDL Cholesterol Direct 64 HDL Cholesterol 31 Thyroxine (T4) 7.31 TSH 3rd Generation 2.82 Urine Color Urine Clarity Urine pH Ur Specific [place] Urine Protein Urine Glucose (UA) Urine Ketones Urine Blood Urine Nitrate Urine Bilirubin Urine Urobilinogen Ur Leukocyte Esterase Urine RBC (Auto) Urine Microscopic WBC Ur Squamous Epith Cells Urine Bacteria Ur Random Creatinine Ur Random Sodium Ur Random Potassium 11/19/16 11/19/16 11/19/16 05:15 05:29 08:50 Sodium Potassium Chloride Carbon Dioxide Anion Gap BUN Creatinine Est GFR ( Amer) Est GFR (Non-Af Amer) POC Glucose (mg/dL) 170 H Random Glucose Hemoglobin A1c 9.6 H Calcium Magnesium Total Bilirubin AST ALT Alkaline Phosphatase Troponin I 0.0180 Total Protein Albumin Globulin Albumin/Globulin Ratio Triglycerides Cholesterol LDL Cholesterol Direct HDL Cholesterol Thyroxine (T4) TSH 3rd Generation Urine Color Urine Clarity Urine pH Ur Specific [place] Urine Protein Urine Glucose (UA) Urine Ketones Urine Blood Urine Nitrate Urine Bilirubin Urine Urobilinogen Ur Leukocyte Esterase Urine RBC (Auto) Urine Microscopic WBC Ur Squamous Epith Cells Urine Bacteria Ur Random Creatinine Ur Random Sodium Ur Random Potassium 11/19/16 11/19/16 11/19/16 11:35 12:06 12:06 Sodium Potassium Chloride Carbon Dioxide Anion Gap BUN Creatinine Est GFR ( Amer) Est GFR (Non-Af Amer) POC Glucose (mg/dL) 244 H Random Glucose Hemoglobin A1c Calcium Magnesium Total Bilirubin AST ALT Alkaline Phosphatase Troponin I Total Protein Albumin Globulin Albumin/Globulin Ratio Triglycerides Cholesterol LDL Cholesterol Direct HDL Cholesterol Thyroxine (T4) TSH 3rd Generation Urine Color Urine Clarity Urine pH Ur Specific [place] Urine Protein Urine Glucose (UA) Urine Ketones Urine Blood Urine Nitrate Urine Bilirubin Urine Urobilinogen Ur Leukocyte Esterase Urine RBC (Auto) Urine Microscopic WBC Ur Squamous Epith Cells Urine Bacteria Ur Random Creatinine 59.3 Ur Random Sodium 93 Ur Random Potassium 24.1 11/19/16 11/19/16 12:06 17:58 Sodium Potassium Chloride Carbon Dioxide Anion Gap BUN Creatinine Est GFR ( Amer) Est GFR (Non-Af Amer) POC Glucose (mg/dL) 280 H Random Glucose Hemoglobin A1c Calcium Magnesium Total Bilirubin AST ALT Alkaline Phosphatase Troponin I Total Protein Albumin Globulin Albumin/Globulin Ratio Triglycerides Cholesterol LDL Cholesterol Direct HDL Cholesterol Thyroxine (T4) TSH 3rd Generation Urine Color Straw Urine Clarity Slighty-cloudy Urine pH 6.0 Ur Specific [place] 1.008 Urine Protein 100 Urine Glucose (UA) >=500 Urine Ketones Negative Urine Blood Negative Urine Nitrate Negative Urine Bilirubin Negative Urine Urobilinogen 0.2-1.0 Ur Leukocyte Esterase Mod Urine RBC (Auto) 2 Urine Microscopic WBC 42 H Ur Squamous Epith Cells 3 Urine Bacteria Occ H Ur Random Creatinine Ur Random Sodium Ur Random Potassium
[2016-11-19] MEDS: Latanoprost 0.005% Opht SOUTION OU SCH (21:46)
[2016-11-19] MEDS: Insulin Detemir 100 Units/ml Inj SC SCH (21:47)
[2016-11-19] MEDS ORDERED: Patient's Own Med (Travoprost [Travatan Z] 1 DROP) EACHEYE SCH (22:00)
[2016-11-19] MEDS ORDERED: Insulin Detemir 100 Units/ml Inj SC SCH (22:00)
--- NOTE | 2016-11-19 23:09 | CARD ---
APPROVED REPORT EKG Measurement Heart [id number] <Conclusion> Normal sinus rhythm ST & T wave abnormality, consider inferior ischemia ST & T wave abnormality, consider anterolateral ischemia Abnormal ECG
--- NOTE | 2016-11-20 00:03 | CON ---
DATE: CHIEF COMPLAINT: Generalized weakness. HISTORY OF PRESENT ILLNESS: This is a 71-year-old woman who I know from my office with past medical history of type II diabetes mellitus, hypertension, dyslipidemia, coronary artery disease status post CABG, who comes in for shortness of breath and generalized weakness. I was called to evaluate. She recently had an EMG done in my office, which showed evidence of neuropathy from underlying diabetes. She also has left leg pain for which she was supposed to have an ankle brachial index to see it was peripheral vascular disease in nature. Currently, she was generally deconditioned; otherwise no focal weakness at this time. She does have paresthesias in the arms and legs, which is from underlying diabetic peripheral neuropathy. Endocrine consultation has been placed and is being followed and her diabetic medications have been adjusted. She has diabetic microvascular complications of retinopathy, polyneuropathy, and nephropathy with underlying chronic kidney disease. She is on aspirin and Plavix for stroke prevention. PAST MEDICAL HISTORY: History of hypertension, diabetes, dyslipidemia. FAMILY HISTORY: Noncontributory. SOCIAL HISTORY: No illicit drug use, smoking, or EtOH abuse. REVIEW OF SYSTEMS: A 14-point review of system is negative except in the HPI. ALLERGIES: PENICILLIN. MEDICATIONS: Reviewed by nurse reconciliation sheet. PHYSICAL EXAMINATION GENERAL: The patient is sitting up in bed, no acute distress. VITAL SIGNS: Temperature 98.6, pulse rate of 81, blood pressure 147/81, respirations rate of 20, oxygen saturation 92% by room air. HEENT: Head is atraumatic, normocephalic. PERRLA. Extraocular muscles intact. NECK: Supple. No JVD. No adenopathy noted. LUNGS: Clear to auscultation. No adventitious sounds. HEART: S1 and S2, normal rate and rhythm. No murmur, rubs, or gallops. ABDOMEN: Soft, nontender, nondistended. Bowel sounds present. EXTREMITIES: No clubbing. No cyanosis. Peripheral pulses 2+ felt bilaterally. NEUROLOGIC: The patient is alert and oriented to person, place, month, and year. Speech is fluent without any errors. Cranial nerves II through XII are intact. Motor exam: Moves all extremities equally. No pronator seen. Sensory exam: Decrease to light touch and pinprick up to the calves bilaterally. Decreased vibration in the toes. DTRs are 2+ throughout, 1 at the knees, and absent at the ankles. Coordination: [id number] is intact. Gait is deferred for now. LABORATORY DATA: A1c is 9.6. Sodium 140, potassium 3.9, chloride 105, carbon dioxide 27, BUN of 36, creatinine 2.4 and random glucose 184. ASSESSMENT AND PLAN: This is a 71-year-old woman history of uncontrolled diabetes type II with suboptimal metabolic control, coronary artery disease status post coronary artery bypass graft, hypertension, dyslipidemia, who with a recent EMG showing evidence of peripheral neuropathy with underlying diabetes who comes in for shortness of breath and generalized weakness. Her generalized weakness is most likely underlying deconditioned state, superimposed on underlying diabetic neuropathy. Her left leg is painful, seems more possible peripheral arterial disease. Will need ankle brachial index. At this time, recommend: 1. Gabapentin 300 mg p.o. daily at bedtime for neuropathic pain, in addition alpha-lipoic acid mg p.o. t.i.d. for neuropathic pain refill. 2. Diabetic education given. Needs to bring her blood sugar between 140 to 180 and given that her A1c is 9.6 indicating poorly controlled diabetes, needs to follow up with surgeon/president recommendation in terms of diabetic medication adjustment. 3. Recommend physical therapy for underlying deconditioned state. 4. Continue with aspirin 81 mg and Plavix 75 mg for stroke prevention. At this time, continue current present medical management. We will follow up as an outpatient. Javier Zapien MD
[2016-11-20] MEDS: Insulin Lispro (humaLOG) 100 Units/ml Inj SC SCH ×3 (09:15→18:09)
--- NOTE | 2016-11-20 09:43 | CON ---
RENAL CONSULTATION DATE: REQUESTED BY: Jesús West MD REASON FOR CONSULTATION: Chronic kidney disease for further evaluation. HISTORY OF PRESENT ILLNESS: Mrs. Moreno is a 71 years old elderly obese, female with a past medical history significant for hypertension for about 13-14 years, diabetes about 13-14 years, glaucoma, coronary artery disease, status post CABG in 2011 and subsequently the patient underwent stents placement in 2 coronaries in 2013 and also from chronic kidney disease with proteinuria who was admitted with the chief complaint of dyspnea on exertion, shortness of breath, and feeling weak and tired. As per the patient, she used to walk about 10-12 blocks and now she cannot walk even in the house, she feels weak and tired and exhausted when she walks about going from one room to the other room and even she tried to pickup her grandchild from the floor. The patient denies any chest pain. Denies any palpitations. Denies any nausea, vomiting, or diarrhea. Denies any abdominal pain. No headache. No dizziness. No swelling of the legs. No urinary complaints. PAST MEDICAL HISTORY: Significant for hypertension for 13-14 years, diabetes 13-14 years, glaucoma, coronary artery disease, chronic kidney disease, and questionable diabetic neuropathy. PAST SURGICAL HISTORY: Status post CABG and glaucoma surgery. ALLERGIES: ALLERGIC TO PENICILLIN. SOCIAL HISTORY: No smoking. No alcohol. No drugs. PERSONAL HISTORY: She is a and she has 5 children. CURRENT MEDICATIONS: Include as follows; Ambien 5 mg at bedtime, aspirin 81 mg daily, subcutaneous heparin 5000 q.12 hours, Humalog 14 units subcutaneously at breakfast and 8 units subcutaneously a.c. and Humalog 24 units subcutaneously at dinner and Januvia 25 mg p.o. daily and Levemir 60 units subcutaneously at bedtime, metoprolol 100 mg p.o. daily, hydrochlorothiazide 12.5 mg daily, gabapentin 100 mg p.o. at bedtime, amlodipine 5 mg daily, Plavix 75 mg daily, IV fluids half normal saline at 40 mL per hour, albuterol inhaler 2 puffs q.4 hours, and Xalatan eyedrops. REVIEW OF SYSTEMS: Significant for dyspnea on exertion, shortness of breath, feeling weak and tired with minimal exertion. FAMILY HISTORY: Not significant. PHYSICAL EXAMINATION: VITAL SIGNS: As follows; blood pressure 163/85, pulse 75, respirations 20, temperature 98.5, and saturation 97%. Height is 5 feet 3 inches and weight 170 pounds. GENERAL: Mrs. Moreno is a 71 years old elderly female, moderately built, moderately nourished, and not in acute distress. HEENT: Pupils are normal and reactive to light and accommodation. Conjunctivae pink. Sclerae anicteric. Tongue is moist. Trachea is midline. No thyroid enlargement. LUNGS: Symmetric on both sides. Bilateral breath sounds present. Clear on auscultation. No crackles. CARDIOVASCULAR: [place] at the fifth intercostal space, midclavicular line, S1 and S2 audible. No murmur. No gallop. The patient has a midsternal scar present. ABDOMEN: Normal in appearance. Soft and tympanic. No guarding. No rigidity. No hepatosplenomegaly. CENTRAL NERVOUS SYSTEM: The patient is alert, awake, and oriented x3. Nonfocal on examination. Cranial nerves II through XII grossly intact. Sensory and motor systems is within normal limits. EXTREMITIES: No cyanosis. No clubbing. No edema. LABORATORY DATA: Her current laboratory data include as follows as of 11/19/2016; sodium 140, potassium 3.9, chloride 105, CO2 of 27, BUN 36, creatinine 2.4, glucose 184, calcium 9.9, hemoglobin A1C 9.6, and magnesium 2. Total bilirubin 0.4, AST 33, ALT 25, and alkaline phosphatase is 81. Troponin is 0.018. Total protein 7.3, albumin is 3.7, triglycerides 547, cholesterol is 223, LDL is 64, HDL is 31, thyroxine is 7.31, and TSH is 2.82. Urinalysis is straw color, slightly cloudy, pH of 6, specific gravity 1.008, protein 100, glucose more than 500, ketones negative, blood negative, nitrites negative, urobilinogen is 0.2 to 1.0, leukocyte esterase is moderate, RBC 2, WBC 42, and bacteria occasional. Urine creatinine 59.3, urine sodium 93, and urine potassium 24.1. Ultrasounds of the kidneys on the right kidney is 9.7 x 5.8 x 4.3 and left kidney 10 x 5.7 x 5.7 cm. The patient has a small cyst lower pole of the left kidney measuring 1.4 x 1.2 x 1.5 cm. IMPRESSION: Findings suggest underlying mild medical renal disease, no evidence of obstructive hydronephrosis, small cyst in the left lower pole; other laboratory data from previous admission immunologic PAPO screening was negative as of 08/18/2016 and complement level of C3 is 148 and C4 is 44.60, CH50 is 60. Other laboratory data as of 08/18/2016; hepatitis B surface antigen is negative and surface antibody is negative and C. diff toxin was negative and hepatitis C antibody was negative as of 06/16/2015. In summary, Mrs. Moreno is a 71 year old elderly female with history of longstanding diabetes, hypertension, coronary artery disease, uncontrolled diabetes, proteinuria, chronic kidney diseases with the baseline creatinine about 1.6 on 02/18/2012 and baseline creatinine as of 03/14/2016 of 2.5. 1. Chronic kidney disease, stage IV most likely secondary to multifactorial diabetic nephropathy and hypertensive nephrosclerosis, doubt chronic glomerulonephritis as her serology workup was within normal limits. 2. Coronary artery disease, rule out stenosis of the coronary stent. 3. Hypertension. Blood pressure is stable, continue her current medications. 4. Uncontrolled diabetes. The patient needs better control of the sugar and need to keep hemoglobin A1C below 7 and follow with the cardiology for further management. The patient may need stress test and dobutamine stress test for evaluation of ongoing ischemia. We will follow with you. Thank you for allowing me to participate in your patient's care and also we will check PTH intact level in a.m. Saida Reid MD
--- NOTE | 2016-11-20 10:51 | CP.PCM.CON ---
History of Present Illness - History of Present Illness History of Present Illness: This 71 year old female is known to me from the outpatient setting because of a history of Bronchial Asthma. She has multiple comorbid conditions including CAD , CKD, DM and hypertension. She is also a former cigarette smoker with moderate alcohol intake who discontinued both of these habits in 2002. She presented to the emergency room with progressively worsening DRIVER which now limits her to walking from one room to the other. She denies chest pain, cough, sputum or hemoptysis. She does sleep sitting up, but this is a longstanding habit of hers. There has been no apparent fever or chills recently. A chest x-ray done in the emergency room failed to reveal any acute findings. When I last saw her she was given LABA/ICS inhaler, but she is presently using a rescue inhaler as needed and an inhaled steroid. Review of Systems - Review of Systems All systems: reviewed and no additional remarkable complaints except - Cardiovascular Cardiovascular: As Per HPI - Respiratory Respiratory: As Per HPI - Musculoskeletal Musculoskeletal: Radiating Pain into Limb - Neurological Neurological: Abnormal Gait Past Patient History - Infectious Disease Hx of Infectious Diseases: None - Tetanus Immunizations Tetanus Immunization: Unknown - Past Medical History & Family History Past Medical History?: Yes Pertinent Family History: Cancer, heart disease, diabetes. - Past Social History Smoking Status: Former Smoker Chewing Tobacco Use: No Cigar Use: No Alcohol: None (former moderate to heavy alcohol ingestion.) - CARDIAC Hx Hypercholesterolemia: Yes Hx Hypertension: Yes - PULMONARY Hx Asthma: Yes - NEUROLOGICAL Other/Comment: Neuropathy - HEENT Hx HEENT Problems: No - RENAL Hx Kidney Stones: Yes (x2) - ENDOCRINE/METABOLIC Hx Diabetes Mellitus Type 2: Yes (on insulin) Other/Comment: hyperparathyroid - HEMATOLOGICAL/ONCOLOGICAL Hx Blood Transfusions: No Other/Comment: DVT at the age of 28yrs old. - INTEGUMENTARY Hx Dermatological Problems: No - MUSCULOSKELETAL/RHEUMATOLOGICAL Hx Falls: Yes Hx Osteoporosis: Yes Hx Unsteady Gait: Yes - GASTROINTESTINAL Hx Gastroesophageal Reflux: Yes HX Swallowing Problems: Yes - GENITOURINARY/GYNECOLOGICAL Hx Genitourinary Disorders: No - PSYCHIATRIC Hx Substance Use: No - SURGICAL HISTORY Hx Coronary Artery Bypass Graft: Yes (quadruple) Hx Coronary Stent: Yes Hx Hysterectomy: Yes Hx Parathyroidectomy: Yes Hx Tonsillectomy: Yes - ANESTHESIA Hx Anesthesia: Yes Hx Anesthesia Reactions: No Hx Malignant Hyperthermia: No Meds Allergies/Adverse Reactions: Allergies Allergy/AdvReac Type Severity Reaction Status Date / Time Penicillins Allergy RASH Verified 11/18/16 13:14 - Medications Medications: Current Medications Albuterol (Ventolin Hfa 90 Mcg/Actuation (8 G)) 2 puff INH Q4H PRN PRN Reason: Shortness of Breath Amlodipine Besylate (Norvasc) 5 mg PO DAILY [facility] Last Admin: 11/20/16 09:18 Dose: 5 mg Aspirin (Ecotrin) 81 mg PO DAILY [facility] Last Admin: 11/20/16 09:14 Dose: 81 mg Clopidogrel Bisulfate (Plavix) 75 mg PO DAILY [facility] Last Admin: 11/20/16 09:18 Dose: 75 mg Gabapentin (Neurontin) 100 mg PO HS [facility] Last Admin: 11/19/16 21:47 Dose: 100 mg Heparin Sodium (Porcine) (Heparin) 5,000 units SC Q12 [facility] PRN Reason: Protocol Last Admin: 11/20/16 09:14 Dose: 5,000 units Hydrochlorothiazide (Microzide) 12.5 mg PO DAILY [facility] Last Admin: 11/20/16 09:22 Dose: 12.5 mg Insulin Detemir (Levemir) 60 units SC HS [facility] Last Admin: 11/19/16 21:47 Dose: 60 units Insulin Human Lispro (Humalog) 14 units SC BRK [facility] Last Admin: 11/20/16 09:15 Dose: 14 u Insulin Human Lispro (Humalog) 18 units SC ACL [facility] Last Admin: 11/19/16 13:31 Dose: 18 units Insulin Human Lispro (Humalog) 24 units SC DIN [facility] Last Admin: 11/19/16 18:17 Dose: 24 units Latanoprost (Xalatan Opht) 1 drop OU HS [facility] Last Admin: 11/19/16 21:46 Dose: 1 drop Metoprolol Tartrate (Lopressor) 100 mg PO DAILY [facility] Last Admin: 11/20/16 09:16 Dose: 100 mg Sitagliptin Phosphate (Januvia) 25 mg PO DAILY [facility] Last Admin: 11/20/16 09:16 Dose: 25 mg Zolpidem Tartrate (Ambien) 5 mg PO HS [facility] Last Admin: 11/19/16 21:43 Dose: Not Given Physical Exam - Additional Findings Additional findings: Well nourished, well developed, in no acute distress at rest. No palpable lymphadenopathy. Neck is supple and trachea midline. No visible JVD or carotid bruit. Conjunctivae pink, no scleral icterus. Nasal passages patent bilaterally. No dullness on chest percussion, equal expansion. Healed scar from prior CABG. Breath sounds are well heard bilaterally, no audible rales or wheezes. Rare lower lobe sonorous rhonchi. No bronchial breath sounds or egophony. Heart sounds are distant, regular rhythm, SOHAN at base radiating to carotids. Abdomen is soft and non-tender with normal bowel sounds. No dependant edema of LE's, no calf tenderness, no cyanosis. Results - Vital Signs Recent Vital Signs: Last Vital Signs Temp 98 F 11/20/16 08:00 Pulse 80 11/20/16 09:18 Resp 18 11/20/16 08:00 BP 156/81 H 11/20/16 09:18 Pulse Ox 99 11/20/16 08:00 - Labs Result Diagrams: 11/18/16 14:38 11/19/16 05:15 Labs: Laboratory Results - last 24 hr 11/19/16 11/19/16 11/19/16 05:15 11:35 12:06 POC Glucose (mg/dL) 244 H Hemoglobin A1c 9.6 H Urine Color Urine Clarity Urine pH Ur Specific [place] Urine Protein Urine Glucose (UA) Urine Ketones Urine Blood Urine Nitrate Urine Bilirubin Urine Urobilinogen Ur Leukocyte Esterase Urine RBC (Auto) Urine Microscopic WBC Ur Squamous Epith Cells Urine Bacteria Ur Random Creatinine 59.3 Ur Random Sodium Ur Random Potassium 11/19/16 11/19/16 11/19/16 12:06 12:06 17:58 POC Glucose (mg/dL) 280 H Hemoglobin A1c Urine Color Straw Urine Clarity Slighty-cloudy Urine pH 6.0 Ur Specific [place] 1.008 Urine Protein 100 Urine Glucose (UA) >=500 Urine Ketones Negative Urine Blood Negative Urine Nitrate Negative Urine Bilirubin Negative Urine Urobilinogen 0.2-1.0 Ur Leukocyte Esterase Mod Urine RBC (Auto) 2 Urine Microscopic WBC 42 H Ur Squamous Epith Cells 3 Urine Bacteria Occ H Ur Random Creatinine Ur Random Sodium 93 Ur Random Potassium 24.1 11/19/16 11/20/16 20:42 05:20 POC Glucose (mg/dL) 309 H 160 H Hemoglobin A1c Urine Color Urine Clarity Urine pH Ur Specific [place] Urine Protein Urine Glucose (UA) Urine Ketones Urine Blood Urine Nitrate Urine Bilirubin Urine Urobilinogen Ur Leukocyte Esterase Urine RBC (Auto) Urine Microscopic WBC Ur Squamous Epith Cells Urine Bacteria Ur Random Creatinine Ur Random Sodium Ur Random Potassium Assessment & Plan (1) Dyspnea on exertion Status: Acute Priority: High (2) Asthma Status: Chronic Priority: High (3) CAD (coronary artery disease) Status: Chronic Priority: High (4) COPD (chronic obstructive pulmonary disease) Status: Chronic Priority: High (5) Diabetes mellitus Status: Chronic Priority: High (6) CKD (chronic kidney disease) Status: Chronic Priority: High - Assessment and Plan (Free Text) Assessment: 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 This seems fairly well controlled on the current regimen. Symptoms seem to suggest cardiovascular etiology or pulmonary hypertension? Will discuss further with cardiology. Pulmonary function testing when stable. Possibly VQ scan. - Date & Time Date: 11/20/16 Time: 11:34
--- NOTE | 2016-11-20 11:23 | CP.PCM.CON ---
History of Present Illness - History of Present Illness History of Present Illness: This 71-year- old -[place] female, with a long history of poorly controlled diabetes mellitus, hypertension, dyslipidemia and coronary artery disease which has required coronary bypass graft surgery more than 40 years back followed by coronary stenting in September of last year, was hospitalized with complaints of severe effort intolerance with significant dyspnea on exertion. She denied any orthopnea. She has had atypical chest pain for which she has been hospitalized in the past. Now she also reports a profound sense of fatigue. She denies any pedal edema. Neurological workup has recently revealed on EMG testing that she has diabetic peripheral neuropathy. Physical examination shows an elderly -[place] female who is anxious and being hospitalized. Beats comfortably at rest with a respiratory rate of 16- 18 breaths per minute. Has a heart rate of 72 bpm regular and a blood pressure of 136/70 mmHg. Her jugular venous pressure was not elevated. There was no edema over lower extremities. Her pedal pulses were feebly felt. There were no carotid bruits. Her next images were warm and the nailbeds are pink. There was no central or peripheral cyanosis. The apex was in the fifth space. The first and second heart sounds were normal. There was no murmur or gallop there were no rales. The expiration was prolonged. Abdomen was soft liver and spleen are not palpable. Her electro-cardiogram showed sinus rhythm with widespread ST-T abnormalities which were similar to her electrocardiogram going back to 2014. No Q waves were detected on the electric cardiogram. Her echocardiogram done yesterday shows evidence of left ventricular hypertrophy with preserved left ventricular systolic function. Her pulmonary artery systolic pressure was 30 mmHg. There was left ventricular diastolic dysfunction. Her lab data was noted. Her hemoglobin was 11.2 g and her WBC count and platelet counts are normal. She had stage III chronic kidney disease with elevated BUN/creatinine. Her GFR was 20 mL per minute. Her hemoglobin A1c was 9.6% and her triglycerides were significantly elevated as a consequence of poorly controlled diabetes. Her LDL level was satisfactory. TSH was normal. Impression: Significant effort intolerance possibly secondary to respiratory insufficiency. There is no overt evidence of congestive cardiac failure and distention the patient has had her last coronary stenting in September of last year. I have requested a nuclear stress test to evaluate for recurrent coronary artery disease. Past Patient History - Infectious Disease Hx of Infectious Diseases: None - Tetanus Immunizations Tetanus Immunization: Unknown - Past Medical History & Family History Past Medical History?: Yes - Past Social History Smoking Status: Former Smoker Chewing Tobacco Use: No Cigar Use: No Alcohol: None (former moderate to heavy alcohol ingestion.) - CARDIAC Hx Hypercholesterolemia: Yes Hx Hypertension: Yes - PULMONARY Hx Asthma: Yes - NEUROLOGICAL Other/Comment: Neuropathy - HEENT Hx HEENT Problems: No - RENAL Hx Kidney Stones: Yes (x2) - ENDOCRINE/METABOLIC Hx Diabetes Mellitus Type 2: Yes (on insulin) Other/Comment: hyperparathyroid - HEMATOLOGICAL/ONCOLOGICAL Hx Blood Transfusions: No Other/Comment: DVT at the age of 28yrs old. - INTEGUMENTARY Hx Dermatological Problems: No - MUSCULOSKELETAL/RHEUMATOLOGICAL Hx Falls: Yes Hx Osteoporosis: Yes Hx Unsteady Gait: Yes - GASTROINTESTINAL Hx Gastroesophageal Reflux: Yes - GENITOURINARY/GYNECOLOGICAL Hx Genitourinary Disorders: No - PSYCHIATRIC Hx Substance Use: No - SURGICAL HISTORY Hx Coronary Artery Bypass Graft: Yes (quadruple) Hx Coronary Stent: Yes Hx Hysterectomy: Yes Hx Parathyroidectomy: Yes Hx Tonsillectomy: Yes - ANESTHESIA Hx Anesthesia: Yes Hx Anesthesia Reactions: No Hx Malignant Hyperthermia: No Meds Allergies/Adverse Reactions: Allergies Allergy/AdvReac Type Severity Reaction Status Date / Time Penicillins Allergy RASH Verified 11/18/16 13:14 - Medications Medications: Current Medications Albuterol (Ventolin Hfa 90 Mcg/Actuation (8 G)) 2 puff INH Q4H PRN PRN Reason: Shortness of Breath Amlodipine Besylate (Norvasc) [address] [facility] Last Admin: 11/20/16 09:18 Dose: 5 mg Aspirin (Ecotrin) [address] [facility] Last Admin: 11/20/16 09:14 Dose: 81 mg Clopidogrel Bisulfate (Plavix) [address] [facility] Last Admin: 11/20/16 09:18 Dose: 75 mg Gabapentin (Neurontin) [address] [facility] Last Admin: 11/19/16 21:47 Dose: 100 mg Heparin Sodium (Porcine) (Heparin) 5,000 units SC Q12 [facility] PRN Reason: Protocol Last Admin: 11/20/16 09:14 Dose: 5,000 units Hydrochlorothiazide (Microzide) 12.[address] [facility] Last Admin: 11/20/16 09:22 Dose: 12.5 mg Insulin Detemir (Levemir) [address] [facility] Last Admin: 11/19/16 21:47 Dose: 60 units Insulin Human Lispro (Humalog) [address] [facility] Last Admin: 11/20/16 09:15 Dose: 14 u Insulin Human Lispro (Humalog) [address] [facility] Last Admin: 11/19/16 13:31 Dose: 18 units Insulin Human Lispro (Humalog) [address] [facility] Last Admin: 11/19/16 18:17 Dose: 24 units Latanoprost (Xalatan Opht) [address] [facility] Last Admin: 11/19/16 21:46 Dose: 1 drop Metoprolol Tartrate (Lopressor) [address] [facility] Last Admin: 11/20/16 09:16 Dose: 100 mg Sitagliptin Phosphate (Januvia) [address] [facility] Last Admin: 11/20/16 09:16 Dose: 25 mg Zolpidem Tartrate (Ambien) 5 mg PO [facility] Last Admin: 11/19/16 21:43 Dose: Not Given Results - Vital Signs Recent Vital Signs: Last Vital Signs Temp 98 F 11/20/16 08:00 Pulse 80 11/20/16 09:18 Resp 18 11/20/16 08:00 BP 156/81 H 11/20/16 09:18 Pulse Ox 99 11/20/16 08:00 - Labs Result Diagrams: 11/18/16 14:38 11/19/16 05:15 Labs: Laboratory Results - last 24 hr 11/19/16 11/19/16 11/19/16 05:15 11:35 12:06 POC Glucose (mg/dL) 244 H Hemoglobin A1c 9.6 H Urine Color Urine Clarity Urine pH Ur Specific [place] Urine Protein Urine Glucose (UA) Urine Ketones Urine Blood Urine Nitrate Urine Bilirubin Urine Urobilinogen Ur Leukocyte Esterase Urine RBC (Auto) Urine Microscopic WBC Ur Squamous Epith Cells Urine Bacteria Ur Random Creatinine 59.3 Ur Random Sodium Ur Random Potassium 11/19/16 11/19/16 11/19/16 12:06 12:06 17:58 POC Glucose (mg/dL) 280 H Hemoglobin A1c Urine Color Straw Urine Clarity Slighty-cloudy Urine pH 6.0 Ur Specific [place] 1.008 Urine Protein 100 Urine Glucose (UA) >=500 Urine Ketones Negative Urine Blood Negative Urine Nitrate Negative Urine Bilirubin Negative Urine Urobilinogen 0.2-1.0 Ur Leukocyte Esterase Mod Urine RBC (Auto) 2 Urine Microscopic WBC 42 H Ur Squamous Epith Cells 3 Urine Bacteria Occ H Ur Random Creatinine Ur Random Sodium 93 Ur Random Potassium 24.1 11/19/16 11/20/16 20:42 05:20 POC Glucose (mg/dL) 309 H 160 H Hemoglobin A1c Urine Color Urine Clarity Urine pH Ur Specific [place] Urine Protein Urine Glucose (UA) Urine Ketones Urine Blood Urine Nitrate Urine Bilirubin Urine Urobilinogen Ur Leukocyte Esterase Urine RBC (Auto) Urine Microscopic WBC Ur Squamous Epith Cells Urine Bacteria Ur Random Creatinine Ur Random Sodium Ur Random Potassium
[2016-11-20] MEDS: Albuterol 0.083% Inhal Sol (2.5 mg/3 mL) UD INH SCH ×3 (12:05→20:35)
--- NOTE | 2016-11-20 16:12 | CT ---
PROCEDURE: CT Chest without contrast HISTORY: Dyspnea COMPARISON: None. TECHNIQUE: Contiguous axial images were obtained through the chest without intravenous contrast enhancement. Sagittal and coronal reconstructions were performed. Radiation dose (DLP): 524.41 mGy-cm. This CT exam was performed using one or more of the following dose reduction techniques: Automated exposure control, adjustment of the mA and/or kV according to patient size, and/or use of iterative reconstruction technique. FINDINGS: LUNGS: The lungs are well inflated. There are scattered tiny calcified nodules in both lungs and faint 2-3 mm scattered noncalcified nodules in both lungs. The larger nodules measure: Right lung: There is a 3 mm nodule in the posterior segment of the right upper lobe (series 3, image 27), 5 mm nodule in the right upper lobe (series 3, image 31), a 3 mm nodule in the right lower lobe more inferiorly (series 3, image 37), 3 mm nodule in the peripheral right lower lobe (series 3, image 39), a 4 mm nodule in the lateral segment of the right middle lobe (series+ 3, image 48). Left lung: There is a 5 mm nodule in the left upper lobe (series 3, image 29), 4 mm nodule in the posterior basilar segment of the left lower lobe (series 3, image 85) a 3 mm calcified nodule in the peripheral posterior segment of the left upper lobe. There is no focal consolidation, ground-glass attenuation, architectural distortion or bronchiectasis. There is mild scattered centrilobular emphysema in the right lower lobe. There are no endobronchial lesions. There is mild subsegmental atelectasis in the lung bases. MEDIASTINUM: The aorta is normal in caliber. The heart is normal in size. There is no pericardial effusion. Status post CABG. There are advanced atherosclerotic calcifications in the coronary arteries. There is mild thymic tissue in the anterior mediastinum PLEURA: No pleural fluid. No pneumothorax. BONES: No fracture. No destructive lesion. UPPER ABDOMEN: Grossly unremarkable. OTHER FINDINGS: None. IMPRESSION: 1. Scattered noncalcified nodules in both lungs, the largest in the right upper lobe measures 5 mm and left upper lobe measures 5 mm. These are likely post inflammatory in etiology given presence of scattered small calcified granulomas however follow-up CT scan 6-12 months interval is recommended to assess stability of this probably benign nodules. 2. No evidence of interstitial lung disease.
--- NOTE | 2016-11-20 16:18 | PN ---
LOCATION: Room 417. SUBJECTIVE: This is a 71-year-old female with recent uncontrolled type 2 insulin requiring diabetes now being followed closely for metabolic management. She developed overnight hyperglycemic accelerations as noted thereof and the glucose values have ranged from 160 to 309 and 343 mg/dL. LABORATORY DATA: The latest chemistry showed a BUN of 36, sodium 140, potassium 3.9, chloride 105, CO2 27, glucose 184, and creatinine 2.4. Her hemoglobin A1c is 9.6% as noted. PLAN: So, at this time, we will modify her basal and bolus insulin regimen and increase the Humalog to 20 units subcu a.c. breakfast daily as ordered. We will also increase the lunchtime Humalog to 22 units subcu as ordered. Moreover, we will increase her dinnertime dosing to Humalog given as 28 units subcu before dinner to start tonight as ordered. We will continue the overnight Levemir given as basal insulin at 60 units subcu at bedtime daily as ordered. We will obtain serial chemistries and supplement accordingly as needed. We will titrate incrementally as indicated to optimize metabolic control. We will follow and advise accordingly. Vika Villanueva MD
[2016-11-20] MEDS: Budesonide 0.25 mg/2 ml Inhal Susp UD INH SCH (20:35)
--- NOTE | 2016-11-20 20:50 | CP.PCM.PN ---
Subjective - Date & Time of Evaluation Date of Evaluation: 11/20/16 Time of Evaluation: 22:22 - Subjective Subjective: Above noted Stress Thalium in AM Objective - Vital Signs/Intake and Output Vital Signs (last 24 hours): Temp Pulse Resp BP Pulse Ox 98.8 F 79 20 158/81 H 98 11/20/16 20:24 11/20/16 20:24 11/20/16 20:24 11/20/16 20:24 11/20/16 20:24 Intake and Output: 11/20/16 11/21/16 18:59 06:59 Intake Total 950 Balance 950 - Medications Medications: Current Medications Albuterol (Ventolin Hfa 90 Mcg/Actuation (8 G)) 2 puff INH Q4H PRN PRN Reason: Shortness of Breath Albuterol Sulfate (Albuterol 0.083% Inhal Sadaf (2.5 Mg/3 Ml) Ud) 2.5 mg INH RQID [facility] Amlodipine Besylate (Norvasc) 5 mg PO DAILY [facility] Last Admin: 11/20/16 09:18 Dose: 5 mg Aspirin (Ecotrin) 81 mg PO DAILY [facility] Last Admin: 11/20/16 09:14 Dose: 81 mg Budesonide (Pulmicort Respules) 0.25 mg INH [facility] Clopidogrel Bisulfate (Plavix) 75 mg PO DAILY [facility] Last Admin: 11/20/16 09:18 Dose: 75 mg Gabapentin (Neurontin) 100 mg PO HS [facility] Last Admin: 11/19/16 21:47 Dose: 100 mg Heparin Sodium (Porcine) (Heparin) 5,000 units SC Q12 [facility] PRN Reason: Protocol Last Admin: 11/20/16 09:14 Dose: 5,000 units Hydrochlorothiazide (Microzide) 12.5 mg PO DAILY [facility] Last Admin: 11/20/16 09:22 Dose: 12.5 mg Insulin Detemir (Levemir) 60 units SC HS [facility] Last Admin: 11/19/16 21:47 Dose: 60 units Insulin Human Lispro (Humalog) 20 units SC BRK [facility] Insulin Human Lispro (Humalog) 22 units SC ACL [facility] Insulin Human Lispro (Humalog) 28 units SC DIN [facility] Last Admin: 11/20/16 18:09 Dose: 28 u Latanoprost (Xalatan Opht) 1 drop OU HS [facility] Last Admin: 11/19/16 21:46 Dose: 1 drop Metoprolol Tartrate (Lopressor) 100 mg PO DAILY [facility] Last Admin: 11/20/16 09:16 Dose: 100 mg Sitagliptin Phosphate (Januvia) 25 mg PO DAILY [facility] Last Admin: 11/20/16 09:16 Dose: 25 mg Zolpidem Tartrate (Ambien) 5 mg PO [facility] Last Admin: 11/19/16 21:43 Dose: Not Given - Labs Labs: 11/19/16 05:15 - Respiratory Exam Respiratory Exam: Wheezes, NORMAL BREATHING PATTERN - Cardiovascular Exam Cardiovascular Exam: REGULAR RHYTHM - GI/Abdominal Exam GI & Abdominal Exam: Normal Bowel Sounds Assessment and Plan - Assessment and Plan (Free Text) Assessment: SOB Fatigue Hx of CAD s/p CABG COPD Cardiology Pulmonary Stress Thalium in AM Uncontrolled DM Endo CKD creat 2.5 Nephrology Periphereal Neuropathy Neurology Arterial dopplers Triglyceride 567
[2016-11-20] MEDS: Insulin Detemir 100 Units/ml Inj SC SCH (22:17)
[2016-11-20] MEDS: Latanoprost 0.005% Opht SOUTION OU SCH (22:17)
[2016-11-21 06:38] LABS: HEMATOCRIT 33.5 % (34.0-47.0); MEAN CELL VOLUME 81.8 fl (81.0-99.0); MEAN CORPUSCULAR HEMOGLOBIN 26.6 pg (27.0-31.0); MEAN CORPUSCULAR HGB CONC 32.5 g/dL (33.0-37.0); RED CELL DISTRIBUTION WIDTH 13.9 % (11.5-14.5); WHITE BLOOD COUNT 8.1 K/uL (4.8-10.8)
[2016-11-21 06:57] LABS: CALCIUM 10.1 mg/dL (8.4-10.2); POTASSIUM 3.7 MMOL/L (3.6-5.0)
[2016-11-21] MEDS: Albuterol 0.083% Inhal Sol (2.5 mg/3 mL) UD INH SCH ×4 (07:37→20:05)
[2016-11-21] MEDS: Budesonide 0.25 mg/2 ml Inhal Susp UD INH SCH ×2 (07:38→20:05)
[2016-11-21] MEDS: Insulin Lispro (humaLOG) 100 Units/ml Inj SC SCH ×2 (08:24→17:21)
--- NOTE | 2016-11-21 09:47 | CP.PCM.PN ---
Subjective - Date & Time of Evaluation Date of Evaluation: 11/21/16 Time of Evaluation: 09:45 - Subjective Subjective: Presently out of room for Stress Myoview scan. CT chest with HD done yesterday; multiple small nodules in both lungs, benign in appearance, will need followup scanning. Will get PFT later today. Objective - Vital Signs/Intake and Output Vital Signs (last 24 hours): Temp Pulse Resp BP Pulse Ox 97.9 F 92 H 18 162/90 H 95 11/21/16 08:00 11/21/16 09:00 11/21/16 08:00 11/21/16 08:21 11/21/16 08:00 Intake and Output: 11/20/16 11/21/16 23:59 11:59 Intake Total 950 Balance 950 - Medications Medications: Current Medications Albuterol (Ventolin Hfa 90 Mcg/Actuation (8 G)) 2 puff INH Q4H PRN PRN Reason: Shortness of Breath Albuterol Sulfate (Albuterol 0.083% Inhal Sadaf (2.5 Mg/3 Ml) Ud) 2.5 mg INH RQID [facility] Last Admin: 11/21/16 07:37 Dose: 2.5 mg Amlodipine Besylate (Norvasc) 5 mg PO DAILY [facility] Last Admin: 11/20/16 09:18 Dose: 5 mg Aspirin (Ecotrin) 81 mg PO DAILY [facility] Last Admin: 11/20/16 09:14 Dose: 81 mg Budesonide (Pulmicort Respules) 0.25 mg INH RBID [facility] Last Admin: 11/21/16 07:38 Dose: 0.25 mg Clopidogrel Bisulfate (Plavix) 75 mg PO DAILY [facility] Last Admin: 11/20/16 09:18 Dose: 75 mg Gabapentin (Neurontin) 100 mg PO HS [facility] Last Admin: 11/20/16 22:16 Dose: 100 mg Heparin Sodium (Porcine) (Heparin) 5,000 units SC Q12 [facility] PRN Reason: Protocol Last Admin: 11/20/16 22:16 Dose: 5,000 units Hydrochlorothiazide (Microzide) 12.5 mg PO DAILY [facility] Last Admin: 11/21/16 08:22 Dose: 12.5 mg Insulin Detemir (Levemir) 60 units SC [facility] Last Admin: 11/20/16 22:17 Dose: 60 units Insulin Human Lispro (Humalog) 20 units SC BRK [facility] Last Admin: 11/21/16 08:24 Dose: Not Given Insulin Human Lispro (Humalog) 22 units SC ACL [facility] Insulin Human Lispro (Humalog) 28 units SC DIN [facility] Last Admin: 11/20/16 18:09 Dose: 28 u Latanoprost (Xalatan Opht) 1 drop OU HS [facility] Last Admin: 11/20/16 22:17 Dose: 1 drop Metoprolol Tartrate (Lopressor) 100 mg PO DAILY [facility] Last Admin: 11/21/16 08:21 Dose: 100 mg Sitagliptin Phosphate (Januvia) 25 mg PO DAILY [facility] Last Admin: 11/20/16 09:16 Dose: 25 mg Zolpidem Tartrate (Ambien) 5 mg PO [facility] Last Admin: 11/20/16 22:24 Dose: 5 mg - Labs Labs: 11/21/16 05:30 11/21/16 05:30 Assessment and Plan (1) Dyspnea on exertion Status: Acute (2) Asthma Status: Chronic (3) CAD (coronary artery disease) Status: Chronic (4) COPD (chronic obstructive pulmonary disease) Status: Chronic (5) Diabetes mellitus Status: Chronic (6) CKD (chronic kidney disease) Status: Chronic
[2016-11-21] MEDS ORDERED: Aminophylline 25 mg/ml Inj ONE (10:04)
--- NOTE | 2016-11-21 10:51 | CP.PCM.PN ---
Subjective - Date & Time of Evaluation Date of Evaluation: 11/21/16 Time of Evaluation: 22:22 - Subjective Subjective: Stress Thalium today Pulmonary note appreciated Objective - Vital Signs/Intake and Output Vital Signs (last 24 hours): Temp Pulse Resp BP Pulse Ox 97.9 F 92 H 18 162/90 H 95 11/21/16 08:00 11/21/16 09:00 11/21/16 08:00 11/21/16 08:21 11/21/16 08:00 - Medications Medications: Current Medications Albuterol (Ventolin Hfa 90 Mcg/Actuation (8 G)) 2 puff INH Q4H PRN PRN Reason: Shortness of Breath Albuterol Sulfate (Albuterol 0.083% Inhal Sadaf (2.5 Mg/3 Ml) Ud) 2.5 mg INH RQID [facility] Last Admin: 11/21/16 07:37 Dose: 2.5 mg Amlodipine Besylate (Norvasc) 5 mg PO DAILY [facility] Last Admin: 11/20/16 09:18 Dose: 5 mg Aspirin (Ecotrin) 81 mg PO DAILY [facility] Last Admin: 11/20/16 09:14 Dose: 81 mg Budesonide (Pulmicort Respules) 0.25 mg INH RBID [facility] Last Admin: 11/21/16 07:38 Dose: 0.25 mg Clopidogrel Bisulfate (Plavix) 75 mg PO DAILY [facility] Last Admin: 11/20/16 09:18 Dose: 75 mg Gabapentin (Neurontin) 100 mg PO HS [facility] Last Admin: 11/20/16 22:16 Dose: 100 mg Heparin Sodium (Porcine) (Heparin) 5,000 units SC Q12 [facility] PRN Reason: Protocol Last Admin: 11/20/16 22:16 Dose: 5,000 units Hydrochlorothiazide (Microzide) 12.5 mg PO DAILY [facility] Last Admin: 11/21/16 08:22 Dose: 12.5 mg Insulin Detemir (Levemir) 60 units SC HS [facility] Last Admin: 11/20/16 22:17 Dose: 60 units Insulin Human Lispro (Humalog) 20 units SC BRK [facility] Last Admin: 11/21/16 08:24 Dose: Not Given Insulin Human Lispro (Humalog) 22 units SC ACL [facility] Insulin Human Lispro (Humalog) 28 units SC DIN [facility] Last Admin: 11/20/16 18:09 Dose: 28 u Latanoprost (Xalatan Opht) 1 drop OU HS [facility] Last Admin: 11/20/16 22:17 Dose: 1 drop Metoprolol Tartrate (Lopressor) 100 mg PO DAILY [facility] Last Admin: 11/21/16 08:21 Dose: 100 mg Sitagliptin Phosphate (Januvia) 25 mg PO DAILY [facility] Last Admin: 11/20/16 09:16 Dose: 25 mg Zolpidem Tartrate (Ambien) 5 mg PO HS [facility] Last Admin: 11/20/16 22:24 Dose: 5 mg - Labs Labs: 11/21/16 05:30 11/21/16 05:30 - Respiratory Exam Respiratory Exam: NORMAL BREATHING PATTERN - Cardiovascular Exam Cardiovascular Exam: REGULAR RHYTHM - GI/Abdominal Exam GI & Abdominal Exam: Normal Bowel Sounds Assessment and Plan - Assessment and Plan (Free Text) Assessment: SOB Fatigue Hx of CAD s/p CABG COPD Cardiology Pulmonary Stress Thalium CT chest small nodules Uncontrolled DM Endo CKD creat 2.5 Nephrology Periphereal Neuropathy Neurology Arterial dopplers Triglyceride 567
[2016-11-21] MEDS ORDERED: Insulin Lispro (humaLOG) 100 Units/ml Inj SC SCH (11:30)
--- NOTE | 2016-11-21 14:32 | ENDO ---
PROCEDURE DATE: 11/21/2016 LOCATION: Room 417. SUBJECTIVE: This is a 71-year-old female with recent uncontrolled type II insulin requiring diabetes now being followed through supra-metabolic management. She continues to have hyperglycemic fluctuations despite a hefty insulin dose regimen as given. Her Lasix glucose values have ranged from 152-173 and 245 mg/dl. Her latest chemistry showed a BUN of 37, sodium 138, potassium 3.7, chloride 103, CO2 23, glucose 200, creatinine 2.5. So at this time, we will continue the same basal and bolus insulin regimen which was modified for today and we will give Humalog given as 20 units a.c. breakfast, 22 units a.c. lunch, and 28 units a.c. dinner as ordered. We will also continue the Levemir given as 60 units subcu at bedtime daily as given. We will titrate incremental as indicated to optimize metabolic control. We will also continue the low dose correction scale using Humalog insulin as given. We will follow or advice accordingly. Vika Villanueva MD
--- NOTE | 2016-11-21 18:29 | CP.PCM.PN ---
Subjective - Date & Time of Evaluation Date of Evaluation: 11/21/16 Time of Evaluation: 18:29 - Subjective Subjective: pt is seen and examined,follow up consult is dictated #[id number] Objective - Vital Signs/Intake and Output Vital Signs (last 24 hours): Temp Pulse Resp BP Pulse Ox 98.8 F 78 20 149/76 97 11/21/16 15:47 11/21/16 15:47 11/21/16 15:47 11/21/16 15:47 11/21/16 15:47 Intake and Output: 11/21/16 11/21/16 06:59 18:59 Intake Total 2250 Output Total 850 Balance 1400 - Medications Medications: Current Medications Albuterol (Ventolin Hfa 90 Mcg/Actuation (8 G)) 2 puff INH Q4H PRN PRN Reason: Shortness of Breath Albuterol Sulfate (Albuterol 0.083% Inhal Sadaf (2.5 Mg/3 Ml) Ud) 2.5 mg INH RQID [facility] Last Admin: 11/21/16 15:39 Dose: 2.5 mg Amlodipine Besylate (Norvasc) 5 mg PO DAILY [facility] Last Admin: 11/21/16 11:26 Dose: 5 mg Aspirin (Ecotrin) 81 mg PO DAILY [facility] Last Admin: 11/21/16 11:34 Dose: 81 mg Budesonide (Pulmicort Respules) 0.25 mg INH RBID [facility] Last Admin: 11/21/16 07:38 Dose: 0.25 mg Clopidogrel Bisulfate (Plavix) 75 mg PO DAILY [facility] Last Admin: 11/21/16 11:26 Dose: 75 mg Gabapentin (Neurontin) 100 mg PO HS [facility] Last Admin: 11/20/16 22:16 Dose: 100 mg Heparin Sodium (Porcine) (Heparin) 5,000 units SC Q12 [facility] PRN Reason: Protocol Last Admin: 11/21/16 11:25 Dose: 5,000 units Hydrochlorothiazide (Microzide) 12.5 mg PO DAILY [facility] Last Admin: 11/21/16 08:22 Dose: 12.5 mg Insulin Detemir (Levemir) 60 units SC HS [facility] Last Admin: 11/20/16 22:17 Dose: 60 units Insulin Human Lispro (Humalog) 20 units SC BRK [facility] Last Admin: 11/21/16 08:24 Dose: Not Given Insulin Human Lispro (Humalog) 22 units SC ACL [facility] Last Admin: 11/21/16 12:47 Dose: 22 u Insulin Human Lispro (Humalog) 28 units SC DIN [facility] Last Admin: 11/21/16 17:21 Dose: 28 u Latanoprost (Xalatan Opht) 1 drop OU HS [facility] Last Admin: 11/20/16 22:17 Dose: 1 drop Metoprolol Tartrate (Lopressor) 100 mg PO DAILY [facility] Last Admin: 11/21/16 08:21 Dose: 100 mg Sitagliptin Phosphate (Januvia) 25 mg PO DAILY [facility] Last Admin: 11/21/16 09:00 Dose: 25 mg Zolpidem Tartrate (Ambien) 5 mg PO HS [facility] Last Admin: 11/20/16 22:24 Dose: 5 mg - Labs Labs: 11/21/16 05:30 11/21/16 05:30
[2016-11-21] MEDS: Latanoprost 0.005% Opht SOUTION OU SCH (21:36)
[2016-11-21] MEDS: Insulin Detemir 100 Units/ml Inj SC SCH (21:39)
[2016-11-22 04:54] VITALS: O2SAT 98
[2016-11-22 07:58] VITALS: RESP 18
--- NOTE | 2016-11-22 08:23 | PN ---
DATE: FOLLOWUP RENAL CONSULTATION Patient is located in telemetry room 417, bed 2, requested by Dr. Jesús West. REASON FOR FOLLOWUP: Chronic kidney disease, proteinuria for further evaluation. SUBJECTIVE: Mrs. Moreno is 71 years old very pleasant elderly obese, female with past medical history significant for longstanding hypertension, diabetes, chronic kidney disease, proteinuria, coronary artery disease, status post CABG and stents was admitted with chief complaints of dyspnea on exertion and shortness of breath. Patient claims that she cannot walk even from one room to another room in her house and also feels short of breath when she try to pick her granddaughter from the floor also, which is gradually deteriorating for the last 7 to 8 months. Denies any chest pain or palpitations. Denies any nausea, vomiting or diarrhea. Denies any abdominal pain. Denies any swelling of the legs. Patient does complains of occasional leg pains. No edema of the legs and no urinary symptoms. PHYSICAL EXAMINATION: VITAL SIGNS: As follows; blood pressure 149/76, pulse 78, respirations 20, temperature 98.8, and saturation 97%. Height is 5 feet 3 inches and weight is 170 pounds. GENERAL: Mrs. Moreno is 71 years old elderly female, moderately built, moderately nourished, and not in distress. HEENT: Pupils are normal and reactive to light and accommodation. Conjunctivae pink. Sclerae anicteric. Tongue is moist. Trachea is midline. LUNGS: Symmetric on both sides. Bilateral breath sounds present. Clear on auscultation. CARDIOVASCULAR: [place] at the fifth intercostal space, midclavicular line, S1 and S2 audible. The patient has a midsternal scar present from the previous CABG. No murmur. No gallop. ABDOMEN: Normal in appearance. Soft and tympanic. No guarding. No rigidity. No hepatosplenomegaly. 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 Nonfocal on examination. Cranial nerves II through XII grossly intact. Sensory and motor system is within normal limits. EXTREMITIES: No cyanosis. No clubbing. No edema. Dorsalis pedis pulses are present and easily palpable pulses. CURRENT MEDICATIONS: Include as follows; albuterol inhaler and Ambien 5 mg at bedtime, aspirin 81 mg daily, subcu heparin 5000 q.12 hours, lispro 20 units subcu at the breakfast, 22 units subcu a.c.l. and 28 units subcu dinner, Januvia 25 mg p.o. daily, Levemir 60 units subcu at bedtime, metoprolol 100 mg p.o. daily, Macrobid 12.5 mg daily, gabapentin 100 mg p.o. at bedtime, amlodipine 5 mg p.o. daily, Plavix 75 mg daily, Pulmicort 0.25 mg inhaler b.i.d., albuterol inhaler 2 puffs q. 4 hours, and Xalatan eye drops one drop at bedtime. LABORATORY DATA: Include as follows as of 11/21/2016; WBC 8.1, hemoglobin 10.9, hematocrit is 33.5 and platelets 265. Sodium 138, potassium 3.7, chloride 103, CO2 of 23, BUN 37, creatinine 2.5, glucose 200 and calcium 10.1. Myocardial perfusion scan report is pending as of 11/20/2016. In summary, Mrs. Moreno is a 71 years old elderly female with history of longstanding hypertension, diabetes, coronary artery disease, CABG and status post stent, was admitted with dyspnea on exertion and shortness of breath and cannot walk more than 15 to 20 feet in the house and feels tired and exhausted and also shortness of breath, dyspnea on exertion with increased BUN and creatinine. 1. Renal failure. Chronic kidney disease IV most likely secondary to diabetic nephropathy and hypertensive nephrosclerosis, doubt chronic glomerulonephritis. 2. Hypertension, blood pressure is stable, try to keep blood pressure below 130/70. 3. Uncontrolled diabetes. 4. Coronary artery disease rule out stenosis of the stent. Follow with cardiology for further management. Thank you for allowing me to participate in our patient's care. Saida Reid MD
[2016-11-22] MEDS: Albuterol 0.083% Inhal Sol (2.5 mg/3 mL) UD INH SCH ×3 (08:24→15:57)
[2016-11-22] MEDS: Budesonide 0.25 mg/2 ml Inhal Susp UD INH SCH (08:24)
[2016-11-22] MEDS: Insulin Lispro (humaLOG) 100 Units/ml Inj SC SCH (08:37)
[2016-11-22 08:46] VITALS: PULSE 79
--- NOTE | 2016-11-22 11:13 | CP.PCM.PN ---
Subjective - Date & Time of Evaluation Date of Evaluation: 11/22/16 Time of Evaluation: 10:00 - Subjective Subjective: Pt ambulating in corridor free of dyspnoea or chest pain Vital signs are stable No volume over load Reviewed myocardial perf imges from stress test of yesterday No evidence of ischemic myocardium Pt may go home on present Rx Objective - Vital Signs/Intake and Output Vital Signs (last 24 hours): Temp Pulse Resp BP Pulse Ox 98.2 F 79 18 106/71 98 11/22/16 07:58 11/22/16 08:44 11/22/16 07:58 11/22/16 08:44 11/22/16 07:58 - Medications Medications: Current Medications Acetaminophen (Tylenol 325mg Tab) 650 mg PO Q6 PRN PRN Reason: Pain, moderate (4-7) Albuterol (Ventolin Hfa 90 Mcg/Actuation (8 G)) 2 puff INH Q4H PRN PRN Reason: Shortness of Breath Albuterol Sulfate (Albuterol 0.083% Inhal Sadaf (2.5 Mg/3 Ml) Ud) 2.5 mg INH RQID [facility] Last Admin: 11/22/16 08:24 Dose: Not Given Amlodipine Besylate (Norvasc) 5 mg PO DAILY [facility] Last Admin: 11/22/16 08:44 Dose: 5 mg Aspirin (Ecotrin) 81 mg PO DAILY [facility] Last Admin: 11/22/16 08:34 Dose: 81 mg Budesonide (Pulmicort Respules) 0.25 mg INH RBID [facility] Last Admin: 11/22/16 08:24 Dose: Not Given Clopidogrel Bisulfate (Plavix) 75 mg PO DAILY [facility] Last Admin: 11/22/16 08:45 Dose: 75 mg Gabapentin (Neurontin) 100 mg PO HS [facility] Last Admin: 11/21/16 21:36 Dose: 100 mg Heparin Sodium (Porcine) (Heparin) 5,000 units SC Q12 [facility] PRN Reason: Protocol Last Admin: 11/22/16 08:35 Dose: 5,000 units Hydrochlorothiazide (Microzide) 12.5 mg PO DAILY [facility] Last Admin: 11/22/16 08:43 Dose: 12.5 mg Insulin Detemir (Levemir) 70 units SC HS [facility] Insulin Human Lispro (Humalog) 24 units SC ACL [facility] Insulin Human Lispro (Humalog) 30 units SC DIN [facility] Insulin Human Lispro (Humalog) 24 units SC BRK [facility] Latanoprost (Xalatan Opht) 1 drop OU [facility] Last Admin: 11/21/16 21:36 Dose: 1 drop Metoprolol Tartrate (Lopressor) 100 mg PO DAILY [facility] Last Admin: 11/22/16 08:43 Dose: 100 mg Sitagliptin Phosphate (Januvia) 25 mg PO DAILY [facility] Last Admin: 11/22/16 08:42 Dose: 25 mg Zolpidem Tartrate (Ambien) 5 mg PO [facility] Last Admin: 11/21/16 21:38 Dose: 5 mg - Labs Labs: 11/21/16 05:30 11/21/16 05:30
--- NOTE | 2016-11-22 11:15 | PN ---
DATE: SUBJECTIVE: The patient seen and examined. The patient is seen by Dr. Jesús West while he is awake. The patient remains in progressive care unit on telemetry monitoring. The patient denies giddiness,any specific complaint, or any chest pain, or shortness of breath. PHYSICAL EXAMINATION GENERAL: The patient is in no acute distress. VITAL SIGNS: Stable. Temperature 98.9, pulse 83, respirations 19, blood pressure 161/81 HEART: S1, S2 normal regular. LUNGS: Clear, bilateral air entry. ABDOMEN: Soft, nontender. EXTREMITIES: No edema, no calf swelling, no tenderness. No acute ischemia. CENTRAL NERVOUS SYSTEM: Essentially unchanged. DIAGNOSTIC DATA: Available diagnostic data revealed WBC 8.1, hemoglobin 10.9, hematocrit 33.5, platelets 265. Sodium 138, potassium 3.7, chloride 103, bicarbonate 23, BUN 37, creatinine 2.5. Accu-Cheks are 200, 302, 324, 389, 249. Multiple consults reviewed. Telemetry monitoring does not show significant arrhythmias. Overall, the patient's general condition is stable. The patient had myocardial perfusion scan done, results of which is pending. The patient is also being followed up by kitchenwhere maker, aircraft engine mechanic overhaul, neurologist, sand filler, and certified nurse aide. Consults are reviewed. PLAN: As ordered. Fabiano Ley MD
[2016-11-22] MEDS ORDERED: Insulin Lispro (humaLOG) 100 Units/ml Inj SC SCH ×2 (11:30→17:00)
[2016-11-22 12:09] VITALS: BP 133/87; TEMP 98.8
--- NOTE | 2016-11-22 13:09 | CP.PCM.PN ---
Subjective - Date & Time of Evaluation Date of Evaluation: 11/22/16 Time of Evaluation: 13:06 - Subjective Subjective: Seen on rounds in telemetry. Cardiology note reviewed. Patient examined at bedside. Reports ambulating in hallway. Vital signs are stable on present regimen. Lungs are clear to percussion and auscultation. No dependant edema. No cyanosis. Discussed medications with patient. New prescriptions sent to pharmacy (gabapentin and Breo 200). Medication reconciliation completed. Discharge to home ordered. Followup with my office Thursday. Outpatient pulmonary function study to be done. Objective - Vital Signs/Intake and Output Vital Signs (last 24 hours): Temp Pulse Resp BP Pulse Ox 98.8 F 79 18 133/87 98 11/22/16 12:00 11/22/16 12:00 11/22/16 12:00 11/22/16 12:00 11/22/16 12:00 - Medications Medications: Current Medications Acetaminophen (Tylenol 325mg Tab) 650 mg PO Q6 PRN PRN Reason: Pain, moderate (4-7) Albuterol (Ventolin Hfa 90 Mcg/Actuation (8 G)) 2 puff INH Q4H PRN PRN Reason: Shortness of Breath Albuterol Sulfate (Albuterol 0.083% Inhal Sadaf (2.5 Mg/3 Ml) Ud) 2.5 mg INH RQID [facility] Last Admin: 11/22/16 11:28 Dose: Not Given Amlodipine Besylate (Norvasc) 5 mg PO DAILY [facility] Last Admin: 11/22/16 08:44 Dose: 5 mg Aspirin (Ecotrin) 81 mg PO DAILY [facility] Last Admin: 11/22/16 08:34 Dose: 81 mg Budesonide (Pulmicort Respules) 0.25 mg INH RBID [facility] Last Admin: 11/22/16 08:24 Dose: Not Given Clopidogrel Bisulfate (Plavix) 75 mg PO DAILY [facility] Last Admin: 11/22/16 08:45 Dose: 75 mg Gabapentin (Neurontin) 100 mg PO HS [facility] Last Admin: 11/21/16 21:36 Dose: 100 mg Heparin Sodium (Porcine) (Heparin) 5,000 units SC Q12 [facility] PRN Reason: Protocol Last Admin: 11/22/16 08:35 Dose: 5,000 units Hydrochlorothiazide (Microzide) 12.5 mg PO DAILY [facility] Last Admin: 11/22/16 08:43 Dose: 12.5 mg Insulin Detemir (Levemir) 70 units SC HS [facility] Insulin Human Lispro (Humalog) 24 units SC ACL [facility] Last Admin: 11/22/16 12:46 Dose: 24 units Insulin Human Lispro (Humalog) 30 units SC DIN [facility] Insulin Human Lispro (Humalog) 24 units SC BRK [facility] Latanoprost (Xalatan Opht) 1 drop OU HS [facility] Last Admin: 11/21/16 21:36 Dose: 1 drop Metoprolol Tartrate (Lopressor) 100 mg PO DAILY [facility] Last Admin: 11/22/16 08:43 Dose: 100 mg Sitagliptin Phosphate (Januvia) 25 mg PO DAILY [facility] Last Admin: 11/22/16 08:42 Dose: 25 mg Zolpidem Tartrate (Ambien) 5 mg PO [facility] Last Admin: 11/21/16 21:38 Dose: 5 mg - Labs Labs: 11/21/16 05:30 11/21/16 05:30 Assessment and Plan (1) Dyspnea on exertion Status: Acute (2) Asthma Status: Chronic (3) CAD (coronary artery disease) Status: Chronic (4) COPD (chronic obstructive pulmonary disease) Status: Chronic (5) Diabetes mellitus Status: Chronic (6) CKD (chronic kidney disease) Status: Chronic
--- NOTE | 2016-11-22 13:35 | CARD ---
APPROVED REPORT Protocol: LEXISCAN Test Type: Stress Nuclear Medications: ALBUTEROL , AMLODIINE 5MG, ASA 81MG, CLOPIDROGREL 75MG, GABAPENTIN 100MG, HEPARIN 5,000 UNITS. HYDROCHLOROTHIAZIDE 12.5MG, METOPROLOL 100MG, SITAGLIPTIN 25MG, ZOLPIDEM 5MG. Medical History: CAD, CKD, DM, HYPERTENSION, RADIATING PAIN INTO LIMB,FORMER SMOKER, HYPERCHOLESTEROL, DVT, OSTEOPOROSIS, REFLUX, HYPERPARATHYROID. CABG, 2011, STENT PLACEMENT 2014 Target HR: 148 bpm Resting ECG: T wave inversion Resting Heart Rate: 68 bpm Resting Blood Pressure: 154/93mmHg submaximum (85%): 126 bpm TEST SUMMARY PREINJECTPRE-[id number]. [id number]. INJECTIONNS [id number]. INJECTIONNUC [id number]. [id number]. PROCEDURE Pharmacologic stress testing was performed using 0.4mg per 5ml of regadenoson given intravenously over 7-10 seconds. POST EXERCISE Reason for Termination: Pharmacologic Test Target HR: No Max HR: 78 bpm 55% of Maximum Predicted HR: 148 bpm Exercise duration: 01:00 min:sec, 0 Stage Exercise capacity: 1.0METs Max Blood Pressure: 168/91mmHg Blood Pressure response to exercise: normal resting BP - appropriate response Heart Rate response to exercise: appropriate Chest Pain: No, none Angina index: 0 Arrhythmia: No, none ST Change: No, none Deviation: 0 mm Clinical Indications Under Appropriate Use Criteria This 71-year-old hypertensive diabetic female with a long history of chronic cigarette use wet suffered a myocardial infarction requiring coronary bypass graft surgery underwent this study to rule out evidence of recurring myocardial ischemia. The patient had undergone coronary stenting in September 2015. Now the patient had reported a vague sense of chest discomfort quite unconnected to physical activity. She also reported significant shortness of breath. Her resting electric cardiogram showed sinus rhythm with widespread ST-T abnormalities which were seen on her earlier electrocardiogram's as far back as 2014. No Q waves were detected on the electric cardiogram. Her resting blood pressure was 155/95 mmHg. Her cardiac auscultation was unremarkable. Stress EKG Interpretation The patient underwent an initial myocardial perfusion scan after 10 mCi of sestamibi was given intravenously followed 45 minutes later by myocardial scanning. An hour and a half from the initial acquisition of sestamibi, the patient underwent an intravenous infusion of 0.4 mg of Lexiscan over 10 seconds followed immediately by 30 mCi of sestamibi given intravenously. The patient tolerated Lexiscan infusion without any chest pain and without any ST-T abnormalities suggestive of myocardial ischemia. The patient had appropriate heart rate and blood pressure response to Lexiscan infusion. The patient left the stress lab symptom free and hemodynamically stable. 45 minutes later she underwent a second myocardial scan. The 2 sets of images were processed. Gated and planar images were acquired. Tomographic images were examined. EXAM: Myocardial Perfusion REST/STRESS Image Qualitygood Imaging Protocol Time of rest injection: 0715 Time of rest imagin Time of stress injection: 0915 Time of stress imagin The images were gated to evaluate regional wall motion and calculate ventricular ejection fraction.Images were reconstructed using backfilter projection method in short horizontal and verticle long axis. Spect slices were generated. LV Perfusion Both the resting as well as post Lexiscan images showed normal regional sestamibi uptake. Wall Motion Gated images showed a normal-sized left ventricle with normal regional wall motion and wall thickening. Her resting left ventricular ejection fraction was 69%. CONCLUSION 1. No evidence of potentially ischemic myocardium was detected during this examination. Her resting left ventricular ejection fraction was 69%. Recommendation Continue coronary risk factor management.
--- NOTE | 2016-11-22 14:47 | PN ---
ROOM: 417 This is a 71-year-old female with recent uncontrolled type 2 insulin-requiring diabetes, now being followed closely for metabolic management. Her glycemic levels are fluctuating but much improved at this time and the latest chemistries showed a BUN of 37, sodium 138, potassium 3.7, chloride 103, CO2 23, glucose 200 and creatinine 2.5. However, her glycemic fluctuations continue and persist with glucose levels ranging from 249 to 389 mg/dL. It was 302 to 324 yesterday as noted, so at this time we will modify once again her basal and bolus insulin regimen and increase the lunchtime dosing to 24 units a.c. lunch s to start today as noted. We will also increase the dinnertime dose to 30 units of Humalog to start tonight as ordered. We will also be increasing the breakfast dosing of the Humalog to 24 units subcu as noted before breakfast daily as ordered. We will titrate incrementally as indicated to optimize metabolic control. We will continue the low-dose correction scale using Humalog insulin as ordered. We will titrate incremental as indicated to optimize metabolic control. We will also be increasing the basal insulin with Levemir to be given as 70 units subcu at bedtime daily to start tonight. We will obtain serial chemistries and supplement accordingly knee. We will follow and advise accordingly. Vika Villanueva MD
[2016-11-22] MEDS ORDERED: Insulin Detemir 100 Units/ml Inj SC SCH (22:00)
[2016-11-23] MEDS ORDERED: Insulin Lispro (humaLOG) 100 Units/ml Inj SC SCH (08:00)
--- NOTE | 2016-11-25 12:31 | PQF GENQUE ---
Dr. Ellis pt was admitted with weakness and elevated creatine kinase level. After study what is the principal diagnosis/diagnoses for this case? This form is a permanent part of the medical record Clarification of your documentation is requested to better reflect the severity of illness and intensity of treatment of your patient. Indicators present [] Specify: [] [] Specify: [] [] Specify: [] [] Specify: [] Location in the medical record that reflects the above clinical findings: [] Treatment Provided: [] PHYSICIAN'S RESPONSE Based on your medical judgment of the clinical indicators outlined above please clarify the following: [] Practitioner response [] If unable to determine, please check the box, sign and date. Present On Admission (POA) Indicator: [] Present at the time of admission [] Not present at the time of admission [] Clinically Undetermined In responding to this query, please exercise your independent professional judgment. The fact that a question is asked does not imply that any particular answer is desired or expected. Thank you for your clarification on this documentation. If you have any questions please call:[ ] * Thank you, [ ]Catalina García toy assembler JANINA
== END 2016-11-22 13:45 | disposition home or self-care (01) | DRG 948 ==
LOC: H.ER 13:07 → H.ERHOLD 16:00 → H.TEL 21:11
PROVIDERS: ADMIT Family Medicine Geriatric Medicine; ATTEND Family Medicine Geriatric Medicine
DX: R53.1 Weakness (principal); N18.4 Chronic kidney disease, stage 4 (severe); E11.21 Type 2 diabetes mellitus with diabetic nephropathy; E11.42 Type 2 diabetes mellitus with diabetic polyneuropathy; R53.83 Other fatigue; R06.02 Shortness of breath; E11.65 Type 2 diabetes mellitus with hyperglycemia; E11.22 Type 2 diabetes mellitus with diabetic chronic kidney disease; E11.319 Type 2 diabetes mellitus with unspecified diabetic retinopathy without macular edema; Z79.4 Long term (current) use of insulin; Z88.0 Allergy status to penicillin; E66.9 Obesity, unspecified; Z68.30 Body mass index [BMI] 30.0-30.9, adult; J44.9 Chronic obstructive pulmonary disease, unspecified; E78.5 Hyperlipidemia, unspecified; R91.8 Other nonspecific abnormal finding of lung field; I25.10 Atherosclerotic heart disease of native coronary artery without angina pectoris; Z95.1 Presence of aortocoronary bypass graft; Z95.5 Presence of coronary angioplasty implant and graft; J45.909 Unspecified asthma, uncomplicated; E78.00 Pure hypercholesterolemia, unspecified; I12.9 Hypertensive chronic kidney disease with stage 1 through stage 4 chronic kidney disease, or unspecified chronic kidney disease; R26.81 Unsteadiness on feet

== ENCOUNTER 2017-05-19 22:27 | Emergency (ER) | payer MEDICARE, BC ==
[2017-05-19 22:27] VITALS: BMI 30.1
[2017-05-19 23:12] LABS: HEMOGLOBIN 11.2 g/dL (12.0-16.0); MEAN CORPUSCULAR HGB CONC 33.4 g/dL (33.0-37.0); RBC 4.15 Mil/uL (3.80-5.20); RED CELL DISTRIBUTION WIDTH 14.1 % (11.5-14.5); WHITE BLOOD COUNT 8.7 K/uL (4.8-10.8)
[2017-05-19 23:21] LABS: ALB/GLOB RATIO 0.9 (1.0-2.1); ALBUMIN 3.6 g/dL (3.5-5.0); CALCIUM 9.3 mg/dL (8.4-10.2)
[2017-05-19] MEDS ORDERED: DiphenhydrAMINE 50 mg/ml Inj IVP STA (23:43)
--- NOTE | 2017-05-19 23:46 | ED PDOC ---
HPI: Allergic Reaction Time Seen by Provider: 05/19/17 22:43 Chief Complaint (Nursing): Allergic Reaction Chief Complaint (Provider): Allergic reactino History Per: Patient History/Exam Limitations: no limitations Onset/Duration Of Symptoms: Mins Current Symptoms Are (Timing): Still Present Additional Complaint(s): 72 yo female with history of HTN and DM presents with swollen right upper lip and scratchy throat after eating shrimp for dinner. PT states she immediately took an sarah at home and states it has some what improved. No SOB. Past Medical History Reviewed: Historical Data, Nursing Documentation, Vital Signs Vital Signs: Last Vital Signs Temp 98.0 F 05/19/17 22:29 Pulse 93 H 05/19/17 22:29 Resp 16 05/19/17 22:29 BP 125/72 05/19/17 22:29 Pulse Ox 100 05/19/17 22:29 - Medical History PMH: Asthma, CAD, COPD, Diabetes (type II), HTN, Hypercholesterolemia, Kidney Stones (x2), Osteoporosis, Chronic Kidney Disease - Surgical History Surgical History: CABG (quadruple), Coronary Stent, Tonsillectomy Denies: Pacemaker - Family History Family History: States: Unknown Family Hx - Living Arrangements Living Arrangements: With Family - Social History Current smoker - smoking cessation education provided: No - Home Medications Home Medications: Ambulatory Orders Medication Instructions Recorded Clopidogrel [Plavix] 75 mg PO DAILY 01/15/16 Hydrochlorothiazide [Microzide] 12.5 mg PO DAILY 01/15/16 Insulin Glargine,Hum.rec.anlog 70 units SQ HS 01/15/16 [Tounicolleo Solostar] Metoprolol Tartrate [Lopressor] 100 mg PO DAILY 01/15/16 SITagliptin [Januvia] 25 mg PO DAILY 01/15/16 amLODIPine [Norvasc] 5 mg PO DAILY 01/15/16 Albuterol Sulfate [Proair Hfa] 2 puff IH Q4H PRN 11/18/16 Aspirin [Ecotrin] 81 mg PO DAILY 11/18/16 Albuterol HFA [Ventolin HFA 90 2 puff INH Q4H PRN inhaler 11/22/16 mcg/actuation (8 g)] Gabapentin [Neurontin] 100 mg PO HS #30 cap 11/22/16 Insulin Lispro [Humalog Kwikpen 24 unit SC ACL #0 09/02/17 U-200] Insulin Lispro [Humalog Kwikpen 24 unit SC BRK #0 11/22/16 U-200] Insulin Lispro [Humalog Kwikpen 30 unit SC DIN #0 11/22/16 U-200] Latanoprost 0.005% Opht [Xalatan 1 drop OU HS bottle 11/22/16 Opht] Zolpidem [Ambien] 5 mg PO HS tab 11/22/16 - Allergies Allergies/Adverse Reactions: Allergies Allergy/AdvReac Type Severity Reaction Status Date / Time Penicillins Allergy RASH Verified 05/19/17 22:33 Review of Systems ROS Statement: Except As Marked, All Systems Reviewed And Found Negative Constitutional: Negative for: Fever, Chills, Sweats Cardiovascular: Negative for: Chest Pain Skin: Positive for: Other Physical Exam - Reviewed Nursing Documentation Reviewed: Yes Vital Signs Reviewed: Yes - Physical Exam Appears: Positive for: Well, Non-toxic, No Acute Distress Head Exam: Positive for: ATRAUMATIC, NORMAL INSPECTION, NORMOCEPHALIC Skin: Positive for: Normal Color, Warm, DRY Eye Exam: Positive for: Normal appearance ENT: Positive for: Other (Mild edema of the lower portion of the upper right lip ). Negative for: Normal ENT Inspection Neck: Positive for: Normal, Painless ROM Cardiovascular/Chest: Positive for: Regular Rate, Rhythm Respiratory: Positive for: Normal Breath Sounds. Negative for: Accessory Muscle Use, Respiratory Distress Gastrointestinal/Abdominal: Positive for: Normal Exam, Bowel Sounds, Soft Back: Positive for: Normal Inspection Extremity: Positive for: Normal ROM Neurologic/Psych: Positive for: Alert, Oriented - Laboratory Results Result Diagrams: 05/19/17 23:10 05/19/17 23:10 - ECG O2 Sat by Pulse Oximetry: 100 Disposition - Clinical Impression Clinical Impression: Allergic reaction - Patient ED Disposition Is Patient to be Admitted: Transfer of Care - Disposition Disposition: Transfer of Care Disposition Time: 23:49 Condition: GOOD Medical Decision Making Medical Decision Making: Endorsed pending re-evaluation of angioedema after medications.
--- NOTE | 2017-05-20 01:48 | ED PDOC ---
- Laboratory Results Result Diagrams: 05/19/17 23:10 05/19/17 23:10 - ECG O2 Sat by Pulse Oximetry: 100 - Progress ED Course And Treament: Case endorsed to signwriter from Stefano QUIROS pending re-eval 1:40 Patient states she feels better, feels swelling improved. Patient educated on findings, discharged with rx Prednisone (instructed to check sugars more frequently as can increase levels), Pepcid. Advised to continue Adriana Follow up PMD 2-3 days. Return precautions given. Disposition - Clinical Impression Clinical Impression: Allergic reaction - POA Present On Arrival: None - Disposition Disposition: Routine/Home Disposition Time: 01:47 Condition: IMPROVED Prescriptions: Famotidine [Pepcid] 20 mg PO BID #8 tab Prednisone [Deltasone] 40 mg PO DAILY #8 tablet Instructions: Angioedema (DC)
[2017-05-20 02:15] VITALS: BP 130/75; PULSE 84; RESP 17; TEMP 98.1; O2SAT 99
== END 2017-05-20 01:52 | disposition home or self-care (01) ==
LOC: H.ER 22:27
DX: T78.40XA Allergy, unspecified, initial encounter (principal); E11.22 Type 2 diabetes mellitus with diabetic chronic kidney disease; I12.9 Hypertensive chronic kidney disease with stage 1 through stage 4 chronic kidney disease, or unspecified chronic kidney disease; Z79.82 Long term (current) use of aspirin; Z87.442 Personal history of urinary calculi; Z88.0 Allergy status to penicillin; Z95.1 Presence of aortocoronary bypass graft; Z95.5 Presence of coronary angioplasty implant and graft; N18.9 Chronic kidney disease, unspecified; Z79.4 Long term (current) use of insulin; J44.9 Chronic obstructive pulmonary disease, unspecified; M81.0 Age-related osteoporosis without current pathological fracture; E78.00 Pure hypercholesterolemia, unspecified; I25.10 Atherosclerotic heart disease of native coronary artery without angina pectoris
CPT/HCPCS: 80053; 82948; 85027; 96374; 99283; J1200; J2930

== ENCOUNTER 2017-05-20 21:10 | Observation (INO) | payer MEDICARE, BC ==
[2017-05-20 21:10] VITALS: BMI 30.1
[2017-05-20] MEDS ORDERED: Sodium Chloride 0.9% 500 ML IV STA (21:43)
--- NOTE | 2017-05-20 21:47 | ED PDOC ---
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 with chest pain and tightness. Dyspnea with it. No leg pain, dizziness, headaches, abd pain, nausea, vomit. Here yesterday for allergic reaction from shrimp. Started prednisone and albuterol for it. PCP Dr. West. Cards: Dr. López. Past Medical History Reviewed: Nursing Documentation, Vital Signs - Medical History PMH: Asthma, CAD, COPD, Diabetes (type II), HTN, Hypercholesterolemia, Kidney Stones (x2), Osteoporosis, Chronic Kidney Disease - Surgical History Surgical History: CABG (quadruple), Coronary Stent, Tonsillectomy Denies: Pacemaker - Family History Family History: States: Unknown Family Hx - Living Arrangements Living Arrangements: With Family - Social History Current smoker - smoking cessation education provided: No Alcohol: None Drugs: Denies - Home Medications Home Medications: Ambulatory Orders Medication Instructions Recorded Clopidogrel [Plavix] 75 mg PO DAILY 01/15/16 Hydrochlorothiazide [Microzide] 12.5 mg PO DAILY 01/15/16 Insulin Glargine,Hum.rec.anlog 70 units SQ HS 01/15/16 [Toujeo Solostar] Metoprolol Tartrate [Lopressor] 100 mg PO DAILY 01/15/16 SITagliptin [Januvia] 25 mg PO DAILY 01/15/16 amLODIPine [Norvasc] 5 mg PO DAILY 01/15/16 Albuterol Sulfate [Proair Hfa] 2 puff IH Q4H PRN 11/18/16 Aspirin [Ecotrin] 81 mg PO DAILY 11/18/16 Albuterol HFA [Ventolin HFA 90 2 puff INH Q4H PRN inhaler 11/22/16 mcg/actuation (8 g)] Gabapentin [Neurontin] 100 mg PO HS #30 cap 11/22/16 Insulin Lispro [Humalog Kwikpen 24 unit SC ACL #0 11/22/16 U-200] Insulin Lispro [Humalog Kwikpen 24 unit SC BRK #0 11/22/16 U-200] Insulin Lispro [Humalog Kwikpen 30 unit SC DIN #0 11/22/16 U-200] Latanoprost 0.005% Opht [Xalatan 1 drop OU HS bottle 11/22/16 Opht] Zolpidem [Ambien] 5 mg PO HS tab 11/22/16 Famotidine [Pepcid] 20 mg PO BID #8 tab 05/20/17 Fluticasone Propionate [Flovent 110 mcg PO ONCE 05/20/17 Hfa] Hydrochlorothiazide [Microzide] 12.5 mg PO ONCE 05/20/17 Losartan [Cozaar] 50 mg PO ONCE 05/20/17 Prednisone [Deltasone] 40 mg PO DAILY #8 tablet 05/20/17 - Allergies Allergies/Adverse Reactions: Allergies Allergy/AdvReac Type Severity Reaction Status Date / Time Penicillins Allergy RASH Verified 05/19/17 22:33 Review of Systems ROS Statement: Except As Marked, All Systems Reviewed And Found Negative Cardiovascular: Positive for: Chest Pain Physical Exam - Reviewed Nursing Documentation Reviewed: Yes Vital Signs Reviewed: Yes - Physical Exam Appears: Positive for: Non-toxic, No Acute Distress Head Exam: Positive for: ATRAUMATIC, NORMAL INSPECTION, NORMOCEPHALIC Skin: Positive for: Normal Color, Warm, DRY Eye Exam: Positive for: EOMI, Normal appearance, PERRL ENT: Positive for: Normal ENT Inspection Neck: Positive for: Normal, Painless ROM Cardiovascular/Chest: Positive for: Regular Rate, Rhythm Respiratory: Positive for: CNT, Normal Breath Sounds Gastrointestinal/Abdominal: Positive for: Normal Exam, Bowel Sounds, Soft. Negative for: Tenderness Back: Positive for: Normal Inspection. Negative for: L CVA Tenderness, R CVA Tenderness Extremity: Positive for: Normal ROM. Negative for: Tenderness, Pedal Edema Neurologic/Psych: Positive for: Alert, Oriented - Laboratory Results Result Diagrams: 05/20/17 23:14 05/20/17 23:14 Interpretation Of Abn Labs: bun and cr elevated - ECG ECG: Positive for: Interpreted By Me, Viewed By Me ECG Rhythm: Positive for: Nonspecific Changes Interpretation Of Abn EKG: same as old - Radiology X-Ray: Interpreted by Me, Viewed By Me X-Ray Interpretation: No Acute Disease - Progress ED Course And Treament: 2358: BUN and Cr similar to old. Pt. on steroids and likely cause of elevated wbc. Spoke with Dr. López. Will consult. No additional tx at this time. Spoke with Dr. West. Will admit and give further orders when pt. reaches floor. Pt. took ASA full dose at home. Pain free. Disposition - Clinical Impression Clinical Impression: Acute chest pain - Patient ED Disposition Is Patient to be Admitted: Yes Counseled Patient/Family Regarding: Studies Performed, Diagnosis - Disposition Disposition Time: 23:00 Condition: FAIR - Pt Status Changed To: Hospital Disposition Of: Observation - POA Present On Arrival: Poor Glycemic Control
[2017-05-20 23:18] LABS: BASO # 0.1 K/uL (0.0-0.2); BASO % 0.4 % (0.0-2.0); HEMOGLOBIN 10.6 g/dL (12.0-16.0); LYMPH # 1.3 K/uL (1.0-4.3); LYMPH % 8.4 % (20.0-40.0); MEAN CELL VOLUME 81.1 fl (81.0-99.0); MEAN CORPUSCULAR HEMOGLOBIN 27.4 pg (27.0-31.0); MEAN CORPUSCULAR HGB CONC 33.8 g/dL (33.0-37.0); MEAN PLATELET VOLUME 9.9 fl (7.2-11.7); MONO # 0.6 K/uL (0.0-0.8); MONO % 3.9 % (0.0-10.0); NEUT # 13.2 K/uL (1.8-7.0); NEUT % 87.3 % (50.0-75.0); PLATELET COUNT 297 K/uL (130-400); RBC 3.88 Mil/uL (3.80-5.20); RED CELL DISTRIBUTION WIDTH 14.4 % (11.5-14.5); WHITE BLOOD COUNT 15.2 K/uL (4.8-10.8)
[2017-05-20 23:37] LABS: ALBUMIN 3.9 g/dL (3.5-5.0); CALCIUM 9.6 mg/dL (8.4-10.2)
[2017-05-20 23:44] LABS: INR 1.1 (0.9-1.2); PARTIAL THROMBOPLASTIN TIME 26.6 Seconds (25.6-37.1); PROTHROMBIN TIME 11.7 Seconds (9.8-13.1)
[2017-05-20 23:49] LABS: TROPONIN I 0.024 ng/mL (0.00-0.120)
[2017-05-21] MEDS ORDERED: Insulin Regular 100 units/ml IV STA (00:09)
[2017-05-21 01:37] LABS: LYMPHOCYTE 8 % (20-50); MONOCYTE 4 % (0-10); NEUTROPHIL 88 % (42-75); PLATELET ESTIMATE NORMAL (NORMAL); TOTAL CELLS COUNTED 100
--- NOTE | 2017-05-21 08:40 | CP.PCM.CON ---
History of Present Illness - History of Present Illness History of Present Illness: This 72-year-old female came into the emergency room complaining of chest discomfort which began at rest and resolved spontaneously just before she arrived in the emergency room approximately half an hour late. The discomfort did not spread to her jaw or arms. It was not accompanied by any nausea or vomiting or palpitations. The patient does admit that during the night she has burped a few times and gotten some relief. The patient was recently started on oral corticosteroid-induced for a an allergic reaction to seafood. The patient has a long medical history that includes diabetes and hypertension and she has required coronary bypass graft surgery in 2012 followed by coronary stenting approximately one year back. She has a normally functioning left ventricle and has never manifested overt congestive cardiac failure. She is an ex-smoker who has significant restrictive lung disease. Broncho-dilators did not improve her FEV1. Physical examination shows an anxious female who is hospitalized. He she is alert awake and coherent. She has slightly puffy face which she ascribes to the recent allergic reaction. She breathes at 16 breaths per minute and can carry on conversation. Telemetry shows steady sinus rhythm at rates between 80 and 90 bpm. Her blood pressure was 160/70 mmHg. Her jugular venous pressure was not elevated there was no edema or lower extremities. The pedal pulses were feeble. There were no carotid bruits. Extremities were warm and the nailbeds were pink. There was no central or peripheral cyanosis. A scar of sternotomy was evident. There was a brief ejection systolic murmur in the aortic area the second heart sound was preserved. There were no rales. The expiration is slightly prolonged. Abdomen was soft liver and spleen are not palpable. Her electro-cardiogram showed sinus rhythm with a borderline left ventricular hypertrophy pattern ST segments were depressed and inverted T waves were inverted in lead 1 and aVL as well as V4 V5 and V6, a pattern seen on her earlier electrocardiograms of last year as well. Her labs were noted her initial troponin level was normal. Impression: Atypical chest pain in a patient with known coronary artery disease with status post coronary bypass graft surgery and a history of coronary stenting. Severe COPD as well as restrictive lung disease. Diabetes mellitus hypertension and dyslipidemia. If a second set of cardiac enzymes is also normal the patient may be allowed to return home to be managed as an outpatient. Past Patient History - Infectious Disease Hx of Infectious Diseases: None - Tetanus Immunizations Tetanus Immunization: Unknown - Past Medical History & Family History Past Medical History?: Yes - Past Social History Smoking Status: Former Smoker - CARDIAC Hx Hypercholesterolemia: Yes Hx Hypertension: Yes Hx Pacemaker: No - PULMONARY Hx Asthma: Yes Hx Chronic Obstructive Pulmonary Disease (COPD): Yes - NEUROLOGICAL Other/Comment: Neuropathy - HEENT Hx HEENT Problems: No - RENAL Hx Chronic Kidney Disease: Yes - ENDOCRINE/METABOLIC Hx Diabetes Mellitus Type 2: Yes (on insulin) Other/Comment: hyperparathyroid - HEMATOLOGICAL/ONCOLOGICAL Hx Blood Transfusions: No Other/Comment: DVT at the age of 28yrs old. - INTEGUMENTARY Hx Dermatological Problems: No - MUSCULOSKELETAL/RHEUMATOLOGICAL Hx Falls: Yes - GASTROINTESTINAL Hx Gastroesophageal Reflux: Yes HX Swallowing Problems: Yes - GENITOURINARY/GYNECOLOGICAL Hx Genitourinary Disorders: No - PSYCHIATRIC Hx Substance Use: No - SURGICAL HISTORY Hx Coronary Artery Bypass Graft: Yes (quadruple) Hx Coronary Stent: Yes Hx Tonsillectomy: Yes - ANESTHESIA Hx Anesthesia: Yes Hx Anesthesia Reactions: No Hx Malignant Hyperthermia: No Meds Allergies/Adverse Reactions: Allergies Allergy/AdvReac Type Severity Reaction Status Date / Time Penicillins Allergy RASH Verified 05/19/17 22:33 - Medications Medications: Current Medications Amlodipine Besylate (Norvasc) 5 mg PO DAILY [facility] Aspirin (Ecotrin) 81 mg PO DAILY [facility] Enoxaparin Sodium (Lovenox) 40 mg SC DAILY [facility] PRN Reason: Protocol Famotidine (Pepcid) 20 mg PO BID [facility] Hydrochlorothiazide (Microzide) 12.5 mg PO ONCE [facility] Losartan Potassium (Cozaar) 50 mg PO ONCE [facility] Metoprolol Tartrate (Lopressor) 100 mg PO DAILY [facility] Prednisone (Prednisone Tab) 40 mg PO DAILY [facility] Sitagliptin Phosphate (Januvia) 25 mg PO DAILY [facility] Results - Vital Signs Recent Vital Signs: Last Vital Signs Temp 98.1 F 05/21/17 08:00 Pulse 83 05/21/17 08:00 Resp 20 05/21/17 08:00 BP 170/84 H 05/21/17 08:00 Pulse Ox 98 05/21/17 08:00 - Labs Result Diagrams: 05/20/17 23:14 05/20/17 23:14 Labs: Laboratory Results - last 24 hr 05/20/17 05/20/17 05/20/17 22:41 23:14 23:14 WBC RBC Hgb Hct MCV MCH MCHC RDW Plt Count MPV Neut % (Auto) Lymph % (Auto) [place] % (Auto) Eos % (Auto) Baso % (Auto) Neut # (Auto) Lymph # (Auto) [place] # (Auto) Eos # (Auto) Baso # (Auto) Neutrophils % (Manual) Lymphocytes % (Manual) Monocytes % (Manual) Platelet Estimate RBC Morphology PT 11.7 INR 1.1 APTT 26.6 Sodium 138 Potassium 3.6 Chloride 103 Carbon Dioxide 18 L Anion Gap 21 H BUN 52 H Creatinine 3.2 H Est GFR ( Amer) 17 Est GFR (Non-Af Amer) 14 POC Glucose (mg/dL) 308 H Random Glucose 321 H Calcium 9.6 Total Bilirubin 0.4 AST 27 ALT 22 Alkaline Phosphatase 98 Troponin I 0.0240 NT-Pro-B Natriuret Pep 2190 H Total Protein 7.9 Albumin 3.9 Globulin 4.0 H Albumin/Globulin Ratio 1.0 05/20/17 05/21/17 05/21/17 23:14 01:53 06:21 WBC 15.2 H D RBC 3.88 Hgb 10.6 L Hct 31.5 L MCV 81.1 MCH 27.4 MCHC 33.8 RDW 14.4 Plt Count 297 MPV 9.9 Neut % (Auto) 87.3 H Lymph % (Auto) 8.[address] [place] % (Auto) 3.9 Eos % (Auto) 0.0 Baso % (Auto) 0.4 Neut # (Auto) 13.2 H Lymph # (Auto) 1.3 [place] # (Auto) 0.6 Eos # (Auto) 0.0 Baso # (Auto) 0.1 Neutrophils % (Manual) 88 H Lymphocytes % (Manual) 8 L Monocytes % (Manual) 4 Platelet Estimate Normal RBC Morphology Normal PT INR APTT Sodium Potassium Chloride Carbon Dioxide Anion Gap BUN Creatinine Est GFR ( Amer) Est GFR (Non-Af Amer) POC Glucose (mg/dL) 248 H 231 H Random Glucose Calcium Total Bilirubin AST ALT Alkaline Phosphatase Troponin I NT-Pro-B Natriuret Pep Total Protein Albumin Globulin Albumin/Globulin Ratio
[2017-05-21 09:22] LABS: HEMOGLOBIN 10.6 g/dL (12.0-16.0); MEAN CORPUSCULAR HEMOGLOBIN 26.4 pg (27.0-31.0); MEAN CORPUSCULAR HGB CONC 32.1 g/dL (33.0-37.0); RBC 4.01 Mil/uL (3.80-5.20); RED CELL DISTRIBUTION WIDTH 14.6 % (11.5-14.5); WHITE BLOOD COUNT 18.1 K/uL (4.8-10.8)
--- NOTE | 2017-05-21 09:30 | RAD ---
HISTORY: dyspnea COMPARISON: 11/18/2016 FINDINGS: LUNGS: No active pulmonary disease. PLEURA: No significant pleural effusion identified, no pneumothorax apparent. CARDIOVASCULAR: Normal heart size. CABG. No congestive change. OSSEOUS STRUCTURES: No significant abnormalities. VISUALIZED UPPER ABDOMEN: Normal. OTHER FINDINGS: None. IMPRESSION: No active disease.
[2017-05-21 09:38] LABS: CALCIUM 9.6 mg/dL (8.4-10.2)
[2017-05-21 09:49] LABS: TROPONIN I 0.047 ng/mL (0.00-0.120)
[2017-05-21] MEDS: Enoxaparin 30 mg Syringe SC SCH (09:57)
[2017-05-21] MEDS ORDERED: Sodium Chloride 0.9% 1,000 ML IV SCH (10:00)
[2017-05-21] MEDS ORDERED: Glucagon Recombinant 1 mg Inj IM PRN ×2 (11:11→11:17)
[2017-05-21] MEDS ORDERED: Dextrose 50% SYRINGE Inj (50 ml) IV PRN ×2 (11:11→11:17)
[2017-05-21] MEDS: Insulin Regular 100 units/ml SC SCH ×3 (11:37→21:10)
[2017-05-21] MEDS: Insulin Lispro (humaLOG) 100 Units/ml Inj SC SCH ×2 (12:28→16:01)
--- NOTE | 2017-05-21 15:36 | CP.PCM.HP ---
History of Present Illness - History of Present Illness History of Present Illness: 72 yo with hx of significant CAD admitted for Chest pain Present on Admission - Present on Admission Any Indicators Present on Admission: No Past Patient History - Infectious Disease Hx of Infectious Diseases: None - Tetanus Immunizations Tetanus Immunization: Unknown - Past Medical History & Family History Past Medical History?: Yes - Past Social History Smoking Status: Former Smoker - CARDIAC Hx Hypercholesterolemia: Yes Hx Hypertension: Yes Hx Pacemaker: No - PULMONARY Hx Asthma: Yes Hx Chronic Obstructive Pulmonary Disease (COPD): Yes - NEUROLOGICAL Other/Comment: Neuropathy - HEENT Hx HEENT Problems: No - RENAL Hx Chronic Kidney Disease: Yes - ENDOCRINE/METABOLIC Hx Diabetes Mellitus Type 2: Yes (on insulin) Other/Comment: hyperparathyroid - HEMATOLOGICAL/ONCOLOGICAL Hx Blood Transfusions: No Other/Comment: DVT at the age of 28yrs old. - INTEGUMENTARY Hx Dermatological Problems: No - MUSCULOSKELETAL/RHEUMATOLOGICAL Hx Falls: Yes - GASTROINTESTINAL Hx Gastroesophageal Reflux: Yes HX Swallowing Problems: Yes - GENITOURINARY/GYNECOLOGICAL Hx Genitourinary Disorders: No - PSYCHIATRIC Hx Substance Use: No - SURGICAL HISTORY Hx Coronary Artery Bypass Graft: Yes (quadruple) Hx Coronary Stent: Yes Hx Tonsillectomy: Yes - ANESTHESIA Hx Anesthesia: Yes Hx Anesthesia Reactions: No Hx Malignant Hyperthermia: No Meds Allergies/Adverse Reactions: Allergies Allergy/AdvReac Type Severity Reaction Status Date / Time Penicillins Allergy RASH Verified 05/19/17 22:33 shrimp AdvReac SWELLING Verified 05/21/17 10:24 Physical Exam - Respiratory Exam Respiratory Exam: NORMAL BREATHING PATTERN - Cardiovascular Exam Cardiovascular Exam: REGULAR RHYTHM - GI/Abdominal Exam GI & Abdominal Exam: Normal Bowel Sounds Results - Vital Signs Recent Vital Signs: Last Vital Signs Temp 98.2 F 05/21/17 12:00 Pulse 76 05/21/17 12:00 Resp 20 05/21/17 12:00 BP 171/86 H 05/21/17 12:00 Pulse Ox 98 05/21/17 12:00 - Labs Result Diagrams: 05/21/17 09:00 05/21/17 09:00 Labs: Laboratory Results - last 24 hr 05/20/17 05/20/17 05/20/17 22:41 23:14 23:14 WBC RBC Hgb Hct MCV MCH MCHC RDW Plt Count MPV Neut % (Auto) Lymph % (Auto) [place] % (Auto) Eos % (Auto) Baso % (Auto) Neut # (Auto) Lymph # (Auto) [place] # (Auto) Eos # (Auto) Baso # (Auto) Neutrophils % (Manual) Lymphocytes % (Manual) Monocytes % (Manual) Platelet Estimate RBC Morphology PT 11.7 INR 1.1 APTT 26.6 Sodium 138 Potassium 3.6 Chloride 103 Carbon Dioxide 18 L Anion Gap 21 H BUN 52 H Creatinine 3.2 H Est GFR ( Amer) 17 Est GFR (Non-Af Amer) 14 POC Glucose (mg/dL) 308 H Random Glucose 321 H Calcium 9.6 Total Bilirubin 0.4 AST 27 ALT 22 Alkaline Phosphatase 98 Troponin I 0.0240 NT-Pro-B Natriuret Pep 2190 H Total Protein 7.9 Albumin 3.9 Globulin 4.0 H Albumin/Globulin Ratio 1.0 05/20/17 05/21/17 05/21/17 23:14 01:53 06:21 WBC 15.2 H D RBC 3.88 Hgb 10.6 L Hct 31.5 L MCV 81.1 MCH 27.4 MCHC 33.8 RDW 14.4 Plt Count 297 MPV 9.9 Neut % (Auto) 87.3 H Lymph % (Auto) 8.4 L [place] % (Auto) 3.9 Eos % (Auto) 0.0 Baso % (Auto) 0.4 Neut # (Auto) 13.2 H Lymph # (Auto) 1.3 [place] # (Auto) 0.6 Eos # (Auto) 0.0 Baso # (Auto) 0.1 Neutrophils % (Manual) 88 H Lymphocytes % (Manual) 8 L Monocytes % (Manual) 4 Platelet Estimate Normal RBC Morphology Normal PT INR APTT Sodium Potassium Chloride Carbon Dioxide Anion Gap BUN Creatinine Est GFR ( Amer) Est GFR (Non-Af Amer) POC Glucose (mg/dL) 248 H 231 H Random Glucose Calcium Total Bilirubin AST ALT Alkaline Phosphatase Troponin I NT-Pro-B Natriuret Pep Total Protein Albumin Globulin Albumin/Globulin Ratio 05/21/17 05/21/17 05/21/17 09:00 09:00 11:01 WBC 18.1 H RBC 4.01 Hgb 10.6 L Hct 32.9 L MCV 82.0 MCH 26.4 L MCHC 32.1 L RDW 14.6 H Plt Count 309 MPV Neut % (Auto) Lymph % (Auto) [place] % (Auto) Eos % (Auto) Baso % (Auto) Neut # (Auto) Lymph # (Auto) [place] # (Auto) Eos # (Auto) Baso # (Auto) Neutrophils % (Manual) Lymphocytes % (Manual) Monocytes % (Manual) Platelet Estimate RBC Morphology PT INR APTT Sodium 141 Potassium 3.8 Chloride 105 Carbon Dioxide 20 L Anion Gap 20 BUN 45 H Creatinine 2.9 H Est GFR ( Amer) 19 Est GFR (Non-Af Amer) 16 POC Glucose (mg/dL) 362 H Random Glucose 239 H Calcium 9.6 Total Bilirubin AST ALT Alkaline Phosphatase Troponin I 0.0470 NT-Pro-B Natriuret Pep Total Protein Albumin Globulin Albumin/Globulin Ratio Assessment & Plan - Assessment and Plan (Free Text) Assessment: Chest pain Hx CAD s/p CABG S/P Angioplasty Admit to $N Telemetry Cardiology consult - Date & Time Date: 05/21/17 Time: 22:22
--- NOTE | 2017-05-21 20:08 | CP.PCM.CON ---
History of Present Illness - History of Present Illness History of Present Illness: pt is seen and examined, follow up consult is dictated #[id number] Past Patient History - Infectious Disease Hx of Infectious Diseases: None - Tetanus Immunizations Tetanus Immunization: Unknown - Past Medical History & Family History Past Medical History?: Yes - Past Social History Smoking Status: Former Smoker - CARDIAC Hx Hypercholesterolemia: Yes Hx Hypertension: Yes Hx Pacemaker: No - PULMONARY Hx Asthma: Yes Hx Chronic Obstructive Pulmonary Disease (COPD): Yes - NEUROLOGICAL Other/Comment: Neuropathy - HEENT Hx HEENT Problems: No - RENAL Hx Chronic Kidney Disease: Yes - ENDOCRINE/METABOLIC Hx Diabetes Mellitus Type 2: Yes (on insulin) Other/Comment: hyperparathyroid - HEMATOLOGICAL/ONCOLOGICAL Hx Blood Transfusions: No Other/Comment: DVT at the age of 28yrs old. - INTEGUMENTARY Hx Dermatological Problems: No - MUSCULOSKELETAL/RHEUMATOLOGICAL Hx Falls: Yes - GASTROINTESTINAL Hx Gastroesophageal Reflux: Yes HX Swallowing Problems: Yes - GENITOURINARY/GYNECOLOGICAL Hx Genitourinary Disorders: No - PSYCHIATRIC Hx Substance Use: No - SURGICAL HISTORY Hx Coronary Artery Bypass Graft: Yes (quadruple) Hx Coronary Stent: Yes Hx Tonsillectomy: Yes - ANESTHESIA Hx Anesthesia: Yes Hx Anesthesia Reactions: No Hx Malignant Hyperthermia: No Meds Allergies/Adverse Reactions: Allergies Allergy/AdvReac Type Severity Reaction Status Date / Time Penicillins Allergy RASH Verified 05/19/17 22:33 shrimp AdvReac SWELLING Verified 05/21/17 10:24 - Medications Medications: Current Medications Amlodipine Besylate (Norvasc) 10 mg PO DAILY [facility] Aspirin (Ecotrin) 81 mg PO DAILY [facility] Last Admin: 05/21/17 10:21 Dose: 81 mg Dextrose (Dextrose 50% Inj) 0 ml IV STAT PRN; Protocol PRN Reason: Hypoglycemia Protocol Dextrose (Glutose 15) 0 gm PO ONCE PRN; Protocol PRN Reason: Hypoglycemia Protocol Dextrose (Dextrose 50% Inj) 0 ml IV STAT PRN; Protocol PRN Reason: Hypoglycemia Protocol Dextrose (Glutose 15) 0 gm PO ONCE PRN; Protocol PRN Reason: Hypoglycemia Protocol Enoxaparin Sodium (Lovenox) 30 mg SC DAILY [facility] PRN Reason: Protocol Last Admin: 05/21/17 09:57 Dose: 30 mg Famotidine (Pepcid) 20 mg PO BID [facility] Last Admin: 05/21/17 18:51 Dose: 20 mg Glucagon (Glucagen Diagnostic Kit) 0 mg IM STAT PRN; Protocol PRN Reason: Hypoglycemia Protocol Glucagon (Glucagen Diagnostic Kit) 0 mg IM STAT PRN; Protocol PRN Reason: Hypoglycemia Protocol Hydrochlorothiazide (Microzide) 12.5 mg PO ONCE [facility] Insulin Detemir (Levemir) 70 units SC HS [facility] Insulin Human Lispro (Humalog) 5 units SC AC [facility] Last Admin: 05/21/17 16:01 Dose: 5 units Insulin Human Regular (Humulin R) 0 units SC ACHS [facility] PRN Reason: Protocol Last Admin: 05/21/17 16:02 Dose: 5 units Metoprolol Tartrate (Lopressor) 100 mg PO DAILY [facility] Last Admin: 05/21/17 09:57 Dose: 100 mg Prednisone (Prednisone Tab) 40 mg PO DAILY [facility] Last Admin: 05/21/17 09:58 Dose: 40 mg Sitagliptin Phosphate (Januvia) 25 mg PO DAILY [facility] Last Admin: 05/21/17 09:56 Dose: 25 mg Results - Vital Signs Recent Vital Signs: Last Vital Signs Temp 98.7 F 05/21/17 15:49 Pulse 77 05/21/17 15:49 Resp 20 05/21/17 15:49 BP 162/87 H 05/21/17 15:49 Pulse Ox 99 05/21/17 15:49 - Labs Result Diagrams: 05/21/17 09:00 05/21/17 09:00 Labs: Laboratory Results - last 24 hr 05/20/17 05/20/17 05/20/17 22:41 23:14 23:14 WBC RBC Hgb Hct MCV MCH MCHC RDW Plt Count MPV Neut % (Auto) Lymph % (Auto) [place] % (Auto) Eos % (Auto) Baso % (Auto) Neut # (Auto) Lymph # (Auto) [place] # (Auto) Eos # (Auto) Baso # (Auto) Neutrophils % (Manual) Lymphocytes % (Manual) Monocytes % (Manual) Platelet Estimate RBC Morphology PT 11.7 INR 1.1 APTT 26.6 Sodium 138 Potassium 3.6 Chloride 103 Carbon Dioxide 18 L Anion Gap 21 H BUN 52 H Creatinine 3.2 H Est GFR ( Amer) 17 Est GFR (Non-Af Amer) 14 POC Glucose (mg/dL) 308 H Random Glucose 321 H Calcium 9.6 Total Bilirubin 0.4 AST 27 ALT 22 Alkaline Phosphatase 98 Troponin I 0.0240 NT-Pro-B Natriuret Pep 2190 H Total Protein 7.9 Albumin 3.9 Globulin 4.0 H Albumin/Globulin Ratio 1.0 05/20/17 05/21/17 05/21/17 23:14 01:53 06:21 WBC 15.2 H D RBC 3.88 Hgb 10.6 L Hct 31.5 L MCV 81.1 MCH 27.4 MCHC 33.8 RDW 14.4 Plt Count 297 MPV 9.9 Neut % (Auto) 87.3 H Lymph % (Auto) 8.4 L [place] % (Auto) 3.9 Eos % (Auto) 0.0 Baso % (Auto) 0.4 Neut # (Auto) 13.2 H Lymph # (Auto) 1.3 [place] # (Auto) 0.6 Eos # (Auto) 0.0 Baso # (Auto) 0.1 Neutrophils % (Manual) 88 H Lymphocytes % (Manual) 8 L Monocytes % (Manual) 4 Platelet Estimate Normal RBC Morphology Normal PT INR APTT Sodium Potassium Chloride Carbon Dioxide Anion Gap BUN Creatinine Est GFR ( Amer) Est GFR (Non-Af Amer) POC Glucose (mg/dL) 248 H 231 H Random Glucose Calcium Total Bilirubin AST ALT Alkaline Phosphatase Troponin I NT-Pro-B Natriuret Pep Total Protein Albumin Globulin Albumin/Globulin Ratio 05/21/17 05/21/17 05/21/17 09:00 09:00 11:01 WBC 18.1 H RBC 4.01 Hgb 10.6 L Hct 32.9 L MCV 82.0 MCH 26.4 L MCHC 32.1 L RDW 14.6 H Plt Count 309 MPV Neut % (Auto) Lymph % (Auto) [place] % (Auto) Eos % (Auto) Baso % (Auto) Neut # (Auto) Lymph # (Auto) [place] # (Auto) Eos # (Auto) Baso # (Auto) Neutrophils % (Manual) Lymphocytes % (Manual) Monocytes % (Manual) Platelet Estimate RBC Morphology PT INR APTT Sodium 141 Potassium 3.8 Chloride 105 Carbon Dioxide 20 L Anion Gap 20 BUN 45 H Creatinine 2.9 H Est GFR ( Amer) 19 Est GFR (Non-Af Amer) 16 POC Glucose (mg/dL) 362 H Random Glucose 239 H Calcium 9.6 Total Bilirubin AST ALT Alkaline Phosphatase Troponin I 0.0470 NT-Pro-B Natriuret Pep Total Protein Albumin Globulin Albumin/Globulin Ratio 05/21/17 16:07 WBC RBC Hgb Hct MCV MCH MCHC RDW Plt Count MPV Neut % (Auto) Lymph % (Auto) [place] % (Auto) Eos % (Auto) Baso % (Auto) Neut # (Auto) Lymph # (Auto) [place] # (Auto) Eos # (Auto) Baso # (Auto) Neutrophils % (Manual) Lymphocytes % (Manual) Monocytes % (Manual) Platelet Estimate RBC Morphology PT INR APTT Sodium Potassium Chloride Carbon Dioxide Anion Gap BUN Creatinine Est GFR ( Amer) Est GFR (Non-Af Amer) POC Glucose (mg/dL) Random Glucose Calcium Total Bilirubin AST ALT Alkaline Phosphatase Troponin I 0.0400 NT-Pro-B Natriuret Pep Total Protein Albumin Globulin Albumin/Globulin Ratio
[2017-05-21] MEDS ORDERED: Insulin Detemir 100 Units/ml Inj SC SCH (22:00)
--- NOTE | 2017-05-22 05:51 | CON ---
RENAL CONSULTATION DATE: 05/21/2017 LOCATION: The patient is located in room 417, bed 2. REQUESTED BY: Jesús West MD REASON FOR RENAL CONSULTATION: Increased BUN and creatinine, CKD 3 for further evaluation. HISTORY OF PRESENT ILLNESS: Mrs. Moreno is a 72-year-old elderly obese female with past medical history significant for longstanding hypertension for about 13 to 14 years, diabetes about 13 to 14 years, glaucoma, coronary artery disease status post CABG in 2011 status post stents placement in 2013 and chronic kidney disease, proteinuria, who was admitted with chief complaints of sudden onset of chest discomfort and shortness of breath while she was talking to the tutoring clinician and subsequently the patient was brought to the Emergency Room. One day prior to the admission, the patient came to the Emergency Room with chief complaints of sudden onset of difficulty in breathing and swelling of the face after she ate shrimp and subsequently the patient was given steroids and Benadryl as per the patient and she was discharged home. Next day, the patient was admitted with shortness of breath and chest discomfort while she was talking to the tutoring clinician and denies any radiation of the pain. Denies any headache or dizziness. Denies any fever. Denies any cough. No swelling of the legs. No nausea, vomiting or diarrhea. Renal consult was requested for evaluation of increased BUN and creatinine. PAST MEDICAL HISTORY: Significant for hypertension for 13 to 14 years, diabetes for 13 to 14 years, glaucoma, coronary artery disease, chronic kidney disease and diabetic neuropathy. PAST SURGICAL HISTORY: Status post CABG and also surgery for the glaucoma status post stents in 2013 and CABG in 2011. ALLERGIES: ALLERGIC TO PENICILLIN AND QUESTIONABLE ALLERGIC TO SHRIMP NOW. SOCIAL HISTORY: Denies any smoking, alcohol, drugs. PERSONAL HISTORY: She is and she has 5 children. FAMILY HISTORY: Not significant. CURRENT MEDICATIONS: Include as follows; Ecotrin 81 mg p.o. daily, Humalog 5 units subq a.c., Januvia 25 mg p.o. daily, Levemir 70 units subq at bedtime, Lopressor 100 mg p.o. daily, Lovenox 30 mg subq daily, hydrochlorothiazide on hold 12.5 mg daily, amlodipine 10 mg p.o. daily, Pepcid 20 mg p.o. b.i.d. and prednisone 40 mg p.o. daily. Pneumococcal vaccine was given on 01/15/2016. REVIEW OF SYSTEMS: Significant for chest discomfort and shortness of breath. All other review of systems are reviewed and negative. PHYSICAL EXAMINATION: As follows: GENERAL: Mrs. Moreno is a 72-year-old elderly obese female moderately-built, moderately-nourished, not in acute distress. VITAL SIGNS: Blood pressure 162/87, pulse 77, respirations 20, temperature 98.7 and saturation 99%. Height 5 feet 6 inches, weight is 160 pounds. BMI 25.8. HEENT: Pupils normal and reactive to light and accommodation. Conjunctivae pink. Sclerae anicteric. Tongue is moist. Trachea is midline. LUNGS: Symmetric on both sides. Bilateral breath sounds present. Bilateral basal crackles present. CVS: [place] at the fifth intercostal space, midclavicular line. S1 and S2 audible. No murmur or gallop. The patient has midsternal scar present from the previous CABG. ABDOMEN: Normal in appearance, soft and tympanic. No guarding. No rigidity. No hepatosplenomegaly. [employer] ADJUSTER: The patient is alert, awake and oriented x3. Nonfocal neuro examination. Cranial nerves II through XII grossly intact. Sensory and motor system is within normal limits. EXTREMITIES: No cyanosis. No clubbing. No edema. LABORATORY DATA: Include as follows; WBC 18.1, hemoglobin 10.6, hematocrit 32.9 and platelets 319. Sodium 141, potassium 3.8, chloride 105, CO2 of 20, BUN 45, creatinine 2.9, glucose 239 and calcium 9.6. Troponin 0.04 and 0.04. ProBNP is 2190. Troponin as of 05/20/2017 is 0.024. BUN and creatinine 52 and 3.2. GFR is 17. H and H 10.6 and 31.5, WBC 15.2 and 297. Chest x-ray as of 05/20/2017; impression no active disease. Review of the labs from the previous visits, ultrasound of the kidneys, right kidney 9.7 x 5.8 x 4.3 cm, left kidney 10 x 5.7 x 5.7 cm and the patient has small cyst in the lower pole of the left kidney measuring 1.1 x 1.2 x 1.5 cm and other the reports; PAPO screening was negative as of 08/18/2016 and compliment level C3 was 148, C4 is 44.6, and hepatitis B serology as of 08/18/2016 was negative. Surface antibody was negative. Hepatitis C antibody was also negative as of 06/16/2015. Other laboratory data from the previous admissions, serum creatinine is 1.6 as of 02/18/2012 and as of 11/19/2016 BUN and creatinine 36/2.4 with hemoglobin A1c 9.6. Urinalysis; protein about 100, glucose more than 500, ketones negative and blood negative as of 11/19/2016. ASSESSMENT AND PLAN: In summary, Mrs. Moreno is about 72-year-old elderly female with past medical history significant for longstanding hypertension, diabetes, coronary artery disease status post coronary artery bypass grafting, status post stents and chronic kidney disease, diabetic neuropathy with baseline creatinine about 1.6 in 2011 and 10/2016 with a baseline creatinine about 2.4 , was admitted with chest discomfort and shortness of breath, sudden onset. 1. Chronic kidney disease, stage 4 most likely secondary to diabetic nephropathy, cannot rule out underlying hypertension and atherosclerosis. 2. Rule out congestive heart failure. 3. Rule out chronic obstructive pulmonary disease, asthma. 4. Hypertension. 5. Uncontrolled diabetes. 6. Rule out acute coronary syndrome as the patient has dyspnea on exertion and difficult to ambulate, cannot walk even from one room to another room, rule out coronary artery disease. Followup with Cardiology. We will check phosphorus and PTH intact level and BMP in a.m. Consider Cardiology evaluation. Follow up with Dr. López. Thank you for allowing me to participate in your patient's care. Saida Reid MD
[2017-05-22 06:14] LABS: HEMOGLOBIN 10.3 g/dL (12.0-16.0); MEAN CORPUSCULAR HEMOGLOBIN 26.5 pg (27.0-31.0); MEAN CORPUSCULAR HGB CONC 32.8 g/dL (33.0-37.0); RBC 3.88 Mil/uL (3.80-5.20); RED CELL DISTRIBUTION WIDTH 14.1 % (11.5-14.5); WHITE BLOOD COUNT 16.6 K/uL (4.8-10.8)
[2017-05-22] MEDS: Insulin Regular 100 units/ml SC SCH (06:34)
[2017-05-22 06:37] LABS: CALCIUM 9.6 mg/dL (8.4-10.2)
[2017-05-22] MEDS: Enoxaparin 30 mg Syringe SC SCH (08:25)
[2017-05-22] MEDS: Insulin Lispro (humaLOG) 100 Units/ml Inj SC SCH (08:26)
[2017-05-22 08:27] VITALS: BP 194/91
[2017-05-22 08:49] VITALS: RESP 20; TEMP 97.8; O2SAT 99
--- NOTE | 2017-05-22 09:17 | PN ---
DATE: 05/22/2017 SUBJECTIVE: The patient is seen and examined. The patient is seen for Dr. Larose while he is away. The patient feels okay. Denies any chest pain or shortness of breath. The patient is ambulating in room. No new complaints. No specific issues. past. PHYSICAL EXAMINATION: GENERAL: The patient is in no acute distress. VITAL SIGNS: Stable. HEART: S1 and S2, normal and regular. LUNGS: Good bilateral air exchange. ABDOMEN: Soft and nontender. No organomegaly. No fluid. Bowel sounds are plus and normal. EXTREMITIES: No edema, no calf swelling. No tenderness. No acute ischemia. JOURNALISM INTERN: Exam is essentially unchanged. DIAGNOSTIC DATA: Available diagnostic data reviewed. Telemetry monitoring does not show any significant arrhythmia. PLAN: Plan as ordered. Case and plan discussed with the patient and the patient's relative at bedside. Fabiano Ley MD
--- NOTE | 2017-05-22 09:55 | CP.PCM.CON ---
History of Present Illness - History of Present Illness History of Present Illness: The patient left the hospital AMA prior to being seen. Past Patient History - Infectious Disease Hx of Infectious Diseases: None - Tetanus Immunizations Tetanus Immunization: Unknown - Past Medical History & Family History Past Medical History?: Yes - Past Social History Smoking Status: Former Smoker - CARDIAC Hx Hypercholesterolemia: Yes Hx Hypertension: Yes Hx Pacemaker: No - PULMONARY Hx Asthma: Yes Hx Chronic Obstructive Pulmonary Disease (COPD): Yes - NEUROLOGICAL Other/Comment: Neuropathy - HEENT Hx HEENT Problems: No - RENAL Hx Chronic Kidney Disease: Yes - ENDOCRINE/METABOLIC Hx Diabetes Mellitus Type 2: Yes (on insulin) Other/Comment: hyperparathyroid - HEMATOLOGICAL/ONCOLOGICAL Hx Blood Transfusions: No Other/Comment: DVT at the age of 28yrs old. - INTEGUMENTARY Hx Dermatological Problems: No - MUSCULOSKELETAL/RHEUMATOLOGICAL Hx Falls: Yes - GASTROINTESTINAL Hx Gastroesophageal Reflux: Yes HX Swallowing Problems: Yes - GENITOURINARY/GYNECOLOGICAL Hx Genitourinary Disorders: No - PSYCHIATRIC Hx Substance Use: No - SURGICAL HISTORY Hx Coronary Artery Bypass Graft: Yes (quadruple) Hx Coronary Stent: Yes Hx Tonsillectomy: Yes - ANESTHESIA Hx Anesthesia: Yes Hx Anesthesia Reactions: No Hx Malignant Hyperthermia: No Meds Allergies/Adverse Reactions: Allergies Allergy/AdvReac Type Severity Reaction Status Date / Time Penicillins Allergy RASH Verified 05/19/17 22:33 shrimp AdvReac SWELLING Verified 05/21/17 10:24 - Medications Medications: Current Medications Amlodipine Besylate (Norvasc) 10 mg PO DAILY [facility] Last Admin: 05/22/17 08:26 Dose: 10 mg Aspirin (Ecotrin) 81 mg PO DAILY [facility] Last Admin: 05/22/17 08:25 Dose: 81 mg Dextrose (Dextrose 50% Inj) 0 ml IV STAT PRN; Protocol PRN Reason: Hypoglycemia Protocol Dextrose (Glutose 15) 0 gm PO ONCE PRN; Protocol PRN Reason: Hypoglycemia Protocol Dextrose (Dextrose 50% Inj) 0 ml IV STAT PRN; Protocol PRN Reason: Hypoglycemia Protocol Dextrose (Glutose 15) 0 gm PO ONCE PRN; Protocol PRN Reason: Hypoglycemia Protocol Enoxaparin Sodium (Lovenox) 30 mg SC DAILY [facility] PRN Reason: Protocol Last Admin: 05/22/17 08:25 Dose: 30 mg Famotidine (Pepcid) 20 mg PO BID [facility] Last Admin: 05/22/17 08:26 Dose: 20 mg Glucagon (Glucagen Diagnostic Kit) 0 mg IM STAT PRN; Protocol PRN Reason: Hypoglycemia Protocol Glucagon (Glucagen Diagnostic Kit) 0 mg IM STAT PRN; Protocol PRN Reason: Hypoglycemia Protocol Hydrochlorothiazide (Microzide) 12.5 mg PO ONCE [facility] Insulin Detemir (Levemir) 70 units SC HS [facility] Last Admin: 05/21/17 21:11 Dose: 70 units Insulin Human Lispro (Humalog) 5 units SC AC [facility] Last Admin: 05/22/17 08:26 Dose: Not Given Insulin Human Regular (Humulin R) 0 units SC ACHS [facility] PRN Reason: Protocol Last Admin: 05/22/17 06:34 Dose: Not Given Metoprolol Tartrate (Lopressor) 100 mg PO DAILY [facility] Last Admin: 05/22/17 08:26 Dose: 100 mg Prednisone (Prednisone Tab) 40 mg PO DAILY [facility] Last Admin: 05/21/17 09:58 Dose: 40 mg Sitagliptin Phosphate (Januvia) 25 mg PO DAILY [facility] Last Admin: 05/22/17 08:26 Dose: 25 mg Results - Vital Signs Recent Vital Signs: Last Vital Signs Temp 97.8 F 05/22/17 08:00 Pulse 63 05/22/17 08:26 Resp 20 05/22/17 08:00 BP 194/91 H 05/22/17 08:26 Pulse Ox 99 05/22/17 08:00 - Labs Result Diagrams: 05/22/17 05:28 05/22/17 05:28 Labs: Laboratory Results - last 24 hr 05/21/17 05/21/17 05/21/17 11:01 15:48 16:07 WBC RBC Hgb Hct MCV MCH MCHC RDW Plt Count Sodium Potassium Chloride Carbon Dioxide Anion Gap BUN Creatinine Est GFR ( Amer) Est GFR (Non-Af Amer) POC Glucose (mg/dL) 362 H 390 H Random Glucose Calcium Phosphorus Troponin I 0.0400 05/21/17 05/22/17 05/22/17 21:02 05:28 05:28 WBC 16.6 H RBC 3.88 Hgb 10.3 L Hct 31.4 L MCV 81.0 MCH 26.5 L MCHC 32.8 L RDW 14.1 Plt Count 290 Sodium 141 Potassium 3.6 Chloride 105 Carbon Dioxide 23 Anion Gap 17 BUN 47 H Creatinine 2.8 H Est GFR ( Amer) 20 Est GFR (Non-Af Amer) 17 POC Glucose (mg/dL) 381 H Random Glucose 176 H Calcium 9.6 Phosphorus 3.9 Troponin I 05/22/17 06:03 WBC RBC Hgb Hct MCV MCH MCHC RDW Plt Count Sodium Potassium Chloride Carbon Dioxide Anion Gap BUN Creatinine Est GFR ( Amer) Est GFR (Non-Af Amer) POC Glucose (mg/dL) 137 H Random Glucose Calcium Phosphorus Troponin I Assessment & Plan (1) Multiple pulmonary nodules determined by computed tomography of lung Status: Chronic Priority: High - Date & Time Date: 05/22/17 Time: 09:54
--- NOTE | 2017-05-22 10:12 | CP.PCM.PN ---
Subjective - Date & Time of Evaluation Date of Evaluation: 05/22/17 Time of Evaluation: 09:50 - Subjective Subjective: Chest pain free over last 24 hrs BP 138/70 mm Hg No signs of CHF Troponin levels normal ( indicate no myocyte injury) ACS ruled out May go home today. Objective - Vital Signs/Intake and Output Vital Signs (last 24 hours): Temp Pulse Resp BP Pulse Ox 97.8 F 63 20 194/91 H 99 05/22/17 08:00 05/22/17 08:26 05/22/17 08:00 05/22/17 08:26 05/22/17 08:00 - Medications Medications: Current Medications Amlodipine Besylate (Norvasc) 10 mg PO DAILY [facility] Last Admin: 05/22/17 08:26 Dose: 10 mg Aspirin (Ecotrin) 81 mg PO DAILY [facility] Last Admin: 05/22/17 08:25 Dose: 81 mg Dextrose (Dextrose 50% Inj) 0 ml IV STAT PRN; Protocol PRN Reason: Hypoglycemia Protocol Dextrose (Glutose 15) 0 gm PO ONCE PRN; Protocol PRN Reason: Hypoglycemia Protocol Dextrose (Dextrose 50% Inj) 0 ml IV STAT PRN; Protocol PRN Reason: Hypoglycemia Protocol Dextrose (Glutose 15) 0 gm PO ONCE PRN; Protocol PRN Reason: Hypoglycemia Protocol Enoxaparin Sodium (Lovenox) 30 mg SC DAILY [facility] PRN Reason: Protocol Last Admin: 05/22/17 08:25 Dose: 30 mg Famotidine (Pepcid) 20 mg PO BID [facility] Last Admin: 05/22/17 08:26 Dose: 20 mg Glucagon (Glucagen Diagnostic Kit) 0 mg IM STAT PRN; Protocol PRN Reason: Hypoglycemia Protocol Glucagon (Glucagen Diagnostic Kit) 0 mg IM STAT PRN; Protocol PRN Reason: Hypoglycemia Protocol Hydrochlorothiazide (Microzide) 12.5 mg PO ONCE [facility] Insulin Detemir (Levemir) 70 units SC HS [facility] Last Admin: 05/21/17 21:11 Dose: 70 units Insulin Human Lispro (Humalog) 5 units SC AC [facility] Last Admin: 05/22/17 08:26 Dose: Not Given Insulin Human Regular (Humulin R) 0 units SC ACHS [facility] PRN Reason: Protocol Last Admin: 05/22/17 06:34 Dose: Not Given Metoprolol Tartrate (Lopressor) 100 mg PO DAILY [facility] Last Admin: 05/22/17 08:26 Dose: 100 mg Prednisone (Prednisone Tab) 40 mg PO DAILY [facility] Last Admin: 05/21/17 09:58 Dose: 40 mg Sitagliptin Phosphate (Januvia) 25 mg PO DAILY [facility] Last Admin: 05/22/17 08:26 Dose: 25 mg - Labs Labs: 05/22/17 05:28 05/22/17 05:28 PT 11.7 Seconds (9.8-13.1) 05/20/17 23:14 INR 1.1 (0.9-1.2) 05/20/17 23:14 APTT 26.6 Seconds (25.6-37.1) 05/20/17 23:14
[2017-05-22 10:32] VITALS: PULSE 73
[2017-05-22 16:55] LABS: SQUAMOUS EPITHIAL < 1 /hpf (0-5); URINE BACTERIA RARE (<OCC); URINE BILIRUBIN NEGATIVE (NEGATIVE); URINE BLOOD SMALL (NEGATIVE); URINE CLARITY CLEAR (Clear); URINE COLOR STRAW (YELLOW); URINE GLUCOSE (UA) >=500 mg/dL (Normal); URINE LEUKOCYTE ESTERASE NEG Leu/uL (Negative); URINE NITRATE NEGATIVE (NEGATIVE); URINE PROTEIN 100 mg/dL (NEGATIVE); URINE UROBILINOGEN 0.2-1.0 mg/dL (0.2-1.0)
--- NOTE | 2017-05-22 18:14 | CARD ---
APPROVED REPORT EKG Measurement Heart [id number] <Conclusion> Sinus tachycardia with premature atrial complexes ST & T wave abnormality, consider inferolateral ischemia Abnormal ECG
== END 2017-05-22 10:31 | disposition left against medical advice (07) ==
LOC: H.ER 21:10 → H.ERHOLD 05-21 00:10 → H.TEL 05-21 01:50
PROVIDERS: ADMIT Family Medicine Geriatric Medicine; ATTEND Family Medicine Geriatric Medicine
DX: R07.89 Other chest pain (principal); I25.10 Atherosclerotic heart disease of native coronary artery without angina pectoris; I51.7 Cardiomegaly; J44.9 Chronic obstructive pulmonary disease, unspecified; K21.9 Gastro-esophageal reflux disease without esophagitis; M81.0 Age-related osteoporosis without current pathological fracture; E11.21 Type 2 diabetes mellitus with diabetic nephropathy; N18.4 Chronic kidney disease, stage 4 (severe); Z79.02 Long term (current) use of antithrombotics/antiplatelets; Z79.82 Long term (current) use of aspirin; Z87.891 Personal history of nicotine dependence; Z95.1 Presence of aortocoronary bypass graft; Z95.5 Presence of coronary angioplasty implant and graft; E66.9 Obesity, unspecified; Z79.84 Long term (current) use of oral hypoglycemic drugs; E11.22 Type 2 diabetes mellitus with diabetic chronic kidney disease; E11.40 Type 2 diabetes mellitus with diabetic neuropathy, unspecified; E11.65 Type 2 diabetes mellitus with hyperglycemia; E21.3 Hyperparathyroidism, unspecified; E78.00 Pure hypercholesterolemia, unspecified; E78.5 Hyperlipidemia, unspecified; H40.9 Unspecified glaucoma; I12.9 Hypertensive chronic kidney disease with stage 1 through stage 4 chronic kidney disease, or unspecified chronic kidney disease
CPT/HCPCS: 36415; 71045; 80048; 80053; 81003; 82948; 83880; 83970; 84100; 84484; 85025; 85027; 85610; 85730; 93005; 96360; 96361; 99285; G0378; J1650; J7040

== ENCOUNTER 2017-05-29 20:06 | Emergency (ER) | payer MEDICARE, BC ==
[2017-05-29 20:06] VITALS: BMI 30.1
[2017-05-29 20:31] VITALS: RESP 16
[2017-05-29 21:11] LABS: BASO # 0.1 K/uL (0.0-0.2); BASO % 0.8 % (0.0-2.0); EOS # 0.3 K/uL (0.0-0.7); EOS % 2.3 % (0.0-4.0); HEMOGLOBIN 10.5 g/dL (12.0-16.0); LYMPH # 2.6 K/uL (1.0-4.3); MEAN CELL VOLUME 82.3 fl (81.0-99.0); MEAN CORPUSCULAR HEMOGLOBIN 26.7 pg (27.0-31.0); MEAN CORPUSCULAR HGB CONC 32.4 g/dL (33.0-37.0); MEAN PLATELET VOLUME 9.2 fl (7.2-11.7); MONO % 9.3 % (0.0-10.0); NEUT # 7.2 K/uL (1.8-7.0); NEUT % 64.6 % (50.0-75.0); NRBC % 0.1 % (0.0-0.0); RBC 3.92 Mil/uL (3.80-5.20); RED CELL DISTRIBUTION WIDTH 14.6 % (11.5-14.5); WHITE BLOOD COUNT 11.1 K/uL (4.8-10.8)
[2017-05-29 21:21] LABS: CALCIUM 9.4 mg/dL (8.4-10.2)
[2017-05-29 21:30] LABS: ALB/GLOB RATIO 0.9 (1.0-2.1); ALBUMIN 3.6 g/dL (3.5-5.0)
--- NOTE | 2017-05-29 21:39 | ED PDOC ---
"HPI: Abdomen Chief Complaint (Provider): Abdominal Pain History Per: Patient History/Exam Limitations: no limitations Onset/Duration Of Symptoms: Intermittent Episodes Outside of [place] travel?: No Current Symptoms Are (Timing): Intermittent Episodes Severity: Mild Pain Scale Rating Of: 3 Location Of Pain/Discomfort: RUQ Quality Of Discomfort: Sharp, Cramping Associated Symptoms: denies: Fever, Chills, Nausea, Vomiting, Diarrhea, Loss Of Appetite, Back Pain, Chest Pain, Urinary Symptoms Exacerbating Factors: Other (laying down) <Landy Comer - Last Filed: 05/30/17 00:42> <Santo Jj - Last Filed: 05/30/17 19:37> Time Seen by Provider: 05/29/17 20:33 Chief Complaint (Nursing): Abdominal Pain Additional Complaint(s): 72 year old female presents to ED with complaints of intermittent episodes of RUQ pain and has a past medical history of gallstones, DM (type 2), HTN, COPD, asthma, and cirrhosis. Describes pain as sharp and notes that it is worse when lying down. States that her gallstones have never caused her pain in the past and was told that she is not a surgical candidate for removal secondary to her cardiac history. 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 (-) fever, nausea, vomiting, diarrhea, SOB, chest pain, headache, or urinary symptoms. PCP: Dr. Jesús Ellis Rn Renal: Dr. López (Landy Comer) Supervising Attending Note - Attestation: I have personally seen and examined this patient.: Yes I have fully participated in the care of the patient.: Yes I have reviewed all pertinent clinical information: Yes <Santo Jj - Last Filed: 05/30/17 19:37> Past Medical History Reviewed: Historical Data, Nursing Documentation, Vital Signs - Medical History PMH: Asthma, CAD, COPD, Diabetes (type II), HTN, Hypercholesterolemia, Kidney Stones, Osteoporosis, Chronic Kidney Disease - Surgical History Surgical History: CABG (quadruple), Coronary Stent (x2), Tonsillectomy Denies: Pacemaker - Family History Family History: States: Unknown Family Hx - Living Arrangements Living Arrangements: With Family - Social History Ex-Smoker (has not smoked in the last 12 months): Yes (quit 20 year ago) Alcohol: None Drugs: Denies <Rosa Comerdawna Reyes - Last Filed: 05/30/17 00:42> <ParvizSanto - Last Filed: 05/30/17 19:37> Vital Signs: Last Vital Signs Temp 98.7 F 05/30/17 00:10 Pulse 76 05/30/17 00:10 Resp 16 05/30/17 00:10 BP 146/77 05/30/17 00:10 Pulse Ox 97 05/30/17 00:54 - Home Medications Home Medications: Ambulatory Orders Medication Instructions Recorded Insulin Glargine,Hum.rec.anlog 70 units SQ HS 01/15/16 [Toujeo Solostar] Metoprolol Tartrate [Lopressor] 100 mg PO DAILY 01/15/16 SITagliptin [Januvia] 25 mg PO DAILY 01/15/16 amLODIPine [Norvasc] 5 mg PO DAILY 01/15/16 Albuterol Sulfate [Proair Hfa] 2 puff IH Q4H PRN 11/18/16 Aspirin [Ecotrin] 81 mg PO DAILY 11/18/16 Insulin Lispro [Humalog Kwikpen 24 unit SC BRK #0 11/22/16 U-200] Famotidine [Pepcid] 20 mg PO BID #8 tab 05/20/17 Fluticasone Propionate [Flovent 110 mcg PO ONCE 05/20/17 Hfa] Hydrochlorothiazide [Microzide] 12.5 mg PO ONCE 05/20/17 Losartan [Cozaar] 50 mg PO ONCE 05/20/17 Prednisone [Deltasone] 40 mg PO DAILY #8 tablet 05/20/17 - Allergies Allergies/Adverse Reactions: Allergies Allergy/AdvReac Type Severity Reaction Status Date / Time Penicillins Allergy RASH Verified 05/19/17 22:33 shrimp AdvReac SWELLING Verified 05/21/17 10:24 Review of Systems ROS Statement: Except As Marked, All Systems Reviewed And Found Negative Constitutional: Negative for: Fever, Chills Cardiovascular: Negative for: Chest Pain Respiratory: Negative for: Cough, Shortness of Breath Gastrointestinal: Positive for: Abdominal Pain (intermittent RUQ pain). Negative for: Nausea, Vomiting, Diarrhea Genitourinary Female: Negative for: Dysuria, Frequency, Incontinence, Hematuria Skin: Negative for: Rash Neurological: Negative for: Headache <Landy Comer - Last Filed: 05/30/17 00:42> Physical Exam - Reviewed Nursing Documentation Reviewed: Yes Vital Signs Reviewed: Yes - Physical Exam Appears: Positive for: Non-toxic, No Acute Distress Head Exam: Positive for: ATRAUMATIC, NORMOCEPHALIC Skin: Positive for: Normal Color, Warm, Dry Eye Exam: Positive for: EOMI, PERRL Neck: Positive for: Supple Cardiovascular/Chest: Positive for: Regular Rate, Rhythm. Negative for: Bradycardia, Tachycardia Respiratory: Positive for: Normal Breath Sounds. Negative for: Decreased Breath Sounds, Accessory Muscle Use, Respiratory Distress Gastrointestinal/Abdominal: Positive for: Soft, Tenderness (mild RUQ tenderness , (+) Oviedo's sign upon deep palpation). Negative for: Mass, Distended, Guarding, Rebound Back: Negative for: L CVA Tenderness, R CVA Tenderness, Vertebral Tenderness Extremity: Positive for: Normal ROM. Negative for: Deformity Neurologic/Psych: Positive for: Alert, Oriented, Gait (steady in ED). Negative for: Motor/Sensory Deficits <Landy Comer - Last Filed: 05/30/17 00:42> - Laboratory Results Result Diagrams: 05/29/17 21:07 05/29/17 21:07 - ECG O2 Sat by Pulse Oximetry: 97 (RA) Pulse Ox Interpretation: Normal <Landy Comer - Last Filed: 05/30/17 00:42> - Laboratory Results Result Diagrams: 05/29/17 21:07 05/29/17 21:07 <Santo Jj - Last Filed: 05/30/17 19:37> Medical Decision Making <Landy Comer - Last Filed: 05/30/17 00:42> <Santo Jj - Last Filed: 05/30/17 19:37> Medical Decision Makin Initial impression: biliary colic, gallstones Initial plan: * Labs * Lipase * UA * US ABDOMEN COMPLETE Patient denied pain medication. Will consult Dr. West. [address] West, who is agreeable to ED plan. Patient pending lab and U/S results. 2199 Lab results reviewed. Elevated renal function consistent with prior, recent visits. Patient pending U/S and urinalysis. On re-evaluation, patient resting comfortably with granddaughter at bedside. On exam, patient remains AAOx3, in no acute distress. Lungs clear to auscultation, cardiac RRR, abdomen soft with mild tenderness to RUQ, repeat neuro exam shows no focal findings. Patient continues to deny nausea, vomiting, or diarrhea. Patient continues to decline pain medication. 2330 U/S reviewed, report follows. Awaiting call back from Dr West for further disposition. EXAM: US Abdomen Complete EXAM DATE/TIME: 05/29/2017 8:53 PM CLINICAL HISTORY: 72 years old, female; Pain; Abdominal pain; Epigastric; Additional info: Ruq pain, history of gallstones TECHNIQUE: Real-time ultrasound of the abdomen (complete) with image documentation. COMPARISON: US - RENAL 2015-05-19 10:08 FINDINGS: There is a negative sonographic Oviedo's sign per registered vascular technologist (rvt). There is a small amount of sludge or stones within the gallbladder. No pericholecystic fluid. The gallbladder wall measures 2 mm which is within normal limits. The common bile duct measures 5 mm which is within normal limits. The liver is increased in echogenicity consistent with fatty infiltration. The spleen is normal and measures 7 mm. The visualized pancreas is normal. The pancreatic duct measures 3 mm. No hydronephrosis. Both kidneys measure approximately 9 cm in length. IMPRESSION: No evidence of cholecystitis. Thank you for allowing us to participate in the care of your patient. RADHA WALTER | Final Radiology Report CONFIDENTIALITY STATEMENT This report is intended only for use by the referring physician, and only in accordance with law. If you received this in error, call [phone]. Page 2 of 2 Dictated and Authenticated by: Leah Hannah MD 05/29/2017 11:28 PM Eastern Time ([place] & [place]) 0005 Lab and U/S results discussed with Dr West who is agreeable to discharge and outpatient follow up with himself. On re-evaluation, patient reports improvement of symptoms, denies any abdominal discomfort at this time. On exam, patient remains AAOx3, in no acute distress. Lungs clear to auscultation, cardiac RRR, abdomen soft, non-tender, repeat neuro exam shows no focal findings. Based on history, exam and diagnostic results, plan will be for outpatient follow up. Patient instructed to follow-up with pmd / referral provided / the clinic in 1- 2 days without fail. Return to the emergency room at any time for any new or worsening symptoms. Patient states she fully agrees with and understands discharge instructions. States that she agrees with the plan and disposition. Verbalized and repeated discharge instructions and plan. I have given the patient opportunity to ask any additional questions. Scribe Attestation: Documented by Maddy Easley acting as a scribe for Landy Comer PA-C. Scribe Attestation: All medical record entries made by the Scribe were at my direction and personally dictated by me. I have reviewed the chart and agree that the record accurately reflects my personal performance of the history, physical exam, medical decision making, and the department course for this patient. I have also personally directed, reviewed, and agree with the discharge instructions and disposition. (Landy Comer) Disposition - Patient ED Disposition Is Patient to be Admitted: No Counseled Patient/Family Regarding: Studies Performed, Diagnosis, Need For Followup - Disposition Disposition: Routine/Home Disposition Time: 00:11 - POA Present On Arrival: None <Landy Comer - Last Filed: 05/30/17 00:42> <Santo Jj - Last Filed: 05/30/17 19:37> - Clinical Impression Clinical Impression: Gallstones without obstruction of gallbladder, Abdominal discomfort - Disposition Referrals: Jesús West MD [Staff Provider] - Condition: STABLE Instructions: Gallstones, Acute Abdomen (Belly Pain) Forms: [employer] (Maldivian) Print Language: CHILEAN - Lab Results Lab Results: 05/29/17 05/29/17 05/29/17 22:12 21:07 21:07 WBC 11.1 H RBC 3.92 Hgb 10.5 L Hct 32.3 L MCV 82.3 MCH 26.7 L MCHC 32.4 L RDW 14.6 H Plt Count 296 MPV 9.2 Neut % (Auto) 64.6 Lymph % (Auto) 23.0 [place] % (Auto) 9.3 Eos % (Auto) 2.3 Baso % (Auto) 0.8 Neut # (Auto) 7.2 H Lymph # (Auto) 2.6 [place] # (Auto) 1.0 H Eos # (Auto) 0.3 Baso # (Auto) 0.1 Sodium 141 Potassium 4.3 Chloride 106 Carbon Dioxide 20 L Anion Gap 19 BUN 45 H Creatinine 3.1 H Est GFR ( Amer) 18 Est GFR (Non-Af Amer) 15 Random Glucose 238 H Calcium 9.4 Total Bilirubin 0.6 AST 28 ALT 26 Alkaline Phosphatase 86 Total Protein 7.5 Albumin 3.6 Globulin 4.0 H Albumin/Globulin Ratio 0.9 L Lipase 78 Urine Color Yellow Urine Clarity Clear Urine pH 6.0 Ur Specific [place] 1.011 Urine Protein >=500 Urine Glucose (UA) 150 Urine Ketones Negative Urine Blood Small Urine Nitrate Negative Urine Bilirubin Negative Urine Urobilinogen 0.2-1.0 Ur Leukocyte Esterase Neg Urine RBC (Auto) 3 Urine Microscopic WBC 1"
[2017-05-29 22:19] LABS: URINE BILIRUBIN NEGATIVE (NEGATIVE); URINE BLOOD SMALL (NEGATIVE); URINE CLARITY CLEAR (Clear); URINE COLOR YELLOW (YELLOW); URINE GLUCOSE (UA) 150 mg/dL (Normal); URINE LEUKOCYTE ESTERASE NEG Leu/uL (Negative); URINE PROTEIN >=500 mg/dL (NEGATIVE); URINE UROBILINOGEN 0.2-1.0 mg/dL (0.2-1.0)
--- NOTE | 2017-05-29 23:28 | US ---
EXAM: US Abdomen Complete EXAM DATE/TIME: 05/29/2017 8:53 PM CLINICAL HISTORY: 72 years old, female; Pain; Abdominal pain; Epigastric; Additional info: Ruq pain, history of gallstones TECHNIQUE: Real-time ultrasound of the abdomen (complete) with image documentation. COMPARISON: US - RENAL 2015-05-19 10:08 FINDINGS: There is a negative sonographic Oviedo's sign per cytotechnologist. There is a small amount of sludge or stones within the gallbladder. No pericholecystic fluid. The gallbladder wall measures 2 mm which is within normal limits. The common bile duct measures 5 mm which is within normal limits. The liver is increased in echogenicity consistent with fatty infiltration. The spleen is normal and measures 7 mm. The visualized pancreas is normal. The pancreatic duct measures 3 mm. No hydronephrosis. Both kidneys measure approximately 9 cm in length. IMPRESSION: No evidence of cholecystitis.
[2017-05-30 00:11] VITALS: BP 146/77; PULSE 76; TEMP 98.7
[2017-05-30 00:14] VITALS: O2SAT 97
== END 2017-05-30 00:18 | disposition home or self-care (01) ==
LOC: H.ER 20:06
DX: K80.70 Calculus of gallbladder and bile duct without cholecystitis without obstruction (principal); E11.22 Type 2 diabetes mellitus with diabetic chronic kidney disease; E78.00 Pure hypercholesterolemia, unspecified; I12.9 Hypertensive chronic kidney disease with stage 1 through stage 4 chronic kidney disease, or unspecified chronic kidney disease; Z79.4 Long term (current) use of insulin; Z79.82 Long term (current) use of aspirin; Z88.0 Allergy status to penicillin; Z95.1 Presence of aortocoronary bypass graft; Z95.5 Presence of coronary angioplasty implant and graft

== ENCOUNTER 2018-01-13 09:29 | Inpatient (IN) | payer MEDICARE, BC ==
[2018-01-13 09:29] VITALS: BMI 30.1
[2018-01-13] MEDS ORDERED: Sodium Chloride 0.9% 1,000 ML IV STA (11:00)
[2018-01-13 11:40] LABS: BASO # 0.1 K/uL (0.0-0.2); EOS # 0.2 K/uL (0.0-0.7); EOS % 2.2 % (0.0-4.0); HEMOGLOBIN 11.1 g/dL (12.0-16.0); LYMPH # 1.7 K/uL (1.0-4.3); MEAN CELL VOLUME 81.3 fl (81.0-99.0); MEAN CORPUSCULAR HEMOGLOBIN 27.4 pg (27.0-31.0); MEAN CORPUSCULAR HGB CONC 33.8 g/dL (33.0-37.0); MEAN PLATELET VOLUME 9.5 fl (7.2-11.7); MONO # 0.5 K/uL (0.0-0.8); MONO % 5.1 % (0.0-10.0); NEUT # 7.9 K/uL (1.8-7.0); NEUT % 75.7 % (50.0-75.0); NRBC % 0.1 % (0.0-0.0); RBC 4.04 Mil/uL (3.80-5.20); RED CELL DISTRIBUTION WIDTH 14.1 % (11.5-14.5); WHITE BLOOD COUNT 10.5 K/uL (4.8-10.8)
[2018-01-13 11:59] LABS: TROPONIN I 0.018 ng/mL (0.00-0.120)
--- NOTE | 2018-01-13 12:00 | ED PDOC ---
HPI: Back Time Seen by Provider: 01/13/18 10:33 Chief Complaint (Nursing): Back Pain Chief Complaint (Provider): mid back pain History Per: Patient Additional Complaint(s): 72-year-old female presents with left mid back pain 2 weeks. Patient denies trauma or fall, denies any heavy lifting. Aspirin has not helped the pain. Patient states pain is worse with movement, better with rest. She does state the pain is worse with deep inspiration. Patient denies any chest pain. No fever or chills, no dysuria. PMD: Dr. Ellis Past Medical History Reviewed: Historical Data, Nursing Documentation, Vital Signs Vital Signs: Last Vital Signs Temp 98.9 F 01/13/18 11:26 Pulse 76 01/13/18 10:16 Resp 18 01/13/18 10:16 BP 156/88 H 01/13/18 10:16 Pulse Ox 100 01/13/18 10:16 - Medical History PMH: Asthma, CAD, COPD, Diabetes (type II), HTN, Hypercholesterolemia, Kidney Stones, Osteoporosis, Chronic Kidney Disease - Surgical History Surgical History: CABG (quadruple), Coronary Stent (x2), Tonsillectomy Denies: Pacemaker - Family History Family History: States: No Known Family Hx - Living Arrangements Living Arrangements: With Family - Social History Current smoker - smoking cessation education provided: No Alcohol: None Drugs: Denies - Home Medications Home Medications: Ambulatory Orders Medication Instructions Recorded Insulin Glargine,Hum.rec.anlog 70 units SQ HS 01/15/16 [Heath Keane] Metoprolol Tartrate [Lopressor] 100 mg PO DAILY 01/15/16 SITagliptin [Januvia] 25 mg PO DAILY 01/15/16 amLODIPine [Norvasc] 5 mg PO DAILY 01/15/16 Albuterol Sulfate [Proair Hfa] 2 puff IH Q4H PRN 11/18/16 Aspirin [Ecotrin] 81 mg PO DAILY 11/18/16 Hydrochlorothiazide [Microzide] 12.5 mg PO DAILY 05/20/17 Clopidogrel [Plavix] 75 mg PO DAILY 01/13/18 Famotidine [Pepcid] 20 mg PO DAILY 01/13/18 Insulin Lispro [Humalog Kwikpen 4 unit SC BRK 01/13/18 U-200] Insulin Lispro [Humalog Kwikpen 16 unit SC ACL 01/13/18 U-200] Insulin Lispro [Humalog Kwikpen 24 unit SC DIN 01/13/18 U-200] Lidocaine 5% [Lidoderm] 1 ea TD DAILY #30 patch 01/13/18 Losartan [Cozaar] 100 mg PO DAILY 01/13/18 Travoprost [Travatan Z] 1 drop EACHEYE HS 01/13/18 traMADol [Ultram] 50 mg PO QID #20 tab 01/13/18 - Allergies Allergies/Adverse Reactions: Allergies Allergy/AdvReac Type Severity Reaction Status Date / Time Penicillins Allergy RASH Verified 05/19/17 22:33 shrimp AdvReac SWELLING Verified 05/21/17 10:24 Review of Systems ROS Statement: Except As Marked, All Systems Reviewed And Found Negative Constitutional: Negative for: Fever, Chills Cardiovascular: Negative for: Chest Pain Respiratory: Negative for: Shortness of Breath Gastrointestinal: Negative for: Nausea, Vomiting, Abdominal Pain Genitourinary Female: Negative for: Dysuria, Hematuria Musculoskeletal: Positive for: Back Pain (left mid back) Neurological: Negative for: Headache, Dizziness Physical Exam - Reviewed Nursing Documentation Reviewed: Yes Vital Signs Reviewed: Yes - Physical Exam Appears: Positive for: Well, Non-toxic, No Acute Distress Skin: Positive for: Normal Color. Negative for: Rash Eye Exam: Positive for: Normal appearance Cardiovascular/Chest: Positive for: Regular Rate, Rhythm Respiratory: Positive for: Normal Breath Sounds. Negative for: Wheezing, Respiratory Distress Gastrointestinal/Abdominal: Positive for: Soft. Negative for: Tenderness Back: Positive for: Vertebral Tenderness (Tenderness to left paraspinal region along thoracic spine with palpable muscle spasm). Negative for: L CVA Tenderness, R CVA Tenderness Extremity: Positive for: Normal ROM Neurologic/Psych: Positive for: Alert, Oriented - Laboratory Results Result Diagrams: 01/13/18 11:15 01/13/18 11:15 - ECG Interpretation Of ECG: NSR 64 bpm, LVH, reviewed by PA and ED attending. O2 Sat by Pulse Oximetry: 100 Pulse Ox Interpretation: Normal - Other Rad CXR X-Ray: Interpreted by Me, Viewed By Me X-Ray Interpretation: no acute finding T spine x-ray X-Ray: Interpreted by Me, Viewed By Me X-Ray Interpretation: no acute finding V/Q scan X-Ray: Read By Radiologist X-Ray Interpretation: low probability V/Q scan for PE Medical Decision Making Medical Decision Makin72 y/o female with left mid back pain Plan: EKG CXR T spine x-ray CBC CMP D-dimer Troponin UA and culture IV toradol PO tylenol and tramadol Patient's d-dimer is markedly elevated. Patient has renal insufficiency at baseline, Cr today is 4.0. CT scan of chest with IV contrast is contraindicated. Case discussed further with Dr. Lutz, will ordered VQ scan. VQ scan is normal. Creatinine is elevated at 4.0, on 01/11 Cr was 3.7. Previous labs reviewed, patient has history of renal insufficiency. She states she has had this since she was 58 y/o. Patient does not see a burn out tender lace. Case was d/w Dr. Ellis, PMD, states to speak with nephrology about Cr level. Call placed to nephrology oracle solutions architect, Dr. Fox. Disposition - Clinical Impression Clinical Impression: Strain of thoracic region - Patient ED Disposition Is Patient to be Admitted: Transfer of Care Counseled Patient/Family Regarding: Studies Performed, Diagnosis, Need For Followup, Rx Given - Disposition Referrals: Jesús West MD [Family Provider] - Disposition: Transfer of Care Disposition Time: 20:11 Condition: STABLE Additional Instructions: Take rx meds as directed as needed for pain. You can take tylenol along with prescribed meds for added pain relief. Avoid heavy lifting or strenuous activity. Follow up with primary care doctor in 1-2 days or return any time if acutely worse to ED. Prescriptions: Lidocaine 5% [Lidoderm] 1 ea TD DAILY #30 patch traMADol [Ultram] 50 mg PO QID #20 tab Instructions: Muscle Strain (DC), Upper Back Pain Forms: [employer] (Yoruba) Patient Signed Over To: Sophia Dickson Handoff Comments: Signed out pending nephrology consult and final disposition. Results - Lab Results Lab Results: 01/13/18 01/13/18 01/13/18 12:10 11:15 11:15 WBC RBC Hgb Hct MCV MCH MCHC RDW Plt Count MPV Neut % (Auto) Lymph % (Auto) [place] % (Auto) Eos % (Auto) Baso % (Auto) Neut # (Auto) Lymph # (Auto) [place] # (Auto) Eos # (Auto) Baso # (Auto) D-Dimer, Quantitative 883 H Sodium 138 Potassium 4.4 Chloride 104 Carbon Dioxide 22 Anion Gap 16 BUN 52 H Creatinine 4.0 H Est GFR ( Amer) 13 Est GFR (Non-Af Amer) 11 Random Glucose 371 H Calcium 10.0 Total Bilirubin 0.3 AST 30 ALT 7 L D Alkaline Phosphatase 92 Troponin I 0.0180 Total Protein 8.4 H Albumin 4.0 Globulin 4.4 H Albumin/Globulin Ratio 0.9 L Lipase 113 Urine Color Yellow Urine Clarity Slighty-cloudy Urine pH 6.0 Ur Specific [place] 1.011 Urine Protein >=500 Urine Glucose (UA) >=500 Urine Ketones Negative Urine Blood Negative Urine Nitrate Negative Urine Bilirubin Negative Urine Urobilinogen 0.2-1.0 Ur Leukocyte Esterase Neg Urine RBC (Auto) 1 Urine Microscopic WBC 2 Ur Squamous Epith Cells 1 01/13/18 11:15 WBC 10.5 RBC 4.04 Hgb 11.1 L Hct 32.9 L MCV 81.3 MCH 27.4 MCHC 33.8 RDW 14.1 Plt Count 307 MPV 9.5 Neut % (Auto) 75.7 H Lymph % (Auto) 16.0 L [place] % (Auto) 5.1 Eos % (Auto) 2.2 Baso % (Auto) 1.0 Neut # (Auto) 7.9 H Lymph # (Auto) 1.7 [place] # (Auto) 0.5 Eos # (Auto) 0.2 Baso # (Auto) 0.1 D-Dimer, Quantitative Sodium Potassium Chloride Carbon Dioxide Anion Gap BUN Creatinine Est GFR ( Amer) Est GFR (Non-Af Amer) Random Glucose Calcium Total Bilirubin AST ALT Alkaline Phosphatase Troponin I Total Protein Albumin Globulin Albumin/Globulin Ratio Lipase Urine Color Urine Clarity Urine pH Ur Specific [place] Urine Protein Urine Glucose (UA) Urine Ketones Urine Blood Urine Nitrate Urine Bilirubin Urine Urobilinogen Ur Leukocyte Esterase Urine RBC (Auto) Urine Microscopic WBC Ur Squamous Epith Cells
[2018-01-13 12:01] LABS: ALB/GLOB RATIO 0.9 (1.0-2.1)
[2018-01-13 12:20] LABS: SQUAMOUS EPITHIAL 1 /hpf (0-5); URINE BILIRUBIN NEGATIVE (NEGATIVE); URINE BLOOD NEGATIVE (NEGATIVE); URINE CLARITY SLIGHTY-CLOUDY (Clear); URINE COLOR YELLOW (YELLOW); URINE GLUCOSE (UA) >=500 mg/dL (Normal); URINE LEUKOCYTE ESTERASE NEG Leu/uL (Negative); URINE PROTEIN >=500 mg/dL (NEGATIVE); URINE UROBILINOGEN 0.2-1.0 mg/dL (0.2-1.0)
--- NOTE | 2018-01-13 12:24 | RAD ---
Date of service: 01/13/2018 HISTORY: pain COMPARISON: No prior. FINDINGS: BONES: Alignment maintained. No fracture. Spondylosis. Generalized osteopenia. Midline sternotomy DISC SPACES: Normal. SOFT TISSUES: Normal. OTHER FINDINGS: None. IMPRESSION: No fracture or lytic lesion appreciated. Other findings as above.
--- NOTE | 2018-01-13 12:33 | RAD ---
Date of service: 01/13/2018 HISTORY: upper back pain COMPARISON: 05/20/2017 TECHNIQUE: Chest PA and lateral FINDINGS: LUNGS: No active pulmonary disease. PLEURA: No significant pleural effusion identified. No pneumothorax apparent. CARDIOVASCULAR: There is presence of aortic atherosclerotic calcification on x-ray. Minimal cardiomegaly tortuous unfolded thoracic aorta-both similar in appearance. Midline sternotomy. Perihilar bronchovascular markings top-normal in appearance. Similar prominent vessels on end and/or mild granulomatous changes left suprahilar location. OSSEOUS STRUCTURES: Midline sternotomy. Generalized osteopenia. VISUALIZED UPPER ABDOMEN: Normal. OTHER FINDINGS: None. IMPRESSION: No interval pathology noted.
--- NOTE | 2018-01-13 15:53 | NM ---
01/13/2018 COMPARISON: January 13, 2018 TECHNIQUE: mCi technetium 99-m Xe-133 Gas. mCI technetium 99-m MAA administered intravenously. FINDINGS: VENTILATION COMPONENT: Normal. PERFUSION COMPONENT: Heterogeneous distribution of radionuclide. No geographic, segmental, lobar abnormalities apparent on the present examination. IMPRESSION: Low probability ventilation perfusion scan for pulmonary embolism.
--- NOTE | 2018-01-13 19:38 | CARD ---
APPROVED REPORT Date of service: 01/13/2018 EKG Measurement Heart [id number] [place] [id number] <Conclusion> Normal sinus rhythm Left ventricular hypertrophy with repolarization abnormality T wave inversion, consider anterior wall ischemia Abnormal ECG
--- NOTE | 2018-01-13 20:49 | ED PDOC ---
- Laboratory Results Result Diagrams: 01/13/18 11:15 01/13/18 11:15 - ECG O2 Sat by Pulse Oximetry: 100 - Progress ED Course And Treament: Case endorsed to radio news writer from [facility] pending callback from Nephrology on- call Unable to reach Nephrology on-call Dr. Ellis made aware, recommends placement in observation for am consult Disposition - Clinical Impression Clinical Impression: Strain of thoracic region, Kidney failure - POA Present On Arrival: None - Disposition Disposition: Hospitalized as Observation Patient Disposition Time: 21:22 Condition: FAIR
--- NOTE | 2018-01-13 23:55 | CP.PCM.PN ---
Subjective - Date & Time of Evaluation Date of Evaluation: 01/13/18 Time of Evaluation: 22:22 - Subjective Subjective: 72 yo with hx of Heart dx Asthma CKD presented to the ER with back pain Pt found to have elevated D-dimer and subsequent Lung scan was negative Creatinine also found to be 4.0 Objective - Vital Signs/Intake and Output Vital Signs (last 24 hours): Temp Pulse Resp BP Pulse Ox 97.5 F L 71 18 180/93 H 98 01/13/18 23:42 01/13/18 23:42 01/13/18 23:42 01/13/18 23:42 01/13/18 23:42 - Labs Labs: 01/13/18 11:15 01/13/18 11:15 Assessment and Plan - Assessment and Plan (Free Text) Assessment: Elevated creat. 4.0 with hx of CKD Discuss with Nephrology
[2018-01-14] MEDS ORDERED: Patient's Own Med (Albuterol Sulfate 2 PUFF) IH PRN (00:26)
[2018-01-14] MEDS ORDERED: Albuterol HFA 90 mcg/actuation (8 g) INH PRN (00:37)
[2018-01-14] MEDS: Sodium Chloride 0.45% 1,000 ML IV SCH ×2 (00:47→16:55)
[2018-01-14 05:41] LABS: HEMOGLOBIN 10.3 g/dL (12.0-16.0); MEAN CELL VOLUME 81.7 fl (81.0-99.0); MEAN CORPUSCULAR HEMOGLOBIN 26.9 pg (27.0-31.0); MEAN CORPUSCULAR HGB CONC 32.9 g/dL (33.0-37.0); RBC 3.83 Mil/uL (3.80-5.20); RED CELL DISTRIBUTION WIDTH 13.9 % (11.5-14.5); WHITE BLOOD COUNT 8.4 K/uL (4.8-10.8)
[2018-01-14 06:14] LABS: ALB/GLOB RATIO 0.9 (1.0-2.1); ALBUMIN 3.5 g/dL (3.5-5.0); CALCIUM 9.7 mg/dL (8.4-10.2)
--- NOTE | 2018-01-14 09:55 | CP.PCM.CON ---
History of Present Illness - History of Present Illness History of Present Illness: this 72-year-old female came to the emergency room with left flank pain which had been going on for approximately 3 days. Any movement aggravated this pain. The patient has been a hypertensive and diabetic with a long history of chronic cigarette use and COPD because of rate, who required coronary bypass graft surgery in February 2012 and stenting of coronary arteries in September 2015. A nuclear stress test carried out in November 2016 did not show any significant myocardial ischemia. Her left ventricular ejection fraction was 69% during this test. her lab tests showed a serum creatinine of 4 mg percent and the patient was hospitalized for workup and evaluation of her renal status. Review off her labs over last 5 years show a gradually increasing BUN and creatinine. The patient denies any recent nausea vomiting diarrhea which would have produced dehydration. She has not been on any oral diabetics. Physical examination shows an anxious -[place] female who is quite alert awake and coherent. She was afebrile. Her heart rate was 74 bpm regular with a blood pressure of 170/80 mmHg. Her jugular venous pressure was not elevated there was no edema over lower extremities. The pedal pulses were extremely feeble. There were no carotid bruits. A scar of sternotomy was evident. The apex was not palpable the first and second heart sounds were normal but distant. Expedition was slightly prolonged. There was no wheeze and there were no rales. Her electrocardiogram showed sinus rhythm with a pattern of left ventricular hypertrophy with ST-T abnormalities because of it. Her lab data was noted. the patient had a normocytic normochromic anemia with a hemoglobin of 10.3 g. Her electrolytes were normal. BUN/creatinine and creatinine where 48 and 3.7 mg percent respectively. impression:CKD stage IV, hypertension diabetes mellitus and COPD. Stable coronary artery disease status post coronary bypass graft surgery and coronary stenting in the past. The patient is stable from cardiovascular point of view I will follow the patient with you thank you Past Patient History - Infectious Disease Hx of Infectious Diseases: None - Tetanus Immunizations Tetanus Immunization: Unknown - Past Medical History & Family History Past Medical History?: Yes - Past Social History Smoking Status: Former Smoker - CARDIAC Hx Cardiac Disorders: Yes Hx Hypercholesterolemia: Yes Hx Hypertension: Yes Hx Pacemaker: No - PULMONARY Hx Respiratory Disorders: Yes Hx Asthma: Yes Hx Chronic Obstructive Pulmonary Disease (COPD): Yes - NEUROLOGICAL Hx Neurological Disorder: No Other/Comment: Neuropathy - HEENT Hx HEENT Problems: Yes Hx Glaucoma: Yes - RENAL Hx Chronic Kidney Disease: Yes Hx Kidney Stones: Yes - ENDOCRINE/METABOLIC Hx Diabetes Mellitus Type 2: Yes (on insulin) Other/Comment: hyperparathyroid - HEMATOLOGICAL/ONCOLOGICAL Hx Blood Disorders: No Hx Blood Transfusions: No Other/Comment: DVT at the age of 28yrs old. - INTEGUMENTARY Hx Dermatological Problems: No - MUSCULOSKELETAL/RHEUMATOLOGICAL Hx Musculoskeletal Disorders: Yes Hx Falls: No Hx Osteoporosis: Yes - GASTROINTESTINAL Hx Gastrointestinal Disorders: Yes Hx Gastroesophageal Reflux: Yes - GENITOURINARY/GYNECOLOGICAL Hx Genitourinary Disorders: No - PSYCHIATRIC Hx Psychophysiologic Disorder: No Hx Substance Use: No - SURGICAL HISTORY Hx Surgeries: Yes Hx Coronary Artery Bypass Graft: Yes (quadruple) Hx Coronary Stent: Yes (x2) Hx Tonsillectomy: Yes - ANESTHESIA Hx Anesthesia: Yes Hx Anesthesia Reactions: No Hx Malignant Hyperthermia: No Meds Allergies/Adverse Reactions: Allergies Allergy/AdvReac Type Severity Reaction Status Date / Time Penicillins Allergy RASH Verified 05/19/17 22:33 shrimp AdvReac SWELLING Verified 05/21/17 10:24 - Medications Medications: Current Medications Acetaminophen (Tylenol 325mg Tab) 650 mg PO Q6 PRN PRN Reason: Pain, moderate (4-7) Albuterol (Ventolin Hfa 90 Mcg/Actuation (8 G)) 2 puff INH RQ4 PRN PRN Reason: Shortness of Breath Amlodipine Besylate (Norvasc) 5 mg PO DAILY [facility] Last Admin: 01/14/18 09:14 Dose: 5 mg Aspirin (Ecotrin) 81 mg PO DAILY [facility] Last Admin: 01/14/18 09:14 Dose: 81 mg Famotidine (Pepcid) 20 mg PO DAILY [facility] Last Admin: 01/14/18 09:15 Dose: 20 mg Home Med (Insulin Glargine,Hum.Rec.Anlog [Heath Keane]) 70 units SQ HS [facility] Sodium Chloride (Sodium Chloride 0.45%) 1,000 mls @ 60 mls/hr IV .[id number] [facility] Stop: 01/15/18 00:29 Last Admin: 01/14/18 00:47 Dose: 60 mls/hr Latanoprost (Xalatan Opht) 1 drop OU HS [facility] Metoprolol Tartrate (Lopressor) 100 mg PO DAILY [facility] Last Admin: 01/14/18 09:15 Dose: 100 mg Sitagliptin Phosphate (Januvia) 25 mg PO DAILY [facility] Last Admin: 01/14/18 09:14 Dose: 25 mg Tramadol HCl (Ultram) 50 mg PO Q6 PRN PRN Reason: Pain, severe (8-10) Last Admin: 01/14/18 00:42 Dose: 50 mg Results - Vital Signs Recent Vital Signs: Last Vital Signs Temp 97.6 F 01/14/18 08:10 Pulse 74 01/14/18 09:15 Resp 18 01/14/18 08:10 BP 175/85 H 01/14/18 09:15 Pulse Ox 98 01/14/18 08:10 - Labs Result Diagrams: 01/14/18 05:16 01/14/18 05:16 Labs: Laboratory Results - last 24 hr 01/13/18 01/13/18 01/13/18 11:15 11:15 11:15 WBC 10.5 RBC 4.04 Hgb 11.1 L Hct 32.9 L MCV 81.3 MCH 27.4 MCHC 33.8 RDW 14.1 Plt Count 307 MPV 9.5 Neut % (Auto) 75.7 H Lymph % (Auto) 16.0 L [place] % (Auto) 5.1 Eos % (Auto) 2.2 Baso % (Auto) 1.0 Neut # (Auto) 7.9 H Lymph # (Auto) 1.7 [place] # (Auto) 0.5 Eos # (Auto) 0.2 Baso # (Auto) 0.1 D-Dimer, Quantitative 883 H Sodium 138 Potassium 4.4 Chloride 104 Carbon Dioxide 22 Anion Gap 16 BUN 52 H Creatinine 4.0 H Est GFR ( Amer) 13 Est GFR (Non-Af Amer) 11 POC Glucose (mg/dL) Random Glucose 371 H Calcium 10.0 Total Bilirubin 0.3 AST 30 ALT 7 L D Alkaline Phosphatase 92 Troponin I 0.0180 Total Protein 8.4 H Albumin 4.0 Globulin 4.4 H Albumin/Globulin Ratio 0.9 L Lipase 113 Urine Color Urine Clarity Urine pH Ur Specific [place] Urine Protein Urine Glucose (UA) Urine Ketones Urine Blood Urine Nitrate Urine Bilirubin Urine Urobilinogen Ur Leukocyte Esterase Urine RBC (Auto) Urine Microscopic WBC Ur Squamous Epith Cells 01/13/18 01/13/1801/14/18 12:10 19:11 05:16 WBC 8.4 RBC 3.83 Hgb 10.3 L Hct 31.3 L MCV 81.7 MCH 26.9 L MCHC 32.9 L RDW 13.9 Plt Count 277 MPV Neut % (Auto) Lymph % (Auto) [place] % (Auto) Eos % (Auto) Baso % (Auto) Neut # (Auto) Lymph # (Auto) [place] # (Auto) Eos # (Auto) Baso # (Auto) D-Dimer, Quantitative Sodium Potassium Chloride Carbon Dioxide Anion Gap BUN Creatinine Est GFR ( Amer) Est GFR (Non-Af Amer) POC Glucose (mg/dL) 224 H Random Glucose Calcium Total Bilirubin AST ALT Alkaline Phosphatase Troponin I Total Protein Albumin Globulin Albumin/Globulin Ratio Lipase Urine Color Yellow Urine Clarity Slighty-cloudy Urine pH 6.0 Ur Specific [place] 1.011 Urine Protein >=500 Urine Glucose (UA) >=500 Urine Ketones Negative Urine Blood Negative Urine Nitrate Negative Urine Bilirubin Negative Urine Urobilinogen 0.2-1.0 Ur Leukocyte Esterase Neg Urine RBC (Auto) 1 Urine Microscopic WBC 2 Ur Squamous Epith Cells 1 01/14/18 01/14/18 05:16 05:37 WBC RBC Hgb Hct MCV MCH MCHC RDW Plt Count MPV Neut % (Auto) Lymph % (Auto) [place] % (Auto) Eos % (Auto) Baso % (Auto) Neut # (Auto) Lymph # (Auto) [place] # (Auto) Eos # (Auto) Baso # (Auto) D-Dimer, Quantitative Sodium 141 Potassium 3.8 Chloride 110 H Carbon Dioxide 24 Anion Gap 11 BUN 48 H Creatinine 3.7 H Est GFR ( Amer) 15 Est GFR (Non-Af Amer) 12 POC Glucose (mg/dL) 163 H Random Glucose 184 H Calcium 9.7 Total Bilirubin 0.2 AST 30 ALT 13 Alkaline Phosphatase 84 Troponin I Total Protein 7.4 Albumin 3.5 Globulin 3.9 Albumin/Globulin Ratio 0.9 L Lipase Urine Color Urine Clarity Urine pH Ur Specific [place] Urine Protein Urine Glucose (UA) Urine Ketones Urine Blood Urine Nitrate Urine Bilirubin Urine Urobilinogen Ur Leukocyte Esterase Urine RBC (Auto) Urine Microscopic WBC Ur Squamous Epith Cells
--- NOTE | 2018-01-14 10:41 | CP.PCM.CON ---
History of Present Illness - History of Present Illness History of Present Illness: 72 y/o female with Hx/o CKD with baseline creat. of 2.8 in 06/07 presented to ER for c/o Lt sided back pain.Renal consult is requested because of worsening of renal function. PMH is also significant for HTN,CABG in 2012 & required stenting in 2016,IDDM,HLD,asthma & cholelithiasis. Also gives Hx/o kidney stones few yrs ago which required Urological procedure. Denied Hx/o recurrent UTIs. Pt states that she drinks lot of water and has been urinating a lot. No FHGx/o kidney dis. Review of Systems - Review of Systems Review of Systems: Appears comfortable .No acute distress noted. - Constitutional Additional comments: No fevers or chills - EENT Eyes: As Per HPI Ears: As Per HPI Nose/Mouth/Throat: As Per HPI Past Patient History - Infectious Disease Hx of Infectious Diseases: None - Tetanus Immunizations Tetanus Immunization: Unknown - Past Medical History & Family History Past Medical History?: Yes - Past Social History Smoking Status: Former Smoker - CARDIAC Hx Cardiac Disorders: Yes Hx Hypercholesterolemia: Yes Hx Hypertension: Yes Hx Pacemaker: No - PULMONARY Hx Respiratory Disorders: Yes Hx Asthma: Yes Hx Chronic Obstructive Pulmonary Disease (COPD): Yes - NEUROLOGICAL Hx Neurological Disorder: No Other/Comment: Neuropathy - HEENT Hx HEENT Problems: Yes Hx Glaucoma: Yes - RENAL Hx Chronic Kidney Disease: Yes Hx Kidney Stones: Yes - ENDOCRINE/METABOLIC Hx Diabetes Mellitus Type 2: Yes (on insulin) Other/Comment: hyperparathyroid - HEMATOLOGICAL/ONCOLOGICAL Hx Blood Disorders: No Hx Blood Transfusions: No Other/Comment: DVT at the age of 28yrs old. - INTEGUMENTARY Hx Dermatological Problems: No - MUSCULOSKELETAL/RHEUMATOLOGICAL Hx Musculoskeletal Disorders: Yes Hx Falls: No Hx Osteoporosis: Yes - GASTROINTESTINAL Hx Gastrointestinal Disorders: Yes Hx Gastroesophageal Reflux: Yes - GENITOURINARY/GYNECOLOGICAL Hx Genitourinary Disorders: No - PSYCHIATRIC Hx Psychophysiologic Disorder: No Hx Substance Use: No - SURGICAL HISTORY Hx Surgeries: Yes Hx Coronary Artery Bypass Graft: Yes (quadruple) Hx Coronary Stent: Yes (x2) Hx Tonsillectomy: Yes - ANESTHESIA Hx Anesthesia: Yes Hx Anesthesia Reactions: No Hx Malignant Hyperthermia: No Meds Allergies/Adverse Reactions: Allergies Allergy/AdvReac Type Severity Reaction Status Date / Time Penicillins Allergy RASH Verified 05/19/17 22:33 shrimp AdvReac SWELLING Verified 05/21/17 10:24 - Medications Medications: Current Medications Acetaminophen (Tylenol 325mg Tab) 650 mg PO Q6 PRN PRN Reason: Pain, moderate (4-7) Albuterol (Ventolin Hfa 90 Mcg/Actuation (8 G)) 2 puff INH RQ4 PRN PRN Reason: Shortness of Breath Amlodipine Besylate (Norvasc) 5 mg PO DAILY [facility] Last Admin: 01/14/18 09:14 Dose: 5 mg Aspirin (Ecotrin) 81 mg PO DAILY [facility] Last Admin: 01/14/18 09:14 Dose: 81 mg Famotidine (Pepcid) 20 mg PO DAILY [facility] Last Admin: 01/14/18 09:15 Dose: 20 mg Home Med (Insulin Glargine,Hum.Rec.Anlog [Towayne Soljayna]) 70 units SQ HS [facility] Sodium Chloride (Sodium Chloride 0.45%) 1,000 mls @ 60 mls/hr IV .[id number] [facility] Stop: 01/15/18 00:29 Last Admin: 01/14/18 00:47 Dose: 60 mls/hr Latanoprost (Xalatan Opht) 1 drop OU HS [facility] Metoprolol Tartrate (Lopressor) 100 mg PO DAILY [facility] Last Admin: 01/14/18 09:15 Dose: 100 mg Sitagliptin Phosphate (Januvia) 25 mg PO DAILY [facility] Last Admin: 01/14/18 09:14 Dose: 25 mg Tramadol HCl (Ultram) 50 mg PO Q6 PRN PRN Reason: Pain, severe (8-10) Last Admin: 01/14/18 00:42 Dose: 50 mg Physical Exam - Constitutional Appears: No Acute Distress Additional comments: A & O, pleasant - Head Exam Head Exam: ATRAUMATIC, NORMOCEPHALIC - Eye Exam Eye Exam: Normal appearance Additional comments: No scleral icterus - ENT Exam ENT Exam: Mucous Membranes Moist - Neck Exam Neck exam: Positive for: Full Rom - Respiratory Exam Respiratory Exam: NORMAL BREATHING PATTERN Additional comments: Lungs are clear to auscultation. No wheezes - Cardiovascular Exam Cardiovascular Exam: REGULAR RHYTHM, +S1, +S2 Additional comments: 11-111/V1 sm LSB & aortic ewelina. - GI/Abdominal Exam Additional comments: Obese, Soft & nontender. No CVA tenderness appreciated. Tenderness noted over lt lower ribs - Rectal Exam Rectal Exam: Deferred - Extremities Exam Additional comments: No ECC Results - Vital Signs Recent Vital Signs: Last Vital Signs Temp 97.6 F 01/14/18 08:10 Pulse 74 01/14/18 09:15 Resp 18 01/14/18 08:10 BP 175/85 H 01/14/18 09:15 Pulse Ox 98 01/14/18 08:10 - Labs Result Diagrams: 01/14/18 05:16 01/14/18 05:16 Labs: Laboratory Results - last 24 hr 01/13/18 01/13/18 01/13/18 11:15 11:15 11:15 WBC 10.5 RBC 4.04 Hgb 11.1 L Hct 32.9 L MCV 81.3 MCH 27.4 MCHC 33.8 RDW 14.1 Plt Count 307 MPV 9.5 Neut % (Auto) 75.7 H Lymph % (Auto) 16.0 L [place] % (Auto) 5.1 Eos % (Auto) 2.2 Baso % (Auto) 1.0 Neut # (Auto) 7.9 H Lymph # (Auto) 1.7 [place] # (Auto) 0.5 Eos # (Auto) 0.2 Baso # (Auto) 0.1 D-Dimer, Quantitative 883 H Sodium 138 Potassium 4.4 Chloride 104 Carbon Dioxide 22 Anion Gap 16 BUN 52 H Creatinine 4.0 H Est GFR ( Amer) 13 Est GFR (Non-Af Amer) 11 POC Glucose (mg/dL) Random Glucose 371 H Calcium 10.0 Total Bilirubin 0.3 AST 30 ALT 7 L D Alkaline Phosphatase 92 Troponin I 0.0180 Total Protein 8.4 H Albumin 4.0 Globulin 4.4 H Albumin/Globulin Ratio 0.9 L Lipase 113 Urine Color Urine Clarity Urine pH Ur Specific [place] Urine Protein Urine Glucose (UA) Urine Ketones Urine Blood Urine Nitrate Urine Bilirubin Urine Urobilinogen Ur Leukocyte Esterase Urine RBC (Auto) Urine Microscopic WBC Ur Squamous Epith Cells 01/13/18 01/13/18 01/14/18 12:10 19:11 05:16 WBC 8.4 RBC 3.83 Hgb 10.3 L Hct 31.3 L MCV 81.7 MCH 26.9 L MCHC 32.9 L RDW 13.9 Plt Count 277 MPV Neut % (Auto) Lymph % (Auto) [place] % (Auto) Eos % (Auto) Baso % (Auto) Neut # (Auto) Lymph # (Auto) [place] # (Auto) Eos # (Auto) Baso # (Auto) D-Dimer, Quantitative Sodium Potassium Chloride Carbon Dioxide Anion Gap BUN Creatinine Est GFR ( Amer) Est GFR (Non-Af Amer) POC Glucose (mg/dL) 224 H Random Glucose Calcium Total Bilirubin AST ALT Alkaline Phosphatase Troponin I Total Protein Albumin Globulin Albumin/Globulin Ratio Lipase Urine Color Yellow Urine Clarity Slighty-cloudy Urine pH 6.0 Ur Specific [place] 1.011 Urine Protein >=500 Urine Glucose (UA) >=500 Urine Ketones Negative Urine Blood Negative Urine Nitrate Negative Urine Bilirubin Negative Urine Urobilinogen 0.2-1.0 Ur Leukocyte Esterase Neg Urine RBC (Auto) 1 Urine Microscopic WBC 2 Ur Squamous Epith Cells 1 01/14/18 01/14/18 05:16 05:37 WBC RBC Hgb Hct MCV MCH MCHC RDW Plt Count MPV Neut % (Auto) Lymph % (Auto) [place] % (Auto) Eos % (Auto) Baso % (Auto) Neut # (Auto) Lymph # (Auto) [place] # (Auto) Eos # (Auto) Baso # (Auto) D-Dimer, Quantitative Sodium 141 Potassium 3.8 Chloride 110 H Carbon Dioxide 24 Anion Gap 11 BUN 48 H Creatinine 3.7 H Est GFR ( Amer) 15 Est GFR (Non-Af Amer) 12 POC Glucose (mg/dL) 163 H Random Glucose 184 H Calcium 9.7 Total Bilirubin 0.2 AST 30 ALT 13 Alkaline Phosphatase 84 Troponin I Total Protein 7.4 Albumin 3.5 Globulin 3.9 Albumin/Globulin Ratio 0.9 L Lipase Urine Color Urine Clarity Urine pH Ur Specific [place] Urine Protein Urine Glucose (UA) Urine Ketones Urine Blood Urine Nitrate Urine Bilirubin Urine Urobilinogen Ur Leukocyte Esterase Urine RBC (Auto) Urine Microscopic WBC Ur Squamous Epith Cells Assessment & Plan - Assessment and Plan (Free Text) Assessment: Acute on chronic kidney dis. Acute component may be due to some volume depletion as a result of uncontrolled DM & mod glycosuria. CKD appears to be Stage 111- 1V. 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 Because of hx/o kidney stones will r/o renal colic HTN CAD Plan: Renal US Urine P/Cr, Phos, PTH Will order 24 hr urine when kidney function is stable. Agree with IV hydration. Thanks for the consult.
--- NOTE | 2018-01-14 10:46 | CP.PCM.CON ---
History of Present Illness - History of Present Illness History of Present Illness: Asked to see this 72 year old female, a former cigarette smoker with a prior diagnosis of Asthma and overlap COPD. Her respiratory disease has been stable and she does continue to have some moderate dyspnea on exertion. She claims to c maximino using her inhalers as prescribed, but on presentation only a rescue inhaler was noted. She did have a LABA/ICS inhaler prescribed in the past (Breo) which she apparently has not been using. She was last seen by me in the office in November 2016. On presentation now she was complaining of back pain and has been found to have significantly worsened renal function. There has been no fever or chills. Past Patient History - Infectious Disease Hx of Infectious Diseases: None - Tetanus Immunizations Tetanus Immunization: Unknown - Past Medical History & Family History Past Medical History?: Yes - Past Social History Smoking Status: Former Smoker (discontinued about 15 years ago) Chewing Tobacco Use: No Cigar Use: No Alcohol: None (former moderate to heavy alcohol intake, dc'd about 15 years ago) Drugs: Denies - CARDIAC Hx Hypercholesterolemia: Yes Hx Hypertension: Yes Other/Comment: prior CABG - PULMONARY Hx Asthma: Yes Hx Chronic Obstructive Pulmonary Disease (COPD): Yes - NEUROLOGICAL Other/Comment: Neuropathy of LE's - HEENT Hx Cataracts: Yes (had surgery) Hx Glaucoma: Yes - RENAL Hx Chronic Kidney Disease: Yes Hx Kidney Stones: Yes (X 2) - ENDOCRINE/METABOLIC Hx Diabetes Mellitus Type 2: Yes (on insulin) Other/Comment: hyperparathyroid - HEMATOLOGICAL/ONCOLOGICAL Hx Blood Transfusions: No Other/Comment: DVT at the age of 28yrs old. - INTEGUMENTARY Hx Dermatological Problems: No - MUSCULOSKELETAL/RHEUMATOLOGICAL Hx Falls: No Hx Osteoporosis: Yes - GASTROINTESTINAL Hx Gastroesophageal Reflux: Yes - GENITOURINARY/GYNECOLOGICAL Hx Genitourinary Disorders: No - PSYCHIATRIC Hx Psychophysiologic Disorder: No Hx Substance Use: No - SURGICAL HISTORY Hx Cataract Extraction: Yes Hx Coronary Artery Bypass Graft: Yes (quadruple) Hx Coronary Stent: Yes (x2) Hx Hysterectomy: Yes Hx Tonsillectomy: Yes - ANESTHESIA Hx Anesthesia: Yes Hx Anesthesia Reactions: No Hx Malignant Hyperthermia: No Meds Allergies/Adverse Reactions: Allergies Allergy/AdvReac Type Severity Reaction Status Date / Time Penicillins Allergy RASH Verified 05/19/17 22:33 shrimp AdvReac SWELLING Verified 05/21/17 10:24 - Medications Medications: Current Medications Acetaminophen (Tylenol 325mg Tab) 650 mg PO Q6 PRN PRN Reason: Pain, moderate (4-7) Albuterol (Ventolin Hfa 90 Mcg/Actuation (8 G)) 2 puff INH RQ4 PRN PRN Reason: Shortness of Breath Amlodipine Besylate (Norvasc) 5 mg PO DAILY [facility] Last Admin: 01/14/18 09:14 Dose: 5 mg Aspirin (Ecotrin) 81 mg PO DAILY [facility] Last Admin: 01/14/18 09:14 Dose: 81 mg Famotidine (Pepcid) 20 mg PO DAILY [facility] Last Admin: 01/14/18 09:15 Dose: 20 mg Home Med (Insulin Glargine,Hum.Rec.Anlog [Heath Keane]) 70 units SQ HS [facility] Sodium Chloride (Sodium Chloride 0.45%) 1,000 mls @ 60 mls/hr IV .[id number] [facility] Stop: 01/15/18 00:29 Last Admin: 01/14/18 00:47 Dose: 60 mls/hr Latanoprost (Xalatan Opht) 1 drop OU HS [facility] Metoprolol Tartrate (Lopressor) 100 mg PO DAILY [facility] Last Admin: 01/14/18 09:15 Dose: 100 mg Sitagliptin Phosphate (Januvia) 25 mg PO DAILY [facility] Last Admin: 01/14/18 09:14 Dose: 25 mg Tramadol HCl (Ultram) 50 mg PO Q6 PRN PRN Reason: Pain, severe (8-10) Last Admin: 01/14/18 00:42 Dose: 50 mg Physical Exam - Additional Findings Additional findings: Well nourished, well developed, no acute distress. Alert and well oriented, memory is intact, speech is fluent. Pharynx is pink and moist w/o exudate. Conjunctivae are pink and non-icteric Nares patent w/o bleeding or exudate. Neck is supple and trachea midline, No visible JVD. Right supraclavicular fossa tender w/o mass or node palpated. No carotid bruit. No dullness on chest percussion, equal expansion. +tenderness lower left rib cage. Breath sounds heard equally in both lungs, diminished. No rales or wheezes appreciated, no rhonchi heard. No bronchial breath sounds or egophony. Heart sounds well heard, regular rhythm, SOHAN at the base. Abdomen is soft and non-tender with good BS, no CVA tenderness. No dependant edema, no cyanosis, no calf tenderness. Results - Vital Signs Recent Vital Signs: Last Vital Signs Temp 97.6 F 01/14/18 08:10 Pulse 74 01/14/18 09:15 Resp 18 01/14/18 08:10 BP 175/85 H 01/14/18 09:15 Pulse Ox 98 01/14/18 08:10 - Labs Result Diagrams: 01/14/18 05:16 01/14/18 05:16 Labs: Laboratory Results - last 24 hr 01/13/18 01/13/18 01/13/18 11:15 11:15 11:15 WBC 10.5 RBC 4.04 Hgb 11.1 L Hct 32.9 L MCV 81.3 MCH 27.4 MCHC 33.8 RDW 14.1 Plt Count 307 MPV 9.5 Neut % (Auto) 75.7 H Lymph % (Auto) 16.0 L [place] % (Auto) 5.1 Eos % (Auto) 2.2 Baso % (Auto) 1.0 Neut # (Auto) 7.9 H Lymph # (Auto) 1.7 [place] # (Auto) 0.5 Eos # (Auto) 0.2 Baso # (Auto) 0.1 D-Dimer, Quantitative 883 H Sodium 138 Potassium 4.4 Chloride 104 Carbon Dioxide 22 Anion Gap 16 BUN 52 H Creatinine 4.0 H Est GFR ( Amer) 13 Est GFR (Non-Af Amer) 11 POC Glucose (mg/dL) Random Glucose 371 H Calcium 10.0 Total Bilirubin 0.3 AST 30 ALT 7 L D Alkaline Phosphatase 92 Troponin I 0.0180 Total Protein 8.4 H Albumin 4.0 Globulin 4.4 H Albumin/Globulin Ratio 0.9 L Lipase 113 Urine Color Urine Clarity Urine pH Ur Specific [place] Urine Protein Urine Glucose (UA) Urine Ketones Urine Blood Urine Nitrate Urine Bilirubin Urine Urobilinogen Ur Leukocyte Esterase Urine RBC (Auto) Urine Microscopic WBC Ur Squamous Epith Cells 01/13/18 01/13/18 01/14/18 12:10 19:11 05:16 WBC 8.4 RBC 3.83 Hgb 10.3 L Hct 31.3 L MCV 81.7 MCH 26.9 L MCHC 32.9 L RDW 13.9 Plt Count 277 MPV Neut % (Auto) Lymph % (Auto) [place] % (Auto) Eos % (Auto) Baso % (Auto) Neut # (Auto) Lymph # (Auto) [place] # (Auto) Eos # (Auto) Baso # (Auto) D-Dimer, Quantitative Sodium Potassium Chloride Carbon Dioxide Anion Gap BUN Creatinine Est GFR ( Amer) Est GFR (Non-Af Amer) POC Glucose (mg/dL) 224 H Random Glucose Calcium Total Bilirubin AST ALT Alkaline Phosphatase Troponin I Total Protein Albumin Globulin Albumin/Globulin Ratio Lipase Urine Color Yellow Urine Clarity Slighty-cloudy Urine pH 6.0 Ur Specific [place] 1.011 Urine Protein >=500 Urine Glucose (UA) >=500 Urine Ketones Negative Urine Blood Negative Urine Nitrate Negative Urine Bilirubin Negative Urine Urobilinogen 0.2-1.0 Ur Leukocyte Esterase Neg Urine RBC (Auto) 1 Urine Microscopic WBC 2 Ur Squamous Epith Cells 1 01/14/18 01/14/18 05:16 05:37 WBC RBC Hgb Hct MCV MCH MCHC RDW Plt Count MPV Neut % (Auto) Lymph % (Auto) [place] % (Auto) Eos % (Auto) Baso % (Auto) Neut # (Auto) Lymph # (Auto) [place] # (Auto) Eos # (Auto) Baso # (Auto) D-Dimer, Quantitative Sodium 141 Potassium 3.8 Chloride 110 H Carbon Dioxide 24 Anion Gap 11 BUN 48 H Creatinine 3.7 H Est GFR ( Amer) 15 Est GFR (Non-Af Amer) 12 POC Glucose (mg/dL) 163 H Random Glucose 184 H Calcium 9.7 Total Bilirubin 0.2 AST 30 ALT 13 Alkaline Phosphatase 84 Troponin I Total Protein 7.4 Albumin 3.5 Globulin 3.9 Albumin/Globulin Ratio 0.9 L Lipase Urine Color Urine Clarity Urine pH Ur Specific [place] Urine Protein Urine Glucose (UA) Urine Ketones Urine Blood Urine Nitrate Urine Bilirubin Urine Urobilinogen Ur Leukocyte Esterase Urine RBC (Auto) Urine Microscopic WBC Ur Squamous Epith Cells Assessment & Plan (1) CKD (chronic kidney disease) Status: Chronic Priority: High Comment: With current worsening renal function. Renal consult/workup underway. (2) CAD (coronary artery disease) Status: Chronic Priority: High Comment: Stable disease post CABG. Stress Myoview done last year w/o evidence of reversible ischemia. (3) Dyspnea on exertion Status: Chronic Priority: High (4) Asthma Status: Chronic Priority: High (5) COPD (chronic obstructive pulmonary disease) Status: Chronic Priority: High (6) Diabetes mellitus Status: Chronic Priority: High - Assessment and Plan (Free Text) Plan: Asthma/COPD overlap, syndrome with PFT in 2017 showing mild obstructive disease. Remains symptomatic on exertion only and needs updated medication review. May be less than compliant with prior regimen (no LABA/ICS listed on admission). - Date & Time Date: 01/14/18 Time: 10:39
[2018-01-14] MEDS: Insulin Lispro (humaLOG) 100 Units/ml Inj SC SCH ×2 (12:17→16:50)
[2018-01-14 15:34] LABS: CREATININE, RANDOM URINE 62.6 mg/dL
--- NOTE | 2018-01-14 15:37 | US ---
Date of service: 01/14/2018 PROCEDURE: Ultrasound of the Kidneys HISTORY: CKD, r/o renal calculi COMPARISON: 05/29/2017. Abdominal ultrasound. TECHNIQUE: Sonogram of the kidneys. FINDINGS: RIGHT KIDNEY: Measures: 4.6 x 9.2 cm. Abnormal, increased echogenicity likely medical renal disease. No stone, solid mass lesion or hydronephrosis visualized. LEFT KIDNEY: Measures: 6.5 x 10.4 cm. Normal in size, contour and echogenicity. No stone, solid mass lesion or hydronephrosis visualized. Incidental renal cysts 1 in lower pole 1.3 x 1.6 cm. Midpole cyst 7 x 9 mm. OTHER FINDINGS: None. IMPRESSION: No acute findings related to/accounting for the clinical presentation. Additional benign and/or incidental findings described above. No significant interval change compared to the prior examination(s).
[2018-01-14] MEDS: INSULIN GLARGINE HUM REC ANLOG 70 UNIT SQ SCH (21:11)
[2018-01-14] MEDS: Latanoprost 0.005% Opht SOUTION OU SCH (21:12)
--- NOTE | 2018-01-14 21:39 | CP.PCM.HP ---
History of Present Illness - History of Present Illness History of Present Illness: 72 yo admitted with elevated creatinine Present on Admission - Present on Admission Any Indicators Present on Admission: No Past Patient History - Infectious Disease Hx of Infectious Diseases: None - Tetanus Immunizations Tetanus Immunization: Unknown - Past Medical History & Family History Past Medical History?: Yes - Past Social History Smoking Status: Former Smoker (discontinued about 15 years ago) Chewing Tobacco Use: No Cigar Use: No Alcohol: None (former moderate to heavy alcohol intake, dc'd about 15 years ago) Drugs: Denies - CARDIAC Hx Hypercholesterolemia: Yes Hx Hypertension: Yes Other/Comment: prior CABG - PULMONARY Hx Asthma: Yes Hx Chronic Obstructive Pulmonary Disease (COPD): Yes - NEUROLOGICAL Other/Comment: Neuropathy of LE's - HEENT Hx Cataracts: Yes (had surgery) Hx Glaucoma: Yes - RENAL Hx Chronic Kidney Disease: Yes Hx Kidney Stones: Yes (X 2) - ENDOCRINE/METABOLIC Hx Diabetes Mellitus Type 2: Yes (on insulin) Other/Comment: hyperparathyroid - HEMATOLOGICAL/ONCOLOGICAL Hx Blood Transfusions: No Other/Comment: DVT at the age of 28yrs old. - INTEGUMENTARY Hx Dermatological Problems: No - MUSCULOSKELETAL/RHEUMATOLOGICAL Hx Falls: No Hx Osteoporosis: Yes - GASTROINTESTINAL Hx Gastroesophageal Reflux: Yes - GENITOURINARY/GYNECOLOGICAL Hx Genitourinary Disorders: No - PSYCHIATRIC Hx Psychophysiologic Disorder: No Hx Substance Use: No - SURGICAL HISTORY Hx Cataract Extraction: Yes Hx Coronary Artery Bypass Graft: Yes (quadruple) Hx Coronary Stent: Yes (x2) Hx Hysterectomy: Yes Hx Tonsillectomy: Yes - ANESTHESIA Hx Anesthesia: Yes Hx Anesthesia Reactions: No Hx Malignant Hyperthermia: No Meds Allergies/Adverse Reactions: Allergies Allergy/AdvReac Type Severity Reaction Status Date / Time Penicillins Allergy RASH Verified 05/19/17 22:33 shrimp AdvReac SWELLING Verified 05/21/17 10:24 Physical Exam - Respiratory Exam Respiratory Exam: NORMAL BREATHING PATTERN - Cardiovascular Exam Cardiovascular Exam: REGULAR RHYTHM - GI/Abdominal Exam GI & Abdominal Exam: Normal Bowel Sounds Results - Vital Signs Recent Vital Signs: Last Vital Signs Temp 98.7 F 01/14/18 19:33 Pulse 67 01/14/18 19:33 Resp 20 01/14/18 19:33 BP 169/78 H 01/14/18 19:33 Pulse Ox 97 01/14/18 19:33 - Labs Result Diagrams: 01/14/18 05:16 01/14/18 05:16 Labs: Laboratory Results - last 24 hr 01/14/18 01/14/18 01/14/18 05:16 05:16 05:37 WBC 8.4 RBC 3.83 Hgb 10.3 L Hct 31.3 L MCV 81.7 MCH 26.9 L MCHC 32.9 L RDW 13.9 Plt Count 277 Sodium 141 Potassium 3.8 Chloride 110 H Carbon Dioxide 24 Anion Gap 11 BUN 48 H Creatinine 3.7 H Est GFR ( Amer) 15 Est GFR (Non-Af Amer) 12 POC Glucose (mg/dL) 163 H Random Glucose 184 H Calcium 9.7 Total Bilirubin 0.2 AST 30 ALT 13 Alkaline Phosphatase 84 Total Protein 7.4 Albumin 3.5 Globulin 3.9 Albumin/Globulin Ratio 0.9 L Ur Random Creatinine U Random Total Protein 01/14/18 01/14/18 01/14/18 11:17 14:00 15:43 WBC RBC Hgb Hct MCV MCH MCHC RDW Plt Count Sodium Potassium Chloride Carbon Dioxide Anion Gap BUN Creatinine Est GFR ( Amer) Est GFR (Non-Af Amer) POC Glucose (mg/dL) 207 H 233 H Random Glucose Calcium Total Bilirubin AST ALT Alkaline Phosphatase Total Protein Albumin Globulin Albumin/Globulin Ratio Ur Random Creatinine 62.6 U Random Total Protein 492.0 H Assessment & Plan - Assessment and Plan (Free Text) Assessment: CKD IVETT? Nephrology Hydration COPD Pulmonary CAD s/p CABG Stent Cardiology - Date & Time Date: 01/14/18 Time: 22:22
[2018-01-14] MEDS ORDERED: Patient's Own Med (Travoprost [Travatan Z] 1 DROP) EACHEYE SCH (22:00)
[2018-01-15 05:47] LABS: CALCIUM 9.8 mg/dL (8.4-10.2)
[2018-01-15] MEDS: Insulin Lispro (humaLOG) 100 Units/ml Inj SC SCH ×3 (08:05→16:59)
--- NOTE | 2018-01-15 09:44 | CP.PCM.PN ---
Subjective - Date & Time of Evaluation Date of Evaluation: 01/15/18 Time of Evaluation: 09:00 - Subjective Subjective: Feels well, participating in rehab well HR 64 BPM, reg BP 124/70 mm Hg No signs of CHF Holter recording reviewed (see results) May go home on present Rx Spoke with pt's Objective - Vital Signs/Intake and Output Vital Signs (last 24 hours): Temp Pulse Resp BP Pulse Ox 97.9 F 71 18 187/81 H 98 01/15/18 08:58 01/15/18 08:58 01/15/18 08:58 01/15/18 08:58 01/15/18 08:58 Intake and Output: 01/15/18 01/15/18 06:59 18:59 Intake Total 600 Output Total 400 Balance 200 - Medications Medications: Current Medications Acetaminophen (Tylenol 325mg Tab) 650 mg PO Q6 PRN PRN Reason: Pain, moderate (4-7) Albuterol (Ventolin Hfa 90 Mcg/Actuation (8 G)) 2 puff INH RQ4 PRN PRN Reason: Shortness of Breath Amlodipine Besylate (Norvasc) 5 mg PO DAILY [facility] Last Admin: 01/15/18 08:02 Dose: 5 mg Aspirin (Ecotrin) 81 mg PO DAILY [facility] Last Admin: 01/15/18 08:04 Dose: 81 mg Famotidine (Pepcid) 20 mg PO DAILY [facility] Last Admin: 01/15/18 08:03 Dose: 20 mg Home Med (Insulin Glargine,Hum.Rec.Anlog [Heath Keane]) 70 units SQ HS [facility] Last Admin: 01/14/18 21:11 Dose: 70 units Insulin Human Lispro (Humalog) 14 units SC BRK [facility] Last Admin: 01/15/18 08:05 Dose: 14 units Insulin Human Lispro (Humalog) 24 units SC DIN [facility] Last Admin: 01/14/18 16:50 Dose: 24 units Insulin Human Lispro (Humalog) 18 units SC ACL [facility] Last Admin: 01/14/18 12:17 Dose: 18 units Latanoprost (Xalatan Opht) 1 drop OU HS [facility] Last Admin: 01/14/18 21:12 Dose: 1 drop Losartan Potassium (Cozaar) 100 mg PO DAILY [facility] Metoprolol Tartrate (Lopressor) 100 mg PO DAILY [facility] Last Admin: 01/15/18 08:03 Dose: 100 mg Ondansetron HCl (Zofran Inj) 4 mg IVP Q6 PRN PRN Reason: Nausea/Vomiting Sitagliptin Phosphate (Januvia) 25 mg PO DAILY [facility] Last Admin: 01/15/18 08:04 Dose: 25 mg Tramadol HCl (Ultram) 50 mg PO Q6 PRN PRN Reason: Pain, severe (8-10) Last Admin: 01/15/18 08:01 Dose: 50 mg - Labs Labs: 01/14/18 05:16 01/15/18 04:25
--- NOTE | 2018-01-15 09:49 | CP.PCM.PN ---
Subjective - Date & Time of Evaluation Date of Evaluation: 01/15/18 Time of Evaluation: 09:00 - Subjective Subjective: The patient continues to have intermittent left flank pain. Ultrasound of the kidney does not reveal hydronephrosis or presence of a calculus. The patient is free of any chest pain or palpitations. Her heart rate was 68 bpm regular and her blood pressure was 160/80 mmHg. There was no evidence of congestive cardiac failure. Labs reveal improving renal function. Her sodium and potassium levels were normal. I have renewed losartan 100 mg daily as part of her antihypertensives regimen. Objective - Vital Signs/Intake and Output Vital Signs (last 24 hours): Temp Pulse Resp BP Pulse Ox 97.9 F 71 18 187/81 H 98 01/15/18 08:58 01/15/18 08:58 01/15/18 08:58 01/15/18 08:58 01/15/18 08:58 Intake and Output: 01/15/18 01/15/18 06:59 18:59 Intake Total 600 Output Total 400 Balance 200 - Medications Medications: Current Medications Acetaminophen (Tylenol 325mg Tab) 650 mg PO Q6 PRN PRN Reason: Pain, moderate (4-7) Albuterol (Ventolin Hfa 90 Mcg/Actuation (8 G)) 2 puff INH RQ4 PRN PRN Reason: Shortness of Breath Amlodipine Besylate (Norvasc) 5 mg PO DAILY [facility] Last Admin: 01/15/18 08:02 Dose: 5 mg Aspirin (Ecotrin) 81 mg PO DAILY [facility] Last Admin: 01/15/18 08:04 Dose: 81 mg Famotidine (Pepcid) 20 mg PO DAILY [facility] Last Admin: 01/15/18 08:03 Dose: 20 mg Home Med (Insulin Glargine,Hum.Rec.Anlog [Heath Keane]) 70 units SQ HS [facility] Last Admin: 01/14/18 21:11 Dose: 70 units Insulin Human Lispro (Humalog) 14 units SC BRK [facility] Last Admin: 01/15/18 08:05 Dose: 14 units Insulin Human Lispro (Humalog) 24 units SC DIN [facility] Last Admin: 01/14/18 16:50 Dose: 24 units Insulin Human Lispro (Humalog) 18 units SC ACL [facility] Last Admin: 01/14/18 12:17 Dose: 18 units Latanoprost (Xalatan Opht) 1 drop OU HS [facility] Last Admin: 01/14/18 21:12 Dose: 1 drop Losartan Potassium (Cozaar) 100 mg PO DAILY [facility] Metoprolol Tartrate (Lopressor) 100 mg PO DAILY [facility] Last Admin: 01/15/18 08:03 Dose: 100 mg Ondansetron HCl (Zofran Inj) 4 mg IVP Q6 PRN PRN Reason: Nausea/Vomiting Sitagliptin Phosphate (Januvia) 25 mg PO DAILY [facility] Last Admin: 01/15/18 08:04 Dose: 25 mg Tramadol HCl (Ultram) 50 mg PO Q6 PRN PRN Reason: Pain, severe (8-10) Last Admin: 01/15/18 08:01 Dose: 50 mg - Labs Labs: 01/14/18 05:16 01/15/18 04:25
--- NOTE | 2018-01-15 11:10 | CP.PCM.PN ---
Subjective - Date & Time of Evaluation Date of Evaluation: 01/15/18 Time of Evaluation: 11:07 - Subjective Subjective: Breathing comforatbly on current regimen. Has not requested use of rescue inhaler. Maintains good oxygenation. Remains afebrile. Objective - Vital Signs/Intake and Output Vital Signs (last 24 hours): Temp Pulse Resp BP Pulse Ox 97.9 F 61 18 180/86 H 98 01/15/18 08:58 01/15/18 10:50 01/15/18 08:58 01/15/18 10:50 01/15/18 08:58 Intake and Output: 01/14/18 01/15/18 23:59 11:59 Intake Total 600 Output Total 400 Balance 200 - Medications Medications: Current Medications Acetaminophen (Tylenol 325mg Tab) 650 mg PO Q6 PRN PRN Reason: Pain, moderate (4-7) Albuterol (Ventolin Hfa 90 Mcg/Actuation (8 G)) 2 puff INH RQ4 PRN PRN Reason: Shortness of Breath Amlodipine Besylate (Norvasc) 5 mg PO DAILY [facility] Last Admin: 01/15/18 08:02 Dose: 5 mg Aspirin (Ecotrin) 81 mg PO DAILY [facility] Last Admin: 01/15/18 08:04 Dose: 81 mg Famotidine (Pepcid) 20 mg PO DAILY [facility] Last Admin: 01/15/18 08:03 Dose: 20 mg Home Med (Insulin Glargine,Hum.Rec.Anlog [Heath Keane]) 70 units SQ HS [facility] Last Admin: 01/14/18 21:11 Dose: 70 units Insulin Human Lispro (Humalog) 14 units SC BRK [facility] Last Admin: 01/15/18 08:05 Dose: 14 units Insulin Human Lispro (Humalog) 24 units SC DIN [facility] Last Admin: 01/14/18 16:50 Dose: 24 units Insulin Human Lispro (Humalog) 18 units SC ACL [facility] Last Admin: 01/14/18 12:17 Dose: 18 units Latanoprost (Xalatan Opht) 1 drop OU HS [facility] Last Admin: 01/14/18 21:12 Dose: 1 drop Losartan Potassium (Cozaar) 100 mg PO DAILY [facility] Last Admin: 01/15/18 10:50 Dose: 100 mg Metoprolol Tartrate (Lopressor) 100 mg PO DAILY [facility] Last Admin: 01/15/18 08:03 Dose: 100 mg Ondansetron HCl (Zofran Inj) 4 mg IVP Q6 PRN PRN Reason: Nausea/Vomiting Last Admin: 01/15/18 10:01 Dose: 4 mg Sitagliptin Phosphate (Januvia) 25 mg PO DAILY [facility] Last Admin: 01/15/18 08:04 Dose: 25 mg Tramadol HCl (Ultram) 50 mg PO Q6 PRN PRN Reason: Pain, severe (8-10) Last Admin: 01/15/18 08:01 Dose: 50 mg - Labs Labs: 01/14/18 05:16 01/15/18 04:25 - Additional Findings Additional findings: Lying in bed, semi-upright. Appears comfortable. Cooperative with exam, no cough or SOB noted. Lower/lateral left chest wall remains tender on palpation. Breath sounds are present bilaterally, equally in both lungs. No audible wheezing or bronchial breathing. No rales or bronchial breath sounds Heart sounds are well heard, unchanged. Assessment and Plan (1) CKD (chronic kidney disease) Status: Chronic (2) CAD (coronary artery disease) Status: Chronic (3) Dyspnea on exertion Status: Chronic (4) Asthma Assessment & Plan: Appears stable at the present time. Will continue with PRN use of rescue inhaler for now. Status: Chronic (5) COPD (chronic obstructive pulmonary disease) Assessment & Plan: If dyspnea on exertion develops when she becomes more mobile, the LABA/ICS will be added back in to her routine. Status: Chronic (6) Diabetes mellitus Status: Chronic (7) Chest pain Assessment & Plan: Appears to be musculoskeletal on examination of lower/lateral left chest wall. Also has tenderness on palpation of the right supraclavicular fossa. Status: Acute - Assessment and Plan (Free Text) Assessment: CT chest without contrast pending.
[2018-01-15] MEDS ORDERED: Insulin Lispro (humaLOG) 100 Units/ml Inj SC SCH (11:30)
--- NOTE | 2018-01-15 13:19 | CP.PCM.PN ---
Subjective - Date & Time of Evaluation Date of Evaluation: 01/15/18 Time of Evaluation: 12:50 - Subjective Subjective: Pt reports an episode of dizziness this morning f/b vomiting. Now feels betteAppetite is good. No SOB but still has Lt back pain. Objective - Vital Signs/Intake and Output Vital Signs (last 24 hours): Temp Pulse Resp BP Pulse Ox 99 F 60 18 162/83 H 98 01/15/18 12:26 01/15/18 12:26 01/15/18 12:26 01/15/18 12:26 01/15/18 12:26 Intake and Output: 01/15/18 01/15/18 06:59 18:59 Intake Total 600 Output Total 400 Balance 200 - Medications Medications: Current Medications Acetaminophen (Tylenol 325mg Tab) 650 mg PO Q6 PRN PRN Reason: Pain, moderate (4-7) Albuterol (Ventolin Hfa 90 Mcg/Actuation (8 G)) 2 puff INH RQ4 PRN PRN Reason: Shortness of Breath Amlodipine Besylate (Norvasc) 5 mg PO DAILY [facility] Last Admin: 01/15/18 08:02 Dose: 5 mg Aspirin (Ecotrin) 81 mg PO DAILY [facility] Last Admin: 01/15/18 08:04 Dose: 81 mg Famotidine (Pepcid) 20 mg PO DAILY [facility] Last Admin: 01/15/18 08:03 Dose: 20 mg Home Med (Insulin Glargine,Hum.Rec.Anlog [Heath Keane]) 70 units SQ HS [facility] Last Admin: 01/14/18 21:11 Dose: 70 units Insulin Human Lispro (Humalog) 14 units SC BRK [facility] Last Admin: 01/15/18 08:05 Dose: 14 units Insulin Human Lispro (Humalog) 24 units SC DIN [facility] Last Admin: 01/14/18 16:50 Dose: 24 units Insulin Human Lispro (Humalog) 18 units SC ACL [facility] Last Admin: 01/15/18 12:50 Dose: 18 units Latanoprost (Xalatan Opht) 1 drop OU HS [facility] Last Admin: 01/14/18 21:12 Dose: 1 drop Losartan Potassium (Cozaar) 100 mg PO DAILY [facility] Last Admin: 01/15/18 10:50 Dose: 100 mg Metoprolol Tartrate (Lopressor) 100 mg PO DAILY [facility] Last Admin: 01/15/18 08:03 Dose: 100 mg Ondansetron HCl (Zofran Inj) 4 mg IVP Q6 PRN PRN Reason: Nausea/Vomiting Last Admin: 01/15/18 10:01 Dose: 4 mg Sitagliptin Phosphate (Januvia) 25 mg PO DAILY [facility] Last Admin: 01/15/18 08:04 Dose: 25 mg Tramadol HCl (Ultram) 50 mg PO Q6 PRN PRN Reason: Pain, severe (8-10) Last Admin: 01/15/18 08:01 Dose: 50 mg - Labs Labs: 01/14/18 05:16 01/15/18 04:25 - Constitutional Appears: No Acute Distress - Eye Exam Eye Exam: Normal appearance Additional comments: No nystagmus Mild proptosis on RT - ENT Exam ENT Exam: Mucous Membranes Moist - Neck Exam Neck Exam: Normal Inspection - Respiratory Exam Respiratory Exam: NORMAL BREATHING PATTERN Additional comments: Lungs are clear. - Cardiovascular Exam Cardiovascular Exam: REGULAR RHYTHM Additional comments: No rub or S3 - GI/Abdominal Exam GI & Abdominal Exam: Soft Additional comments: No tenderness - Extremities Exam Additional comments: No edema Assessment and Plan - Assessment and Plan (Free Text) Assessment: Stage 1V kidney dis Creat remains 3.6 Estimated GFR 15 Renal US report reviewed Both kidneys are echogenic. Heavy proteinuria on urinalysis. 24 hr urine collection is ordered for quantitation of proteinuria. HTN BP remains high. Amlodipine was added Because of proteinuria suggest to keep SBP equal to or less than 130. Asthma CAD Plan: Low protein diet Monitor BP Serologies are ordered 24 hr urine for total prot & creatinine clearance.
--- NOTE | 2018-01-15 15:06 | CT ---
Date of service: 01/15/2018 PROCEDURE: CT Chest without contrast HISTORY: chest pain COMPARISON: 11/20/2016 TECHNIQUE: Contiguous axial images were obtained through the chest without intravenous contrast enhancement. Sagittal and coronal reconstructions were performed. Radiation dose: Total exam DLP = 428.94 mGy-cm. This CT exam was performed using one or more of the following dose reduction techniques: Automated exposure control, adjustment of the mA and/or kV according to patient size, and/or use of iterative reconstruction technique. FINDINGS: LUNGS: Redemonstration of scattered calcified and noncalcified sub centimeter lung nodules not significant change from prior examinations. Most prominent is in the right upper lobe measuring 4 millimeters. Mild bibasilar linear fibrotic change. MEDIASTINUM: Unremarkable thoracic aorta. No aneurysm. Normal sized heart. Main pulmonary artery unremarkable. No vascular congestion. No lymphadenopathy. No aortic atherosclerotic calcification. PLEURA: No pleural fluid. No pneumothorax. BONES: No fracture. No destructive lesion. UPPER ABDOMEN: Gallstones. OTHER FINDINGS: None. IMPRESSION: Redemonstration of scattered calcified and noncalcified sub centimeter lung nodules not significant change from prior examinations. Most prominent is in the right upper lobe measuring 4 millimeters. Mild bibasilar linear fibrotic change.
--- NOTE | 2018-01-15 18:42 | CP.PCM.PN ---
Subjective - Date & Time of Evaluation Date of Evaluation: 01/15/18 Time of Evaluation: 22:22 - Subjective Subjective: Above noted Objective - Vital Signs/Intake and Output Vital Signs (last 24 hours): Temp Pulse Resp BP Pulse Ox 98.2 F 60 18 161/78 H 99 01/15/18 16:55 01/15/18 16:55 01/15/18 16:55 01/15/18 16:55 01/15/18 16:55 Intake and Output: 01/15/18 01/15/18 06:59 18:59 Intake Total 600 Output Total 400 Balance 200 - Medications Medications: Current Medications Acetaminophen (Tylenol 325mg Tab) 650 mg PO Q6 PRN PRN Reason: Pain, moderate (4-7) Albuterol (Ventolin Hfa 90 Mcg/Actuation (8 G)) 2 puff INH RQ4 PRN PRN Reason: Shortness of Breath Amlodipine Besylate (Norvasc) 5 mg PO DAILY [facility] Last Admin: 01/15/18 08:02 Dose: 5 mg Aspirin (Ecotrin) 81 mg PO DAILY [facility] Last Admin: 01/15/18 08:04 Dose: 81 mg Famotidine (Pepcid) 20 mg PO DAILY [facility] Last Admin: 01/15/18 08:03 Dose: 20 mg Home Med (Insulin Glargine,Hum.Rec.Anlog [Heath Keane]) 70 units SQ HS [facility] Last Admin: 01/14/18 21:11 Dose: 70 units Insulin Human Lispro (Humalog) 14 units SC BRK [facility] Last Admin: 01/15/18 08:05 Dose: 14 units Insulin Human Lispro (Humalog) 24 units SC DIN [facility] Last Admin: 01/15/18 16:59 Dose: Not Given Insulin Human Lispro (Humalog) 18 units SC ACL [facility] Last Admin: 01/15/18 12:50 Dose: 18 units Latanoprost (Xalatan Opht) 1 drop OU HS [facility] Last Admin: 01/14/18 21:12 Dose: 1 drop Losartan Potassium (Cozaar) 100 mg PO DAILY [facility] Last Admin: 01/15/18 10:50 Dose: 100 mg Metoprolol Tartrate (Lopressor) 100 mg PO DAILY [facility] Last Admin: 01/15/18 08:03 Dose: 100 mg Ondansetron HCl (Zofran Inj) 4 mg IVP Q6 PRN PRN Reason: Nausea/Vomiting Last Admin: 01/15/18 10:01 Dose: 4 mg Sitagliptin Phosphate (Januvia) 25 mg PO DAILY [facility] Last Admin: 01/15/18 08:04 Dose: 25 mg Tramadol HCl (Ultram) 50 mg PO Q6 PRN PRN Reason: Pain, severe (8-10) Last Admin: 01/15/18 08:01 Dose: 50 mg - Labs Labs: 01/14/18 05:16 01/15/18 04:25 - Respiratory Exam Respiratory Exam: NORMAL BREATHING PATTERN - Cardiovascular Exam Cardiovascular Exam: REGULAR RHYTHM - GI/Abdominal Exam GI & Abdominal Exam: Normal Bowel Sounds Assessment and Plan - Assessment and Plan (Free Text) Assessment: CKD IVETT? HTN uncontrolled Nephrology Hydration W/U in process COPD Pulmonary CAD S/P CABG Stent Cardiology
[2018-01-15] MEDS ORDERED: Alum-Mag Hydrox-Simethicone Susp (30 mL) PO ONE (18:52)
[2018-01-15] MEDS: Latanoprost 0.005% Opht SOUTION OU SCH (21:17)
[2018-01-15] MEDS: INSULIN GLARGINE HUM REC ANLOG 70 UNIT SQ SCH (21:19)
[2018-01-15 21:34] LABS: COMPLEMENT C4 44.5 mg/dL (14.0-44.0)
[2018-01-16 07:38] LABS: ALB/GLOB RATIO 0.9 (1.0-2.1); ALBUMIN 3.5 g/dL (3.5-5.0); CALCIUM 9.5 mg/dL (8.4-10.2)
[2018-01-16] MEDS: Insulin Lispro (humaLOG) 100 Units/ml Inj SC SCH ×3 (09:32→17:50)
--- NOTE | 2018-01-16 12:15 | CP.PCM.PN ---
Subjective - Date & Time of Evaluation Date of Evaluation: 01/16/18 Time of Evaluation: 12:14 - Subjective Subjective: Respiratory status appears stable on current regimen. Renal workup in progress. Will sign off case at this time. Call again if needed. Objective - Vital Signs/Intake and Output Vital Signs (last 24 hours): Temp Pulse Resp BP Pulse Ox 98.3 F 78 18 162/74 H 98 01/16/18 08:43 01/16/18 09:32 01/16/18 08:43 01/16/18 09:32 01/16/18 08:43 - Medications Medications: Current Medications Acetaminophen (Tylenol 325mg Tab) 650 mg PO Q6 PRN PRN Reason: Pain, moderate (4-7) Last Admin: 01/16/18 04:10 Dose: 650 mg Albuterol (Ventolin Hfa 90 Mcg/Actuation (8 G)) 2 puff INH RQ4 PRN PRN Reason: Shortness of Breath Amlodipine Besylate (Norvasc) 5 mg PO DAILY [facility] Last Admin: 01/16/18 09:31 Dose: 5 mg Aspirin (Ecotrin) 81 mg PO DAILY [facility] Last Admin: 01/16/18 09:30 Dose: 81 mg Famotidine (Pepcid) 20 mg PO DAILY [facility] Last Admin: 01/16/18 09:32 Dose: 20 mg Home Med (Insulin Glargine,Hum.Rec.Anlog [Heath Keane]) 70 units SQ HS [facility] Last Admin: 01/15/18 21:19 Dose: 70 units Insulin Human Lispro (Humalog) 14 units SC BRK [facility] Last Admin: 01/16/18 09:32 Dose: 14 units Insulin Human Lispro (Humalog) 24 units SC DIN [facility] Last Admin: 01/15/18 16:59 Dose: Not Given Insulin Human Lispro (Humalog) 18 units SC ACL [facility] Last Admin: 01/15/18 12:50 Dose: 18 units Latanoprost (Xalatan Opht) 1 drop OU HS [facility] Last Admin: 01/15/18 21:17 Dose: 1 drop Losartan Potassium (Cozaar) 100 mg PO DAILY [facility] Last Admin: 01/16/18 09:30 Dose: 100 mg Metoprolol Tartrate (Lopressor) 100 mg PO DAILY [facility] Last Admin: 01/16/18 09:32 Dose: 100 mg Ondansetron HCl (Zofran Inj) 4 mg IVP Q6 PRN PRN Reason: Nausea/Vomiting Last Admin: 01/15/18 10:01 Dose: 4 mg Sitagliptin Phosphate (Januvia) 25 mg PO DAILY [facility] Last Admin: 01/16/18 09:30 Dose: 25 mg Tramadol HCl (Ultram) 50 mg PO Q6 PRN PRN Reason: Pain, severe (8-10) Last Admin: 01/15/18 08:01 Dose: 50 mg - Labs Labs: 01/14/18 05:16 01/16/18 05:40 Assessment and Plan (1) CKD (chronic kidney disease) Status: Chronic (2) CAD (coronary artery disease) Status: Chronic (3) Dyspnea on exertion Status: Chronic (4) Asthma Status: Chronic (5) COPD (chronic obstructive pulmonary disease) Status: Chronic (6) Diabetes mellitus Status: Chronic (7) Chest pain Status: Acute
--- NOTE | 2018-01-16 12:44 | CP.PCM.PN ---
Subjective - Date & Time of Evaluation Date of Evaluation: 01/16/18 Time of Evaluation: 12:30 - Subjective Subjective: Feels better. Appears comfortable Objective - Vital Signs/Intake and Output Vital Signs (last 24 hours): Temp Pulse Resp BP Pulse Ox 98.1 F 17 L 17 167/75 H 97 01/16/18 12:20 01/16/18 12:20 01/16/18 12:20 01/16/18 12:20 01/16/18 12:20 - Medications Medications: Current Medications Acetaminophen (Tylenol 325mg Tab) 650 mg PO Q6 PRN PRN Reason: Pain, moderate (4-7) Last Admin: 01/16/18 04:10 Dose: 650 mg Albuterol (Ventolin Hfa 90 Mcg/Actuation (8 G)) 2 puff INH RQ4 PRN PRN Reason: Shortness of Breath Amlodipine Besylate (Norvasc) 5 mg PO DAILY [facility] Last Admin: 01/16/18 09:31 Dose: 5 mg Aspirin (Ecotrin) 81 mg PO DAILY [facility] Last Admin: 01/16/18 09:30 Dose: 81 mg Famotidine (Pepcid) 20 mg PO DAILY [facility] Last Admin: 01/16/18 09:32 Dose: 20 mg Home Med (Insulin Glargine,Hum.Rec.Anlog [Heath Keane]) 70 units SQ HS [facility] Last Admin: 01/15/18 21:19 Dose: 70 units Insulin Human Lispro (Humalog) 14 units SC BRK [facility] Last Admin: 01/16/18 09:32 Dose: 14 units Insulin Human Lispro (Humalog) 24 units SC DIN [facility] Last Admin: 01/15/18 16:59 Dose: Not Given Insulin Human Lispro (Humalog) 18 units SC ACL [facility] Last Admin: 01/16/18 12:35 Dose: 18 units Latanoprost (Xalatan Opht) 1 drop OU HS [facility] Last Admin: 01/15/18 21:17 Dose: 1 drop Losartan Potassium (Cozaar) 100 mg PO DAILY [facility] Last Admin: 01/16/18 09:30 Dose: 100 mg Metoprolol Tartrate (Lopressor) 100 mg PO DAILY [facility] Last Admin: 01/16/18 09:32 Dose: 100 mg Ondansetron HCl (Zofran Inj) 4 mg IVP Q6 PRN PRN Reason: Nausea/Vomiting Last Admin: 01/15/18 10:01 Dose: 4 mg Sitagliptin Phosphate (Januvia) 25 mg PO DAILY [facility] Last Admin: 01/16/18 09:30 Dose: 25 mg Tramadol HCl (Ultram) 50 mg PO Q6 PRN PRN Reason: Pain, severe (8-10) Last Admin: 01/15/18 08:01 Dose: 50 mg - Labs Labs: 01/14/18 05:16 01/16/18 05:40 - Constitutional Appears: No Acute Distress - Head Exam Head Exam: NORMAL INSPECTION - Eye Exam Eye Exam: Normal appearance - Cardiovascular Exam Additional comments: No icterus - GI/Abdominal Exam GI & Abdominal Exam: Soft Additional comments: Nontender - Extremities Exam Additional comments: No edema or cyanosis. Assessment and Plan - Assessment and Plan (Free Text) Assessment: Stage 1V kidney disease. Creat. remains stable Proteinuria. Etiology prbably diabetic nephropathy. Serologies are ordered to r/o othe etiologies HTN CAD,PPM DM Plan: BP remains high. Suggest to increase Amlodipine to 10 mg/d 24 hr urine is in progress Serologies pending.
[2018-01-16 14:04] LABS: URINE CREATININE 75.7 mg/dL
--- NOTE | 2018-01-16 14:27 | CP.PCM.PN ---
Subjective - Date & Time of Evaluation Date of Evaluation: 01/16/18 Time of Evaluation: 22:22 - Subjective Subjective: Above noted Objective - Vital Signs/Intake and Output Vital Signs (last 24 hours): Temp Pulse Resp BP Pulse Ox 98.1 F 17 L 17 167/75 H 97 01/16/18 12:20 01/16/18 12:20 01/16/18 12:20 01/16/18 12:20 01/16/18 12:20 - Medications Medications: Current Medications Acetaminophen (Tylenol 325mg Tab) 650 mg PO Q6 PRN PRN Reason: Pain, moderate (4-7) Last Admin: 01/16/18 04:10 Dose: 650 mg Albuterol (Ventolin Hfa 90 Mcg/Actuation (8 G)) 2 puff INH RQ4 PRN PRN Reason: Shortness of Breath Amlodipine Besylate (Norvasc) 5 mg PO DAILY [facility] Last Admin: 01/16/18 09:31 Dose: 5 mg Aspirin (Ecotrin) 81 mg PO DAILY [facility] Last Admin: 01/16/18 09:30 Dose: 81 mg Famotidine (Pepcid) 20 mg PO DAILY [facility] Last Admin: 01/16/18 09:32 Dose: 20 mg Home Med (Insulin Glargine,Hum.Rec.Anlog [Heath Keane]) 70 units SQ HS [facility] Last Admin: 01/15/18 21:19 Dose: 70 units Insulin Human Lispro (Humalog) 14 units SC BRK [facility] Last Admin: 01/16/18 09:32 Dose: 14 units Insulin Human Lispro (Humalog) 24 units SC DIN [facility] Last Admin: 01/15/18 16:59 Dose: Not Given Insulin Human Lispro (Humalog) 18 units SC ACL [facility] Last Admin: 01/16/18 12:35 Dose: 18 units Latanoprost (Xalatan Opht) 1 drop OU HS [facility] Last Admin: 01/15/18 21:17 Dose: 1 drop Losartan Potassium (Cozaar) 100 mg PO DAILY [facility] Last Admin: 01/16/18 09:30 Dose: 100 mg Metoprolol Tartrate (Lopressor) 100 mg PO DAILY [facility] Last Admin: 01/16/18 09:32 Dose: 100 mg Ondansetron HCl (Zofran Inj) 4 mg IVP Q6 PRN PRN Reason: Nausea/Vomiting Last Admin: 01/15/18 10:01 Dose: 4 mg Sitagliptin Phosphate (Januvia) 25 mg PO DAILY [facility] Last Admin: 01/16/18 09:30 Dose: 25 mg Tramadol HCl (Ultram) 50 mg PO Q6 PRN PRN Reason: Pain, severe (8-10) Last Admin: 01/16/18 13:47 Dose: 50 mg - Labs Labs: 01/14/18 05:16 01/16/18 13:00 Assessment and Plan - Assessment and Plan (Free Text) Assessment: CKD IVETT? HTN uncontrolled Nephrology Hydration W/U in process Meds adjusted COPD Pulmonary CAD S/P CABG Stent Cardiology
[2018-01-16] MEDS: Lidocaine 5% Patch TD SCH (17:49)
[2018-01-16] MEDS: Latanoprost 0.005% Opht SOUTION OU SCH (21:28)
[2018-01-16] MEDS: INSULIN GLARGINE HUM REC ANLOG 70 UNIT SQ SCH (21:32)
[2018-01-17] MEDS: Lidocaine 5% Patch TD SCH (09:00)
[2018-01-17] MEDS: Insulin Lispro (humaLOG) 100 Units/ml Inj SC SCH ×3 (09:00→17:08)
--- NOTE | 2018-01-17 09:10 | CP.PCM.PN ---
Subjective - Date & Time of Evaluation Date of Evaluation: 01/17/18 Time of Evaluation: 08:45 - Subjective Subjective: C/o back pain last night. No SOB Objective - Vital Signs/Intake and Output Vital Signs (last 24 hours): Temp Pulse Resp BP Pulse Ox 97.5 F L 88 18 179/90 H 99 01/17/18 08:00 01/17/18 08:59 01/17/18 08:00 01/17/18 08:59 01/17/18 08:00 - Medications Medications: Current Medications Acetaminophen (Tylenol 325mg Tab) 650 mg PO Q6 PRN PRN Reason: Pain, moderate (4-7) Last Admin: 01/16/18 04:10 Dose: 650 mg Albuterol (Ventolin Hfa 90 Mcg/Actuation (8 G)) 2 puff INH RQ4 PRN PRN Reason: Shortness of Breath Amlodipine Besylate (Norvasc) 5 mg PO DAILY [facility] Last Admin: 01/17/18 08:59 Dose: 5 mg Aspirin (Ecotrin) 81 mg PO DAILY [facility] Last Admin: 01/17/18 08:59 Dose: 81 mg Famotidine (Pepcid) 20 mg PO DAILY [facility] Last Admin: 01/17/18 08:59 Dose: 20 mg Home Med (Insulin Glargine,Hum.Rec.Anlog [Heath Keane]) 70 units SQ HS [facility] Last Admin: 01/16/18 21:32 Dose: 70 units Insulin Human Lispro (Humalog) 14 units SC BRK [facility] Last Admin: 01/17/18 09:00 Dose: 14 units Insulin Human Lispro (Humalog) 24 units SC DIN [facility] Last Admin: 01/16/18 17:50 Dose: 24 units Insulin Human Lispro (Humalog) 18 units SC ACL [facility] Last Admin: 01/16/18 12:35 Dose: 18 units Latanoprost (Xalatan Opht) 1 drop OU HS [facility] Last Admin: 01/16/18 21:28 Dose: 1 drop Lidocaine (Lidoderm) 1 ea TD DAILY [facility] Last Admin: 01/17/18 09:00 Dose: Not Given Losartan Potassium (Cozaar) 100 mg PO DAILY [facility] Last Admin: 01/17/18 08:59 Dose: 100 mg Metoprolol Tartrate (Lopressor) 100 mg PO DAILY [facility] Last Admin: 01/17/18 08:59 Dose: 100 mg Ondansetron HCl (Zofran Inj) 4 mg IVP Q6 PRN PRN Reason: Nausea/Vomiting Last Admin: 01/15/18 10:01 Dose: 4 mg Sitagliptin Phosphate (Januvia) 25 mg PO DAILY [facility] Last Admin: 01/17/18 08:59 Dose: 25 mg Tramadol HCl (Ultram) 50 mg PO Q6 PRN PRN Reason: Pain, severe (8-10) Last Admin: 01/17/18 02:40 Dose: 50 mg - Labs Labs: 01/14/18 05:16 01/16/18 13:00 - Constitutional Appears: No Acute Distress - Head Exam Head Exam: NORMAL INSPECTION, NORMOCEPHALIC - Eye Exam Eye Exam: Normal appearance - Neck Exam Additional comments: No JVD - Respiratory Exam Respiratory Exam: NORMAL BREATHING PATTERN Additional comments: Lungs clear - Cardiovascular Exam Cardiovascular Exam: REGULAR RHYTHM - Extremities Exam Additional comments: No edema or cyanosis Assessment and Plan - Assessment and Plan (Free Text) Assessment: Stage 1V kidney dis. Renal function is stable Cr, clearance is 24 cc/ min. Result of total protein is penfing HTN. BP remains high Will increase Norvasc to 10 mg/da Plan: Monitor BP Awaiting serplpgies report. Low salt & low protein diet explained
--- NOTE | 2018-01-17 18:09 | CP.PCM.PN ---
Subjective - Date & Time of Evaluation Date of Evaluation: 01/17/18 Time of Evaluation: 22:22 - Subjective Subjective: Above noted Objective - Vital Signs/Intake and Output Vital Signs (last 24 hours): Temp Pulse Resp BP Pulse Ox 98.3 F 62 18 170/85 H 99 01/17/18 17:25 01/17/18 17:25 01/17/18 17:25 01/17/18 17:25 01/17/18 17:25 - Medications Medications: Current Medications Acetaminophen (Tylenol 325mg Tab) 650 mg PO Q6 PRN PRN Reason: Pain, moderate (4-7) Last Admin: 01/16/18 04:10 Dose: 650 mg Albuterol (Ventolin Hfa 90 Mcg/Actuation (8 G)) 2 puff INH RQ4 PRN PRN Reason: Shortness of Breath Amlodipine Besylate (Norvasc) 10 mg PO DAILY [facility] Aspirin (Ecotrin) 81 mg PO DAILY [facility] Last Admin: 01/17/18 08:59 Dose: 81 mg Famotidine (Pepcid) 20 mg PO DAILY [facility] Last Admin: 01/17/18 08:59 Dose: 20 mg Home Med (Insulin Glargine,Hum.Rec.Anlog [Heath Keane]) 70 units SQ HS [facility] Last Admin: 01/16/18 21:32 Dose: 70 units Insulin Human Lispro (Humalog) 14 units SC BRK [facility] Last Admin: 01/17/18 09:00 Dose: 14 units Insulin Human Lispro (Humalog) 24 units SC DIN [facility] Last Admin: 01/17/18 17:08 Dose: Not Given Insulin Human Lispro (Humalog) 18 units SC ACL [facility] Last Admin: 01/17/18 12:31 Dose: 18 units Latanoprost (Xalatan Opht) 1 drop OU HS [facility] Last Admin: 01/16/18 21:28 Dose: 1 drop Lidocaine (Lidoderm) 1 ea TD DAILY [facility] Last Admin: 01/17/18 09:00 Dose: Not Given Losartan Potassium (Cozaar) 100 mg PO DAILY [facility] Last Admin: 01/17/18 08:59 Dose: 100 mg Metoprolol Tartrate (Lopressor) 100 mg PO DAILY [facility] Last Admin: 01/17/18 08:59 Dose: 100 mg Ondansetron HCl (Zofran Inj) 4 mg IVP Q6 PRN PRN Reason: Nausea/Vomiting Last Admin: 01/17/18 14:36 Dose: 4 mg Sitagliptin Phosphate (Januvia) 25 mg PO DAILY [facility] Last Admin: 01/17/18 08:59 Dose: 25 mg Tramadol HCl (Ultram) 50 mg PO Q6 PRN PRN Reason: Pain, severe (8-10) Last Admin: 01/17/18 02:40 Dose: 50 mg - Labs Labs: 01/14/18 05:16 01/16/18 13:00 - Respiratory Exam Respiratory Exam: NORMAL BREATHING PATTERN - Cardiovascular Exam Cardiovascular Exam: REGULAR RHYTHM - GI/Abdominal Exam GI & Abdominal Exam: Normal Bowel Sounds Assessment and Plan - Assessment and Plan (Free Text) Assessment: CKD IVETT? Anemia Diabetic nephropathy HTN uncontrolled Nephrology Hydration W/U in process Meds adjusted Back pain Physiatry Wet heat COPD Pulmonary CAD S/P CABG Stent Cardiology
[2018-01-17] MEDS ORDERED: Sodium Chloride 0.45% 1,000 ML IV SCH (20:45)
[2018-01-17] MEDS: Latanoprost 0.005% Opht SOUTION OU SCH (21:22)
[2018-01-17] MEDS: INSULIN GLARGINE HUM REC ANLOG 70 UNIT SQ SCH (21:59)
[2018-01-18 05:30] LABS: HEMOGLOBIN 11.1 g/dL (12.0-16.0); MEAN CELL VOLUME 82.3 fl (81.0-99.0); MEAN CORPUSCULAR HEMOGLOBIN 27.2 pg (27.0-31.0); RBC 4.1 Mil/uL (3.80-5.20); RED CELL DISTRIBUTION WIDTH 13.8 % (11.5-14.5); WHITE BLOOD COUNT 10.3 K/uL (4.8-10.8)
[2018-01-18 06:10] LABS: ALB/GLOB RATIO 0.9 (1.0-2.1); ALBUMIN 3.6 g/dL (3.5-5.0); CALCIUM 9.9 mg/dL (8.4-10.2)
[2018-01-18 09:05] LABS: CALCIUM 10.1 mg/dL (8.4-10.2)
[2018-01-18] MEDS: Insulin Lispro (humaLOG) 100 Units/ml Inj SC SCH ×3 (09:33→18:01)
[2018-01-18] MEDS: Lidocaine 5% Patch TD SCH ×2 (09:36→10:57)
--- NOTE | 2018-01-18 09:44 | CP.PCM.PN ---
Subjective - Date & Time of Evaluation Date of Evaluation: 01/18/18 Time of Evaluation: 09:00 - Subjective Subjective: Had some Lt flank pain again yesterday and last noght No persp or vomitting associated with it No chills or fever Renal ultrasound had no shown any hydronephrosis BP 160/70mm Hg (On 10 mg of Amlodipine) No signs of CHF Labs show after hydration GFR has settled around 15 ml/min (Creatinin 3.6-3.7 mg) CT chest shows chr changes Stable from cardiac point of view Objective - Vital Signs/Intake and Output Vital Signs (last 24 hours): Temp Pulse Resp BP Pulse Ox 98.5 F 76 18 179/78 H 96 01/18/18 05:19 01/18/18 09:37 01/18/18 05:19 01/18/18 09:37 01/18/18 05:19 - Medications Medications: Current Medications Acetaminophen (Tylenol 325mg Tab) 650 mg PO Q6 PRN PRN Reason: Pain, moderate (4-7) Last Admin: 01/16/18 04:10 Dose: 650 mg Albuterol (Ventolin Hfa 90 Mcg/Actuation (8 G)) 2 puff INH RQ4 PRN PRN Reason: Shortness of Breath Amlodipine Besylate (Norvasc) 10 mg PO DAILY [facility] Last Admin: 01/18/18 09:37 Dose: 10 mg Aspirin (Ecotrin) 81 mg PO DAILY [facility] Last Admin: 01/17/18 08:59 Dose: 81 mg Famotidine (Pepcid) 20 mg PO DAILY [facility] Last Admin: 01/18/18 09:37 Dose: 20 mg Home Med (Insulin Glargine,Hum.Rec.Anlog [Heath Keane]) 70 units SQ HS [facility] Last Admin: 01/17/18 21:59 Dose: 70 units Sodium Chloride (Sodium Chloride 0.45%) 1,000 mls @ 40 mls/hr IV .Q24H [facility] Stop: 01/18/18 20:34 Last Admin: 01/17/18 21:00 Dose: 40 mls/hr Insulin Human Lispro (Humalog) 14 units SC BRK [facility] Last Admin: 01/18/18 09:33 Dose: 14 units Insulin Human Lispro (Humalog) 24 units SC DIN [facility] Last Admin: 01/17/18 17:08 Dose: Not Given Insulin Human Lispro (Humalog) 18 units SC ACL [facility] Last Admin: 01/17/18 12:31 Dose: 18 units Latanoprost (Xalatan Opht) 1 drop OU HS [facility] Last Admin: 01/17/18 21:22 Dose: 1 drop Lidocaine (Lidoderm) 1 ea TD DAILY [facility] Last Admin: 01/18/18 09:36 Dose: Not Given Losartan Potassium (Cozaar) 100 mg PO DAILY [facility] Last Admin: 01/18/18 09:32 Dose: 100 mg Metoprolol Tartrate (Lopressor) 100 mg PO DAILY [facility] Last Admin: 01/18/18 09:36 Dose: 100 mg Ondansetron HCl (Zofran Inj) 4 mg IVP Q6 PRN PRN Reason: Nausea/Vomiting Last Admin: 01/17/18 14:36 Dose: 4 mg Sitagliptin Phosphate (Januvia) 25 mg PO DAILY [facility] Last Admin: 01/18/18 09:36 Dose: 25 mg Tramadol HCl (Ultram) 50 mg PO Q6 PRN PRN Reason: Pain, severe (8-10) Last Admin: 01/18/18 09:30 Dose: 50 mg - Labs Labs: 01/18/18 04:25 01/18/18 08:47
--- NOTE | 2018-01-18 10:21 | PQF ---
PROVIDER RESPONSE TEXT: Asthma has been mild/intermittent. COPD also categorized as mild based on PFT. REVIEWER QUERY TEXT: Asthma Specificity and Type Asthma is documented in the Medical Record. 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 She claims to continue using her inhalers as prescribed, but on presentation only a rescue inh aler was noted. She did have a LABA/ICS inhaler prescribed in the past (Breo) which she apparently mcdowell s not been using Dxs. include; (3) Dyspnea on exertion Status: Chronic Priority: High (4) Asthma Status: Chronic Priority: High (5) COPD (chronic obstructive pulmonary disease) Status: Chronic Priority: High Plan: Asthma/COPD overlap, syndrome with PFT in 2017 showing mild obstructive disease. Remains symp tomatic on exertion only and needs updated medication review. May be less than compliant with prior r egimen (no LABA/ICS listed on admission). -Ventolin INH Q4 PRN The patient's Clinical Indicators include: - Query created by: Lesly Lackey on 01/18/2018 9:19 AM Electronically signed by: Jesús Reaves MD 01/18/2018 10:19 AM
--- NOTE | 2018-01-18 11:07 | CARD ---
APPROVED REPORT Date of service: 01/15/2018 EKG Measurement Heart [id number] <Conclusion> Normal sinus rhythm Septal infarct, age undetermined ST & T wave abnormality, consider lateral ischemia Abnormal ECG
--- NOTE | 2018-01-18 13:55 | CP.PCM.PN ---
Subjective - Date & Time of Evaluation Date of Evaluation: 01/18/18 Time of Evaluation: 01:40 - Subjective Subjective: Still c/o Lt sided back pain. Hurts more when she is trying to bend. Objective - Vital Signs/Intake and Output Vital Signs (last 24 hours): Temp Pulse Resp BP Pulse Ox 98.2 F 62 18 173/77 H 96 01/18/18 12:22 01/18/18 12:22 01/18/18 12:22 01/18/18 12:22 01/18/18 12:22 - Medications Medications: Current Medications Acetaminophen (Tylenol 325mg Tab) 650 mg PO Q6 PRN PRN Reason: Pain, moderate (4-7) Last Admin: 01/16/18 04:10 Dose: 650 mg Albuterol (Ventolin Hfa 90 Mcg/Actuation (8 G)) 2 puff INH RQ4 PRN PRN Reason: Shortness of Breath Amlodipine Besylate (Norvasc) 10 mg PO DAILY [facility] Last Admin: 01/18/18 09:37 Dose: 10 mg Aspirin (Ecotrin) 81 mg PO DAILY [facility] Last Admin: 01/18/18 10:59 Dose: 81 mg Famotidine (Pepcid) 20 mg PO DAILY [facility] Last Admin: 01/18/18 09:37 Dose: 20 mg Home Med (Insulin Glargine,Hum.Rec.Anlog [Heath Keane]) 70 units SQ HS [facility] Last Admin: 01/17/18 21:59 Dose: 70 units Sodium Chloride (Sodium Chloride 0.45%) 1,000 mls @ 40 mls/hr IV .Q24H [facility] Stop: 01/18/18 20:34 Last Admin: 01/17/18 21:00 Dose: 40 mls/hr Insulin Human Lispro (Humalog) 14 units SC BRK [facility] Last Admin: 01/18/18 09:33 Dose: 14 units Insulin Human Lispro (Humalog) 24 units SC DIN [facility] Last Admin: 01/17/18 17:08 Dose: Not Given Insulin Human Lispro (Humalog) 18 units SC ACL [facility] Last Admin: 01/18/18 12:50 Dose: 18 units Latanoprost (Xalatan Opht) 1 drop OU HS [facility] Last Admin: 01/17/18 21:22 Dose: 1 drop Lidocaine (Lidoderm) 1 ea TD DAILY [facility] Last Admin: 01/18/18 10:57 Dose: 1 ea Losartan Potassium (Cozaar) 100 mg PO DAILY [facility] Last Admin: 01/18/18 09:32 Dose: 100 mg Metoprolol Tartrate (Lopressor) 100 mg PO DAILY [facility] Last Admin: 01/18/18 09:36 Dose: 100 mg Ondansetron HCl (Zofran Inj) 4 mg IVP Q6 PRN PRN Reason: Nausea/Vomiting Last Admin: 01/17/18 14:36 Dose: 4 mg Sitagliptin Phosphate (Januvia) 25 mg PO DAILY [facility] Last Admin: 01/18/18 09:36 Dose: 25 mg Tramadol HCl (Ultram) 50 mg PO Q6 PRN PRN Reason: Pain, severe (8-10) Last Admin: 01/18/18 09:30 Dose: 50 mg - Labs Labs: 01/18/18 04:25 01/18/18 08:47 - Head Exam Head Exam: NORMAL INSPECTION - Eye Exam Eye Exam: Normal appearance - ENT Exam ENT Exam: Mucous Membranes Moist - Neck Exam Additional comments: No jugular venous distension - Respiratory Exam Respiratory Exam: NORMAL BREATHING PATTERN Additional comments: Lungs clear - Cardiovascular Exam Cardiovascular Exam: REGULAR RHYTHM - GI/Abdominal Exam GI & Abdominal Exam: Soft Additional comments: Nontender - Extremities Exam Additional comments: No edema - Back Exam Additional comments: Tenderness overLt hip/pelvis area Assessment and Plan - Assessment and Plan (Free Text) Assessment: Stage 1V kidney dis renal function is stable HTN has received Norvasc 10 mg today Will monitor Back pain CAF Plan: Serologies still pending Will order XR of Lt pelvis
--- NOTE | 2018-01-18 14:39 | US ---
Date of service: 01/18/2018 HISTORY: n/v COMPARISON: Abdomen ultrasound 05/29/2017, MRCP 06/02/2017 and distant prior abdomen/pelvis CT 05/21/2015. TECHNIQUE: Sonographic evaluation of the abdomen. FINDINGS: LIVER: Measures 15.5 cm. Majority of the liver is normal in overall echogenicity with exception of a small cystic focus at the right lobe laterally with internal echoes measuring 1.6 x 1.4 x 1.5 cm representing a complex cyst dating back at least to prior abdomen pelvis CT examination from 05/21/2015. No intrahepatic biliary dilatation appreciated. GALLBLADDER: Gallbladder is mildly distended with likely tumefactive sludge identified in the lumen. There is no color blood flow appreciated within this ovoid non mobile structure with sludging calculi demonstrated in prior recent MRCP or abdomen ultrasound noted above. COMMON BILE DUCT: Measures 5.7 mm. No stones. No dilatation. PANCREAS: The tail of the pancreas is obscured by overlying bowel gas with remainder unremarkable. RIGHT KIDNEY: Measures 9.7 x 6.2 x 4.6cm. Normal echogenicity. No calculus, mass, or hydronephrosis. LEFT KIDNEY: Measures 10.0 x 6.4 x 6.1cm. A small cyst seen at the midpole left renal cortex measuring 1.2 x 1.1 x 1.1 cm with an additional simple cyst seen slightly inferior to it measure 1.5 x 1.3 x 1.6 cm.. No calculus, mass, or hydronephrosis. SPLEEN: Normal in size and contour. No definite mass identified. AORTA: No aneurysmal dilatation. IVC: Unremarkable. OTHER FINDINGS: None. IMPRESSION: No obstructive uropathy bilaterally. Small simple cysts are identified at the mid and lower pole left kidney. Two effective sludge is identified in the gallbladder. Normal caliber CBD. Complex cyst right lobe liver posteriorly, 1.6 cm greatest dimension. Partial imaging of the pancreas.
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
--- NOTE | 2018-01-18 20:40 | CP.PCM.PN ---
Subjective - Date & Time of Evaluation Date of Evaluation: 01/18/18 Time of Evaluation: 22:22 - Subjective Subjective: US Abd ??? Objective - Vital Signs/Intake and Output Vital Signs (last 24 hours): Temp Pulse Resp BP Pulse Ox 98.4 F 75 20 147/80 98 01/18/18 19:23 01/18/18 19:23 01/18/18 19:23 01/18/18 19:23 01/18/18 19:23 Intake and Output: 01/18/18 01/19/18 18:59 06:59 Intake Total 1200 Balance 1200 - Medications Medications: Current Medications Acetaminophen (Tylenol 325mg Tab) 650 mg PO Q6 PRN PRN Reason: Pain, moderate (4-7) Last Admin: 01/16/18 04:10 Dose: 650 mg Albuterol (Ventolin Hfa 90 Mcg/Actuation (8 G)) 2 puff INH RQ4 PRN PRN Reason: Shortness of Breath Amlodipine Besylate (Norvasc) 10 mg PO DAILY [facility] Last Admin: 01/18/18 09:37 Dose: 10 mg Aspirin (Ecotrin) 81 mg PO DAILY [facility] Last Admin: 01/18/18 10:59 Dose: 81 mg Famotidine (Pepcid) 20 mg PO DAILY [facility] Last Admin: 01/18/18 09:37 Dose: 20 mg Home Med (Insulin Glargine,Hum.Rec.Anlog [Heath Keane]) 70 units SQ HS [facility] Last Admin: 01/17/18 21:59 Dose: 70 units Insulin Human Lispro (Humalog) 14 units SC BRK [facility] Last Admin: 01/18/18 09:33 Dose: 14 units Insulin Human Lispro (Humalog) 24 units SC DIN [facility] Last Admin: 01/18/18 18:01 Dose: 24 units Insulin Human Lispro (Humalog) 18 units SC ACL [facility] Last Admin: 01/18/18 12:50 Dose: 18 units Latanoprost (Xalatan Opht) 1 drop OU HS [facility] Last Admin: 01/17/18 21:22 Dose: 1 drop Lidocaine (Lidoderm) 1 ea TD DAILY [facility] Last Admin: 01/18/18 10:57 Dose: 1 ea Losartan Potassium (Cozaar) 100 mg PO DAILY [facility] Last Admin: 01/18/18 09:32 Dose: 100 mg Metoprolol Tartrate (Lopressor) 100 mg PO DAILY [facility] Last Admin: 01/18/18 09:36 Dose: 100 mg Ondansetron HCl (Zofran Inj) 4 mg IVP Q6 PRN PRN Reason: Nausea/Vomiting Last Admin: 01/17/18 14:36 Dose: 4 mg Sitagliptin Phosphate (Januvia) 25 mg PO DAILY [facility] Last Admin: 01/18/18 09:36 Dose: 25 mg Tramadol HCl (Ultram) 50 mg PO Q6 PRN PRN Reason: Pain, severe (8-10) Last Admin: 01/18/18 09:30 Dose: 50 mg - Labs Labs: 01/18/18 04:25 01/18/18 08:47 - Respiratory Exam Respiratory Exam: NORMAL BREATHING PATTERN - Cardiovascular Exam Cardiovascular Exam: REGULAR RHYTHM - GI/Abdominal Exam GI & Abdominal Exam: Normal Bowel Sounds Assessment and Plan - Assessment and Plan (Free Text) Assessment: Back pain Physiatry Wet heat GB Dx? GI CKD IVETT? Anemia Diabetic nephropathy HTN uncontrolled Nephrology Hydration W/U in process Meds adjusted COPD Pulmonary CAD S/P CABG Stent Cardiology
[2018-01-18] MEDS: Latanoprost 0.005% Opht SOUTION OU SCH (21:22)
[2018-01-18] MEDS: INSULIN GLARGINE HUM REC ANLOG 70 UNIT SQ SCH (21:37)
[2018-01-19 06:05] LABS: HEMOGLOBIN 11.1 g/dL (12.0-16.0); MEAN CELL VOLUME 83.1 fl (81.0-99.0); MEAN CORPUSCULAR HGB CONC 32.4 g/dL (33.0-37.0); RBC 4.1 Mil/uL (3.80-5.20); WHITE BLOOD COUNT 10.3 K/uL (4.8-10.8)
[2018-01-19 06:16] LABS: ALB/GLOB RATIO 0.9 (1.0-2.1); ALBUMIN 3.5 g/dL (3.5-5.0); CALCIUM 9.7 mg/dL (8.4-10.2)
[2018-01-19] MEDS: Insulin Lispro (humaLOG) 100 Units/ml Inj SC SCH ×3 (09:26→17:57)
[2018-01-19] MEDS: Lidocaine 5% Patch TD SCH (09:26)
--- NOTE | 2018-01-19 11:35 | CP.PCM.PN ---
Subjective - Date & Time of Evaluation Date of Evaluation: 01/19/18 Time of Evaluation: 11:35 - Subjective Subjective: Pt c/o nausea today. No vomiting. No SOB Objective - Vital Signs/Intake and Output Vital Signs (last 24 hours): Temp Pulse Resp BP Pulse Ox 98.4 F 76 20 170/83 H 98 01/19/18 08:28 01/19/18 09:25 01/19/18 08:28 01/19/18 09:25 01/19/18 08:28 Intake and Output: 01/19/18 01/19/18 06:59 18:59 Intake Total 1200 Balance 1200 - Medications Medications: Current Medications Acetaminophen (Tylenol 325mg Tab) 650 mg PO Q6 PRN PRN Reason: Pain, moderate (4-7) Last Admin: 01/16/18 04:10 Dose: 650 mg Albuterol (Ventolin Hfa 90 Mcg/Actuation (8 G)) 2 puff INH RQ4 PRN PRN Reason: Shortness of Breath Amlodipine Besylate (Norvasc) 10 mg PO DAILY [facility] Last Admin: 01/19/18 09:25 Dose: 10 mg Aspirin (Ecotrin) 81 mg PO DAILY [facility] Last Admin: 01/19/18 09:24 Dose: 81 mg Famotidine (Pepcid) 20 mg PO DAILY [facility] Last Admin: 01/19/18 09:24 Dose: 20 mg Home Med (Insulin Glargine,Hum.Rec.Anlog [Heath Keane]) 70 units SQ HS [facility] Last Admin: 01/18/18 21:37 Dose: Not Given Insulin Human Lispro (Humalog) 14 units SC BRK [facility] Last Admin: 01/19/18 09:26 Dose: 14 units Insulin Human Lispro (Humalog) 24 units SC DIN [facility] Last Admin: 01/18/18 18:01 Dose: 24 units Insulin Human Lispro (Humalog) 18 units SC ACL [facility] Last Admin: 01/18/18 12:50 Dose: 18 units Latanoprost (Xalatan Opht) 1 drop OU HS [facility] Last Admin: 01/18/18 21:22 Dose: 1 drop Lidocaine (Lidoderm) 1 ea TD DAILY [facility] Last Admin: 01/19/18 09:26 Dose: Not Given Losartan Potassium (Cozaar) 100 mg PO DAILY [facility] Last Admin: 01/19/18 09:24 Dose: 100 mg Metoprolol Tartrate (Lopressor) 100 mg PO DAILY [facility] Last Admin: 01/19/18 09:17 Dose: 100 mg Ondansetron HCl (Zofran Inj) 4 mg IVP Q6 PRN PRN Reason: Nausea/Vomiting Last Admin: 01/19/18 09:33 Dose: 4 mg Sitagliptin Phosphate (Januvia) 25 mg PO DAILY [facility] Last Admin: 01/19/18 09:18 Dose: 25 mg Tramadol HCl (Ultram) 50 mg PO Q6 PRN PRN Reason: Pain, severe (8-10) Last Admin: 01/19/18 07:00 Dose: 50 mg - Labs Labs: 01/19/18 04:20 01/19/18 04:20 - Head Exam Head Exam: NORMAL INSPECTION - Eye Exam Eye Exam: Normal appearance Additional comments: Conjunctiva pale - ENT Exam ENT Exam: Mucous Membranes Moist - Respiratory Exam Respiratory Exam: NORMAL BREATHING PATTERN Additional comments: Lungs clear - Cardiovascular Exam Cardiovascular Exam: REGULAR RHYTHM Additional comments: No rub - Extremities Exam Additional comments: No ECC Assessment and Plan - Assessment and Plan (Free Text) Assessment: Stage 1V kidney disease. Slight increase in Creat today. No acidosis & K+ remains normal . Observe HTN BP was lower yesterday after receiving Norvasc . Continue to monitor Plan: Monitor Creat, BP Total protein was not reported on 24 hr urine. All serologies are negative.
--- NOTE | 2018-01-19 15:07 | PQF ---
PROVIDER RESPONSE TEXT: COPD and asthma are both in stable condition at the time of admission. REVIEWER QUERY TEXT: Clarification of Clinical Diagnostic Findings 2 (two) queries as follows: 1. Please clarify if Mild/Intermittent Asthma is stable or in Exacerbation etc. 2. Please clarify if Mild COPD is stable or in Exacerbation during this encounter? Query response: Asthma has been mild/intermittent. 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 She claims to continue using her inhalers as prescribed, but on presentation only a rescue inh aler was noted. She did have a LABA/ICS inhaler prescribed in the past (Breo) which she apparently mcdowell s not been using Dxs. include; (3) Dyspnea on exertion Status: Chronic Priority: High (4) Asthma Status: Chronic Priority: High (5) COPD (chronic obstructive pulmonary disease) Status: Chronic Priority: High Plan: Asthma/COPD overlap, syndrome with PFT in 2017 showing mild obstructive disease. Remains symp tomatic on exertion only and needs updated medication review. May be less than compliant with prior r egimen (no LABA/ICS listed on admission). -Ventolin INH Q4 PRN The patient's Clinical Indicators include: - Query created by: Lesly Lackey on 01/19/2018 2:56 PM Electronically signed by: Jesús Reaves MD 01/19/2018 3:04 PM
--- NOTE | 2018-01-19 17:09 | CP.PCM.CON ---
History of Present Illness - History of Present Illness History of Present Illness: Dr Kamara PMR consultation on Celia Moreno, born 1945 who has been admitted to [facility] for low back pain that had been present for approximately 3 weeks. Denies radicular component. No weakness in legs. Pelvic x-ray showed evidence of DJD Normally ambulating without AD or with a cane Tramadol helped a lot but may have lead to some nausea I agree with the usage of this medication for Celia talking to her about therapy did not get too far. We haven't fixed anything per se but she is feeling better and stated that if she was home now she would not go to the hospital able to ambulate around the arteaga ad ivan continue current medications no focal strength deficit agree with Tramadol prn for d/c home. Past Patient History - Infectious Disease Hx of Infectious Diseases: None - Tetanus Immunizations Tetanus Immunization: Unknown - Past Medical History & Family History Past Medical History?: Yes - Past Social History Smoking Status: Former Smoker (discontinued about 15 years ago) Chewing Tobacco Use: No Cigar Use: No Alcohol: None (former moderate to heavy alcohol intake, dc'd about 15 years ago) Drugs: Denies - CARDIAC Hx Cardiac Disorders: Yes (CAD, CABG x4 (2012), PTCA x 2 (2016)) Hx Hypercholesterolemia: Yes - PULMONARY Hx Chronic Obstructive Pulmonary Disease (COPD): Yes (asthma) - NEUROLOGICAL HX Cerebrovascular Accident: Yes (TIA) - HEENT Hx Cataracts: Yes (had surgery) Hx Glaucoma: Yes - RENAL Hx Renal Failure: Yes (CKD IV) - ENDOCRINE/METABOLIC Hx Diabetes Mellitus Type 2: Yes - HEMATOLOGICAL/ONCOLOGICAL Hx Blood Transfusions: No Other/Comment: DVT at the age of 28yrs old. - INTEGUMENTARY Hx Dermatological Problems: No - MUSCULOSKELETAL/RHEUMATOLOGICAL Hx Falls: No Hx Osteoporosis: Yes - GASTROINTESTINAL Hx Gastroesophageal Reflux: Yes - GENITOURINARY/GYNECOLOGICAL Hx Genitourinary Disorders: No - PSYCHIATRIC Hx Psychophysiologic Disorder: No Hx Substance Use: No - SURGICAL HISTORY Hx Cataract Extraction: Yes Hx Coronary Artery Bypass Graft: Yes (quadruple) Hx Coronary Stent: Yes (x2) Hx Hysterectomy: Yes Hx Tonsillectomy: Yes - ANESTHESIA Hx Anesthesia: Yes Hx Anesthesia Reactions: No Hx Malignant Hyperthermia: No Meds Allergies/Adverse Reactions: Allergies Allergy/AdvReac Type Severity Reaction Status Date / Time Penicillins Allergy RASH Verified 05/19/17 22:33 shrimp AdvReac SWELLING Verified 05/21/17 10:24 - Medications Medications: Current Medications Acetaminophen (Tylenol 325mg Tab) 650 mg PO Q6 PRN PRN Reason: Pain, moderate (4-7) Last Admin: 01/16/18 04:10 Dose: 650 mg Albuterol (Ventolin Hfa 90 Mcg/Actuation (8 G)) 2 puff INH RQ4 PRN PRN Reason: Shortness of Breath Amlodipine Besylate (Norvasc) 10 mg PO DAILY [facility] Last Admin: 01/19/18 09:25 Dose: 10 mg Aspirin (Ecotrin) 81 mg PO DAILY [facility] Last Admin: 01/19/18 09:24 Dose: 81 mg Famotidine (Pepcid) 20 mg PO DAILY [facility] Last Admin: 01/19/18 09:24 Dose: 20 mg Home Med (Insulin Glargine,Hum.Rec.Anlog [Heath Keane]) 70 units SQ HS [facility] Last Admin: 01/18/18 21:37 Dose: Not Given Insulin Human Lispro (Humalog) 14 units SC BRK [facility] Last Admin: 01/19/18 09:26 Dose: 14 units Insulin Human Lispro (Humalog) 24 units SC DIN [facility] Last Admin: 01/18/18 18:01 Dose: 24 units Insulin Human Lispro (Humalog) 18 units SC ACL [facility] Last Admin: 01/19/18 12:51 Dose: 18 units Latanoprost (Xalatan Opht) 1 drop OU HS [facility] Last Admin: 01/18/18 21:22 Dose: 1 drop Lidocaine (Lidoderm) 1 ea TD DAILY [facility] Last Admin: 01/19/18 09:26 Dose: Not Given Losartan Potassium (Cozaar) 100 mg PO DAILY [facility] Last Admin: 01/19/18 09:24 Dose: 100 mg Metoprolol Tartrate (Lopressor) 100 mg PO DAILY [facility] Last Admin: 01/19/18 09:17 Dose: 100 mg Ondansetron HCl (Zofran Inj) 4 mg IVP Q6 PRN PRN Reason: Nausea/Vomiting Last Admin: 01/19/18 09:33 Dose: 4 mg Sitagliptin Phosphate (Januvia) 25 mg PO DAILY [facility] Last Admin: 01/19/18 09:18 Dose: 25 mg Tramadol HCl (Ultram) 50 mg PO Q6 PRN PRN Reason: Pain, severe (8-10) Last Admin: 01/19/18 07:00 Dose: 50 mg Results - Vital Signs Recent Vital Signs: Last Vital Signs Temp 97.8 F 01/19/18 16:22 Pulse 77 01/19/18 16:22 Resp 18 01/19/18 16:22 BP 147/80 01/19/18 16:22 Pulse Ox 97 01/19/18 16:22 - Labs Result Diagrams: 01/19/18 04:20 01/19/18 04:20 Labs: Laboratory Results - last 24 hr 01/18/18 01/19/18 01/19/18 21:31 04:20 04:20 WBC 10.3 RBC 4.10 Hgb 11.1 L Hct 34.1 MCV 83.1 MCH 27.0 MCHC 32.4 L RDW 14.0 Plt Count 300 Sodium 141 Potassium 4.1 Chloride 108 H Carbon Dioxide 25 Anion Gap 12 BUN 35 H Creatinine 4.3 H Est GFR ( Amer) 12 Est GFR (Non-Af Amer) 10 POC Glucose (mg/dL) 135 H Random Glucose 121 H Calcium 9.7 Total Bilirubin 0.2 AST 25 ALT 14 Alkaline Phosphatase 79 Total Protein 7.5 Albumin 3.5 Globulin 4.0 H Albumin/Globulin Ratio 0.9 L Amylase 105 Lipase 141 01/19/18 01/19/18 01/19/18 05:31 10:57 15:57 WBC RBC Hgb Hct MCV MCH MCHC RDW Plt Count Sodium Potassium Chloride Carbon Dioxide Anion Gap BUN Creatinine Est GFR ( Amer) Est GFR (Non-Af Amer) POC Glucose (mg/dL) 132 H 314 H 168 H Random Glucose Calcium Total Bilirubin AST ALT Alkaline Phosphatase Total Protein Albumin Globulin Albumin/Globulin Ratio Amylase Lipase
[2018-01-19] MEDS: Latanoprost 0.005% Opht SOUTION OU SCH (22:23)
[2018-01-19] MEDS: INSULIN GLARGINE HUM REC ANLOG 70 UNIT SQ SCH (22:24)
[2018-01-20 00:03] VITALS: RESP 18
--- NOTE | 2018-01-20 00:14 | CP.PCM.PN ---
Subjective - Date & Time of Evaluation Date of Evaluation: 01/19/18 Time of Evaluation: 22:22 - Subjective Subjective: Physiatry consult appreciated Creat 4.3 Objective - Vital Signs/Intake and Output Vital Signs (last 24 hours): Temp Pulse Resp BP Pulse Ox 98.2 F 77 18 146/76 99 01/20/18 00:03 01/20/18 00:03 01/20/18 00:03 01/20/18 00:03 01/20/18 00:03 Intake and Output: 01/19/18 01/20/18 18:59 06:59 Intake Total 1400 Balance 1400 - Medications Medications: Current Medications Acetaminophen (Tylenol 325mg Tab) 650 mg PO Q6 PRN PRN Reason: Pain, moderate (4-7) Last Admin: 01/16/18 04:10 Dose: 650 mg Albuterol (Ventolin Hfa 90 Mcg/Actuation (8 G)) 2 puff INH RQ4 PRN PRN Reason: Shortness of Breath Amlodipine Besylate (Norvasc) 10 mg PO DAILY [facility] Last Admin: 01/19/18 09:25 Dose: 10 mg Aspirin (Ecotrin) 81 mg PO DAILY [facility] Last Admin: 01/19/18 09:24 Dose: 81 mg Famotidine (Pepcid) 20 mg PO DAILY [facility] Last Admin: 01/19/18 09:24 Dose: 20 mg Home Med (Insulin Glargine,Hum.Rec.Anlog [Heath Keane]) 70 units SQ HS [facility] Last Admin: 01/19/18 22:24 Dose: Not Given Insulin Human Lispro (Humalog) 14 units SC BRK [facility] Last Admin: 01/19/18 09:26 Dose: 14 units Insulin Human Lispro (Humalog) 24 units SC DIN [facility] Last Admin: 01/19/18 17:57 Dose: 24 units Insulin Human Lispro (Humalog) 18 units SC ACL [facility] Last Admin: 01/19/18 12:51 Dose: 18 units Latanoprost (Xalatan Opht) 1 drop OU HS [facility] Last Admin: 01/19/18 22:23 Dose: 1 drop Lidocaine (Lidoderm) 1 ea TD DAILY [facility] Last Admin: 01/19/18 09:26 Dose: Not Given Losartan Potassium (Cozaar) 100 mg PO DAILY [facility] Last Admin: 01/19/18 09:24 Dose: 100 mg Metoprolol Tartrate (Lopressor) 100 mg PO DAILY [facility] Last Admin: 01/19/18 09:17 Dose: 100 mg Ondansetron HCl (Zofran Inj) 4 mg IVP Q6 PRN PRN Reason: Nausea/Vomiting Last Admin: 01/19/18 09:33 Dose: 4 mg Sitagliptin Phosphate (Januvia) 25 mg PO DAILY [facility] Last Admin: 01/19/18 09:18 Dose: 25 mg Tramadol HCl (Ultram) 50 mg PO Q6 PRN PRN Reason: Pain, severe (8-10) Last Admin: 01/19/18 22:32 Dose: 50 mg - Labs Labs: 01/19/18 04:20 01/19/18 04:20 - Respiratory Exam Respiratory Exam: NORMAL BREATHING PATTERN - Cardiovascular Exam Cardiovascular Exam: REGULAR RHYTHM - GI/Abdominal Exam GI & Abdominal Exam: Normal Bowel Sounds Assessment and Plan - Assessment and Plan (Free Text) Assessment: Back pain Physiatry Wet heat Tramadol Creat 4.3 CKD IVETT? Anemia Diabetic nephropathy HTN uncontrolled Nephrology Hydration W/U in process Meds adjusted GB Dx? COPD Pulmonary CAD S/P CABG Stent Cardiology
[2018-01-20 05:57] LABS: CALCIUM 9.6 mg/dL (8.4-10.2)
[2018-01-20] MEDS: Insulin Lispro (humaLOG) 100 Units/ml Inj SC SCH ×3 (08:35→11:16)
[2018-01-20] MEDS: Lidocaine 5% Patch TD SCH (09:01)
--- NOTE | 2018-01-20 11:52 | CP.PCM.PCO ---
Assessment & Plan - Assessment and Plan (Free Text) Assessment: pt. sitting up in bed, denies any c/o today serum creatinine 4.1- s/p 24 hr ua for protein/ creatinine above d/w - pt. cleared for discharge to Home today and to f/u renal fx outpatient with All meds erx to pharmacy pt. to f/u with and outpatient cont to monitor bmp outpatient Above d/w who agrees.
[2018-01-20 11:59] VITALS: BP 159/75; PULSE 61; TEMP 97.3; O2SAT 98
--- NOTE | 2018-01-20 16:08 | CP.PCM.PN ---
Subjective - Date & Time of Evaluation Date of Evaluation: 01/20/18 Time of Evaluation: 16:06 - Subjective Subjective: renal follow up note covering for Dr Richards no events overnight vitals reviewed heent normal op moist no jvd s1s2 present no resp distress abd soft nt nd skin normal psy cooperative no edema ao times 3 ckd stage 4/htn/chf cr is stable lytes reviewed volume status stable bp stable for disharge today recommend following up with dr richards opt Objective - Vital Signs/Intake and Output Vital Signs (last 24 hours): Temp Pulse Resp BP Pulse Ox 97.3 F L 61 18 159/75 H 98 01/20/18 11:58 01/20/18 11:58 01/20/18 11:58 01/20/18 11:58 01/20/18 11:58 - Labs Labs: 01/19/18 04:20 01/20/18 04:40
[2018-01-20 16:24] LABS: URINE CREATININE 82.6 mg/dL
[2018-01-20 17:24] LABS: URINE 24 HOUR TOTAL PROTEIN 9470.3 mg/24hr (42-225)
--- NOTE | 2018-01-20 18:39 | CP.PCM.PN ---
Subjective - Date & Time of Evaluation Date of Evaluation: 01/20/18 Time of Evaluation: 22:22 - Subjective Subjective: Above noted Objective - Vital Signs/Intake and Output Vital Signs (last 24 hours): Temp Pulse Resp BP Pulse Ox 97.3 F L 61 18 159/75 H 98 01/20/18 11:58 01/20/18 11:58 01/20/18 11:58 01/20/18 11:58 01/20/18 11:58 - Labs Labs: 01/19/18 04:20 01/20/18 15:12 - Respiratory Exam Respiratory Exam: NORMAL BREATHING PATTERN - Cardiovascular Exam Cardiovascular Exam: REGULAR RHYTHM - GI/Abdominal Exam GI & Abdominal Exam: Normal Bowel Sounds Assessment and Plan - Assessment and Plan (Free Text) Assessment: Back pain Physiatry Wet heat Tramadol Creat 4.1 CKD IVETT? Anemia Diabetic nephropathy HTN uncontrolled Nephrology Hydration W/U in process Meds adjusted GB Dx COPD Pulmonary CAD S/P CABG Stent Cardiology
[2018-01-21 01:06] LABS: ANCA SCREEN NEGATIVE (NEGATIVE)
== END 2018-01-20 14:27 | disposition home or self-care (01) | DRG 684 ==
LOC: H.ER 09:29 → H.ERHOLD 21:23 → H.TEL 23:54 → OBSVTOIN 01-15 11:17 → H.TEL 01-20 11:30
PROVIDERS: ADMIT Family Medicine Geriatric Medicine; ATTEND Family Medicine Geriatric Medicine
DX: N17.9 Acute kidney failure, unspecified (principal); I12.9 Hypertensive chronic kidney disease with stage 1 through stage 4 chronic kidney disease, or unspecified chronic kidney disease; N18.4 Chronic kidney disease, stage 4 (severe); J45.20 Mild intermittent asthma, uncomplicated; J44.9 Chronic obstructive pulmonary disease, unspecified; E11.22 Type 2 diabetes mellitus with diabetic chronic kidney disease; E11.21 Type 2 diabetes mellitus with diabetic nephropathy; E11.65 Type 2 diabetes mellitus with hyperglycemia; I25.10 Atherosclerotic heart disease of native coronary artery without angina pectoris; M81.0 Age-related osteoporosis without current pathological fracture; M54.5 Low back pain; K21.9 Gastro-esophageal reflux disease without esophagitis; E78.5 Hyperlipidemia, unspecified; E78.00 Pure hypercholesterolemia, unspecified; D64.9 Anemia, unspecified; Z95.1 Presence of aortocoronary bypass graft; Z95.5 Presence of coronary angioplasty implant and graft; Z86.718 Personal history of other venous thrombosis and embolism; Z86.73 Personal history of transient ischemic attack (TIA), and cerebral infarction without residual deficits; Z88.0 Allergy status to penicillin; Z91.013 Allergy to seafood; Z87.442 Personal history of urinary calculi; Z79.4 Long term (current) use of insulin; Z79.84 Long term (current) use of oral hypoglycemic drugs; Z79.02 Long term (current) use of antithrombotics/antiplatelets; Z79.82 Long term (current) use of aspirin; Z87.891 Personal history of nicotine dependence; Z90.710 Acquired absence of both cervix and uterus

== ENCOUNTER 2018-06-04 16:23 | Emergency (ER) | payer MEDICARE, BC ==
[2018-06-04 16:31] VITALS: BP 125/78; PULSE 80; RESP 16; TEMP 98.4; O2SAT 97; BMI 29.0
--- NOTE | 2018-06-04 18:02 | US ---
Date of service: 06/04/2018 PROCEDURE: Bilateral lower extremity venous duplex Doppler. HISTORY: lower extremity edema B/L, R/O DVT COMPARISON: 08/17/2016. Duplex venous sonography right lower extremity. TECHNIQUE: Bilateral common femoral, superficial femoral, popliteal and posterior tibial veins were evaluated. Flow was assessed with color Doppler, compressibility, assessment of phasic flow and augmentation response. FINDINGS: COMMON FEMORAL VEIN: Right CFV: Unremarkable. Left CFV: Unremarkable. SUPERFICIAL FEMORAL VEIN: Right SFV: Unremarkable. Left SFV: Unremarkable. POPLITEAL VEIN: Right Popliteal: Unremarkable. Left Popliteal: Unremarkable. POSTERIOR TIBIAL VEIN: Right PTV: Unremarkable. Left PTV: Unremarkable. OTHER FINDINGS: Morphologically, unremarkable lymph node(s) IMPRESSION: No evidence of deep venous thrombosis.
--- NOTE | 2018-06-04 18:59 | ED PDOC ---
Lower Extremity Pain/Injury Time Seen by Provider: 06/04/18 16:42 Chief Complaint (Nursing): Lower Extremity Problem/Injury Chief Complaint (Provider): Lower Extremity Problem/Injury History Per: Patient History/Exam Limitations: no limitations Onset/Duration Of Symptoms: Days (x1 month ) Current Symptoms Are (Timing): Still Present Additional Complaint(s): 73 year old female with a history of hypertension, hyperlipidemia, diabetes, DVT, CAD s/p CABG and stents presents to the ED with bilateral lower extremity swelling for approximately x1 month. Patient states she was hospitalized one month ago. At which time, her medications were changed. Since then, she began noticing lower extremity swelling with associated pain at night. Patient denies any recent long distance travel, immobilization, shortness of breath, chest pain, orthopnea or any other medical complaints. She was recently seen by book packer who felt that due to her medications, no changes need to be made. Patient is currently taking furosemide, Lasix, Norvasc, metoprolol, Januvia, and insulin. She has been taking Norvasc for 3-4 months. PMD: Jesús West Past Medical History Reviewed: Historical Data, Nursing Documentation, Vital Signs Vital Signs: Last Vital Signs Temp 98.4 F 06/04/18 16:30 Pulse 80 06/04/18 16:30 Resp 16 06/04/18 16:30 BP 125/78 06/04/18 16:30 Pulse Ox 97 06/04/18 16:30 - Medical History PMH: Asthma, CAD, COPD (asthma), Diabetes (type II), Deep Vein Thrombosis, HTN, Hypercholesterolemia, Hyperlipidemia, Kidney Stones (X 2), Osteoporosis, Chronic Kidney Disease - Surgical History Surgical History: CABG (quadruple), Coronary Stent (x2), Tonsillectomy Denies: Pacemaker - Family History Family History: States: Unknown Family Hx - Home Medications Home Medications: Ambulatory Orders Medication Instructions Recorded Insulin Glargine,Hum.rec.anlog 70 units SQ HS 01/15/16 [Toujeo Solostar] Metoprolol Tartrate [Lopressor] 100 mg PO DAILY 01/15/16 SITagliptin [Januvia] 25 mg PO DAILY 01/15/16 Albuterol Sulfate [Proair Hfa] 2 puff IH Q4H PRN 11/18/16 Aspirin [Ecotrin] 81 mg PO DAILY 11/18/16 Famotidine [Pepcid] 20 mg PO PRN PRN 01/13/18 Insulin Lispro [Humalog Kwikpen 14 unit SC BRK 01/13/18 U-200] Insulin Lispro [Humalog Kwikpen 18 unit SC ACL 01/13/18 U-200] Insulin Lispro [Humalog Kwikpen 24 unit SC DIN 01/13/18 U-200] Travoprost [Travatan Z] 1 drop EACHEYE HS 01/13/18 Lidocaine 5% [Lidoderm] 1 ea TD DAILY #14 patch 01/20/18 amLODIPine [Norvasc] 10 mg PO DAILY #30 tab 01/20/18 traMADol [Ultram] 50 mg PO Q6 PRN #20 tab 01/20/18 Compress.stocking,Knee,Reg,Lrg 1 each MC ONCE PRN #1 each 06/04/18 [Relief Knee Close Toe] - Allergies Allergies/Adverse Reactions: Allergies Allergy/AdvReac Type Severity Reaction Status Date / Time Penicillins Allergy RASH Verified 06/04/18 16:30 shrimp AdvReac SWELLING Verified 06/04/18 16:30 Review of Systems ROS Statement: Except As Marked, All Systems Reviewed And Found Negative Cardiovascular: Negative for: Chest Pain Respiratory: Positive for: Other (no orthopnea). Negative for: Shortness of Breath Musculoskeletal: Positive for: Leg Pain (at night), Other (bilateral lower extremity swelling) Physical Exam - Reviewed Nursing Documentation Reviewed: Yes Vital Signs Reviewed: Yes - Physical Exam Appears: Positive for: Well Head Exam: Positive for: ATRAUMATIC, NORMOCEPHALIC Skin: Positive for: Normal Color, Warm, Dry Eye Exam: Positive for: EOMI, Normal appearance, PERRL Neck: Positive for: Normal Cardiovascular/Chest: Positive for: Regular Rate, Rhythm, Other (chest exam: sternal scar well healed, no erythema or drainage ). Negative for: Murmur Respiratory: Positive for: Normal Breath Sounds. Negative for: Respiratory Distress Pulses-Dorsalis Pedis (L): 2+ Pulses-Dorsalis Pedis (R): 2+ Extremity: Positive for: Pedal Edema (2+ pitting edema bilaterally from lower extremity to mid-calf ), Capillary Refill (less than two seconds), Other (n egative Homen's sign ). Negative for: Calf Tenderness Neurological/Psych: Positive for: Awake, Alert, Oriented (x3) - ECG O2 Sat by Pulse Oximetry: 97 (RA) Pulse Ox Interpretation: Normal Medical Decision Making Medical Decision Making: Time: 1656 --Bilateral lower extremity venous duplex to rule out DVT. If negative, patient advised to use compression stockings if okay as per book packer. Discussed possible change of amlodipine because it can cause lower extremity swelling. Time: 1757 US Duplex: FINDINGS: COMMON FEMORAL VEIN: Right CFV: Unremarkable. Left CFV: Unremarkable. SUPERFICIAL FEMORAL VEIN: Right SFV: Unremarkable. Left SFV: Unremarkable. POPLITEAL VEIN: Right Popliteal: Unremarkable. Left Popliteal: Unremarkable. POSTERIOR TIBIAL VEIN: Right PTV: Unremarkable. Left PTV: Unremarkable. OTHER FINDINGS: Morphologically, unremarkable lymph node(s) IMPRESSION: No evidence of deep venous thrombosis. Time: 1822 --Patient informed of US results, advised to follow up with book packer or PMD to discuss change of medication and clearance to use compression stockings. Patient is in agreement of plan of care. Stable for d/c home with instruction to continue current meds. ScribeAttestation: Documented byMilka Eagle, acting as a scribe for Char Walters PA-C. Provider ScribeAttestation: All medical record entries made by the Scribe were at my direction and personally dictated by me. I have reviewed the chart and agree that the record accurately reflects my personal performance of the history, physical exam, medical decision making, and the department course for this patient. I have also personally directed, reviewed, and agree with the discharge instructions and disposition. Disposition - Clinical Impression Clinical Impression: Swelling of both lower extremities - Patient ED Disposition Is Patient to be Admitted: No - Disposition Referrals: Jesús West MD [Staff Provider] - Breanne Orr MD [Staff Provider] - Disposition: Routine/Home Disposition Time: 18:23 Condition: STABLE Additional Instructions: Follow up with your book packer or primary care doctor as soon as possible to discuss possible need to change Amlodipine to another medication and to discuss if ok to wear compression stockings for swelling. Elevate legs at the end of day or whenever standing for long period of time to help reduce swelling. Continue medications as prescribed. Prescriptions: Compress.stocking,Knee,Reg,Lrg [Relief Knee Close Toe] 1 each MC ONCE PRN #1 each PRN Reason: Swelling Forms: [employer] ([place]ian) Print Language: CITIZEN OF [place]
== END 2018-06-04 18:52 | disposition home or self-care (01) ==
LOC: H.ER 16:23
DX: R60.0 Localized edema (principal); E11.22 Type 2 diabetes mellitus with diabetic chronic kidney disease; E78.00 Pure hypercholesterolemia, unspecified; I12.9 Hypertensive chronic kidney disease with stage 1 through stage 4 chronic kidney disease, or unspecified chronic kidney disease; Z79.4 Long term (current) use of insulin; Z86.718 Personal history of other venous thrombosis and embolism; Z88.0 Allergy status to penicillin; Z95.1 Presence of aortocoronary bypass graft; Z95.5 Presence of coronary angioplasty implant and graft